=== PATIENT | female | born 1940 ===

== ENCOUNTER 2018-01-03 12:36 | Inpatient (IN) | payer MEDICARE, MEDICAID ==
[2018-01-03 13:03] VITALS: BMI 28.3
[2018-01-03 13:44] LABS: VENOUS BLOOD GAS BASE EXCESS 1.3 mmol/L (0.0-2.0); VENOUS BLOOD GAS PO2 42 mm/Hg (30-55); VENOUS BLOOD PH 7.42 (7.32-7.43)
[2018-01-03 13:47] LABS: BASO # 0.02 K/mm3 (0.0-2.0); BASO % 0.2 % (0.0-3.0); EOS # 0.1 (0.0-0.7); EOS % 0.4 % (1.5-5.0); GRAN # 8.2 (1.4-6.5); HEMOGLOBIN 11.2 g/dL (12.0-16.0); LYMPH # 2.2 (1.2-3.4); LYMPH % 19.6 % (22.0-35.0); MEAN CORPUSCULAR HEMOGLOBIN 31.3 pg (25.0-35.0); MEAN CORPUSCULAR HGB CONC 36.4 g/dl (31.0-37.0); MEAN PLATELET VOLUME 10.8 fl (7.0-11.0); MONO # 0.8 (0.1-0.6); MONO % 6.8 % (1.0-6.0); RBC 3.58 10^6/uL (3.5-6.1); RED CELL DISTRIBUTION WIDTH 12.5 % (11.5-14.5); WHITE BLOOD COUNT 11.3 10^3/ul (4.5-11.0)
--- NOTE | 2018-01-03 13:55 | ED PDOC ---
Arrival/HPI - General Historian: Family EM Caveat: Altered Mental Status, Dementia, Uncooperative, Language Barrier - History of Present Illness Narrative History of Present Illness (Text): 01/03/18 13:58 77 F with PMHx of Alzheimer's Disease, HTN, RA, GERD presenting to the ED with AMS, possible syncopal episode. Patient refuses to talk and daughter at bedside is poor historian. Per daughter, patient was at home with other daughter when she became dizzy and fell on her bed earlier this AM. Patient was witnessed shaking on her bed for ~30 mins, eyes closed during the episode. Patient was nonverbal during the encounter; daughter denies any frothing at the mouth or tongue biting. Of note, daughter endorses 2 episodes of nonbloody nonbilious vomiting this morning prior to the episode. ROS unattainable due to patient's condition. PMHx: HTN, GERD, RA, Alzheimer's Disease PSHx: R knee, hysterectomy, appendectomy, bladder Allergies: contrast dye Home Medications: as per chart FHx: unknown Social Hx: no alcohol, tobacco, illicit drug use. PMD: Dr. Roche ([employer]) Time/Duration: 4-6 hours Symptom Onset: Sudden Symptom Course: Unchanged Quality: Unable to Describe Activities at Onset: Light <Yony Moy - Last Filed: 01/03/18 17:14> <Sahil Mccormick - Last Filed: 01/03/18 19:51> - General Chief Complaint: Back Pain Time Seen by Provider: 01/03/18 13:33 Past Medical History - Provider Review Nursing Documentation Reviewed: Yes - Infectious Disease Hx of Infectious Diseases: None - Reproductive Menopause: Yes - Cardiac Hx Hypertension: Yes - Pulmonary Hx Respiratory Disorders: No - Neurological Hx Alzheimer's Disease: Yes - HEENT Hx Cataracts: Yes (sx ou) - Renal Hx Renal Disorder: No - Endocrine/Metabolic Hx Endocrine Disorders: No - Hematological/Oncological Hx Blood Disorders: No - Integumentary Hx Dermatological Disorder: No - Musculoskeletal/Rheumatological Hx Arthritis: Yes Hx Osteoporosis: Yes Hx Rheumatoid Arthritis: Yes - Gastrointestinal Hx Gastrointestinal Disorders: No - Genitourinary/Gynecological Hx Genitourinary Disorders: No - Psychiatric Hx Psychophysiologic Disorder: No Hx Substance Use: No - Surgical History Hx Appendectomy: Yes - Anesthesia Hx Anesthesia: Yes Hx Anesthesia Reactions: No Hx Malignant Hyperthermia: No <Yony Moy - Last Filed: 01/03/18 17:14> Family/Social History - Physician Review Nursing Documentation Reviewed: Yes Family/Social History: Unknown Family HX Smoking Status: Never Smoked Hx Alcohol Use: No Hx Substance Use: No <Yony Moy - Last Filed: 01/03/18 17:14> Allergies/Home Meds <Yony Moy - Last Filed: 01/03/18 17:14> <Sahil Mccormick - Last Filed: 01/03/18 19:51> Allergies/Adverse Reactions: Allergies Iodinated Contrast- Oral and IV Dye [Iodinated Contrast Media - IV Dye] Allergy (Verified 10/07/15 14:42) RASH iodine Adverse Reaction (Verified 10/28/16 13:41) SWELLING Home Medications: Home Meds Medication Instructions Recorded Confirmed RX: Baclofen [Lioresal] 10 mg PO BID 02/03/17 01/03/18 RX: Clopidogrel [Plavix] 75 mg PO DAILY 02/03/17 01/03/18 RX: Folic Acid 1 mg PO DAILY 02/03/17 01/03/18 RX: Lubiprostone [Amitiza] 24 mcg PO BID 02/03/17 01/03/18 RX: Memantine [Namenda] 10 mg PO DAILY 02/03/17 01/03/18 RX: Omeprazole 20 mg PO DAILY 02/03/17 01/03/18 Ascorbic Acid [Vitamin C with Zita 1 tab PO DAILY 01/03/18 01/03/18 Hips] Cyanocobalamin [Vitamin B12 1000 1 tab PO DAILY 01/03/18 01/03/18 mcg Tab] Cyclobenzaprine [Flexeril] 1 tab PO BID 01/03/18 01/03/18 Fish Oil/Dha/Epa [Fish Oil 1,200 1 cap PO DAILY 01/03/18 01/03/18 mg Fish Oil] Furosemide [Lasix] 1 tab PO DAILY 01/03/18 01/03/18 Pantoprazole [Protonix EC Tab] 1 tab PO DAILY 01/03/18 01/03/18 RX: Aspirin [Ecotrin] 1 tab PO DAILY 01/03/18 01/03/18 RX: Atorvastatin [Lipitor] 1 tab PO HS 01/03/18 01/03/18 RX: Baclofen [Lioresal] 1 tab PO BID 01/03/18 01/03/18 RX: Diclofenac Sodium [Voltaren] 1 tab PO BID 01/03/18 01/03/18 RX: Enalapril Maleate [Vasotec] 20 mg PO DAILY 01/03/18 01/03/18 RX: Loratadine [Claritin] 1 tab PO DAILY 01/03/18 01/03/18 RX: amLODIPine [Norvasc] 1 tab PO DAILY 01/03/18 01/03/18 RX: hydroCHLOROthiazide 1 tab PO DAILY 01/03/18 01/03/18 [Hydrodiuril] Vitamin B Complex [Super B-50 1 cap PO DAILY 01/03/18 01/03/18 Complex] Review of Systems - Review of Systems Systems not reviewed;Unavailable: Uncooperative <Yony Moy - Last Filed: 01/03/18 17:14> Physical Exam - Physical Exam Physical Exam Limitations: Altered Mental Status, Uncooperative Vital Signs Reviewed: Yes Vital Signs Temp Pulse Resp BP Pulse Ox 01/03/18 12:50 97.4 F L 83 16 113/48 L 100 Temperature: Afebrile Blood Pressure: Hypotensive Pulse: Regular Respiratory Rate: Normal Appearance: Positive for: Uncomfortable Mental Status: Positive for: Confused, Agitated Finger Stick Blood Glucose: 124 - Systems Exam Head: Present: Atraumatic, Normocephalic Pupils: Present: Other (Pt refuses to open eyes) Mouth: Present: Other (Pt refuses to open mouth) Pharnyx: Present: Other (Pt refuses to open mouth) Nose (External): Present: Atraumatic Respiratory/Chest: Present: Clear to Auscultation. No: Accessory Muscle Use Cardiovascular: Present: Regular Rate and Rhythm, Normal S1, S2 Abdomen: Present: Tenderness (TTP x4 quadrants), Normal Bowel Sounds. No: Rebound, Guarding Upper Extremity: Present: Normal Inspection, NORMAL PULSES, Capillary Refill < 2s, Other (B/L UE contracted. Pt keeps arms flexed, hands clenched to chest, refuses to move). No: Cyanosis, Edema, Tenderness, Swelling Lower Extremity: Present: Normal Inspection, Edema, NORMAL PULSES, Capillary Refill < 2 s. No: CALF TENDERNESS, Cyanosis Neurological: No: Speech Normal (Patient refusing to speak; normally verbal, per daughter at bedside) Skin: Present: Warm, Dry, Normal Color Psychiatric: Present: Agitated <Yony Moy - Last Filed: 01/03/18 17:14> Vital Signs Temp Pulse Resp BP Pulse Ox 01/03/18 12:50 97.4 F L 83 16 113/48 L 100 <Sahil Mccormick - Last Filed: 01/03/18 19:51> Medical Decision Making ED Course and Treatment: 01/03/18 14:09 Impression: 77 yo F with PMHx of HTN, GERD, RA, Alzheimer's disease presenting with AMS, possible syncopal episode Plan: --CBC, CMP --PT/PTT --EKG --Troponin --VBG --UA --UCx, BCx --IVF --CXR --Head CT w/o contrast --CT abd/pelvis w/o contrast --monitor and disposition - Lab Interpretations Lab Results: Lab Results 01/03/18 13:15: pO2 42, VBG pH 7.42, VBG pCO2 40.0, VBG HCO3 25.9, VBG Total CO2 27.1, VBG O2 Sat (Calc) 83.4 H, VBG Base Excess 1.3, VBG Potassium 4.5, Sodium 118.0 L*, Chloride 83.0 L, Glucose 98, Lactate 1.7, FiO2 21.0, Venous Blood Potassium 4.5 - RAD Interpretation Narrative RAD Interpretations (Text): 01/03/18 16:46 CXR: no acute findings CT head: no acute findings CT abdomen/pelvis: no acute findings Restaurant Lead: ED Physician - EKG Interpretation EKG Interpretation (Text): 01/03/18 14:11 Sinus rhythm with 1st degree AV block with premature supraventricular complexes HR [address] and T wave abnormality, consider lateral ischemia Interpreted by ED Physician: Yes Type: 12 lead EKG <Yony Moy - Last Filed: 01/03/18 17:14> ED Course and Treatment: 01/03/18 Patient Seen With Resident: In agreement with resident note. Patient was seen and evaluated with resident, came up with plan and treatment together. Impression: Patient is a 77 year old female who presents to the Emergency department with her daughter for altered mental status and possible syncopal event. 01/03/18 19:50 pt seen with resident ?syncope, ams. in er, pt with urianry renetion, 1000cc. new hyponatremia, and tamara. ct neg. cxr neg. suspect post renal azotemia, accepted hospitalist. - Lab Interpretations Lab Results: 01/03/18 13:15 01/03/18 13:50 Lab Results 01/03/18 14:00: Urine Color Yellow, Urine Appearance Clear, Urine pH 7.5, Ur Specific [place] 1.010, Urine Protein Trace H, Urine Glucose (UA) Negative, Urine Ketones Negative, Urine Blood Small H, Urine Nitrate Negative, Urine Bilirubin Negative, Urine Urobilinogen 0.2, Ur Leukocyte Esterase Small H, Urine RBC 5 - 10, Urine WBC 5 - 10, Ur Epithelial Cells 4 - 5, Urine Bacteria Mod 01/03/18 13:50: Sodium 123 L, Chloride 83 L, Potassium 4.7, Carbon Dioxide 24, Anion Gap 21 H, BUN 67 H, Creatinine 2.5 H, Est GFR ( Amer) 23, Est GFR (Non-Af Amer) 19, Random Glucose 99, Calcium 10.8 H, Total Bilirubin 0.5, AST 40 H D, ALT 31, Alkaline Phosphatase 74, Total Creatine Kinase 214, Troponin I 0.03, Total Protein 7.6, Albumin 4.4, Globulin 3.3, Albumin/Globulin Ratio 1.3 01/03/18 13:15: pO2 42, VBG pH 7.42, VBG pCO2 40.0, VBG HCO3 25.9, VBG Total CO2 27.1, VBG O2 Sat (Calc) 83.4 H, VBG Base Excess 1.3, VBG Potassium 4.5, Sodium 118.0 L*, Chloride 83.0 L, Glucose 98, Lactate 1.7, FiO2 21.0, Venous Blood Potassium 4.5 01/03/18 13:15: PT 10.6, INR 0.93, APTT 24.5 L 01/03/18 13:15: WBC 11.3 H, RBC 3.58, Hgb 11.2 L, Hct 30.8 L, MCV 86.0, MCH 31.3, MCHC 36.4, RDW 12.5, Plt Count 259, MPV 10.8, Gran % 73.0 H, Lymph % (Auto) 19.6 L, [place] % (Auto) 6.8 H, Eos % (Auto) 0.4 L, Baso % (Auto) 0.2, Gran # 8.20 H, Lymph # (Auto) 2.2, [place] # (Auto) 0.8 H, Eos # (Auto) 0.1, Baso # (Auto) 0.02 - RAD Interpretation Narrative RAD Interpretations (Text): 01/03/18 16:[address] without Contrast: Dictator : Ilir Hong MD FINDINGS: HEMORRHAGE: No intracranial hemorrhage. BRAIN: No mass effect or edema. There is mild to moderate atrophy. VENTRICLES: Unremarkable. No hydrocephalus. CALVARIUM: Unremarkable. PARANASAL SINUSES: Unremarkable as visualized. No significant inflammatory changes. MASTOID AIR CELLS: Unremarkable as visualized. No inflammatory changes. OTHER FINDINGS: None. IMPRESSION: No acute findings 01/03/18 16:[address] without contrast: Dictator : Ilir Hong MD FINDINGS: LOWER THORAX: Unremarkable. LIVER: Unremarkable. No gross lesion or ductal dilatation. GALLBLADDER AND BILE DUCTS: Unremarkable. PANCREAS: Unremarkable. No gross lesion or ductal dilatation. SPLEEN: Unremarkable. ADRENALS: Unremarkable. No mass. KIDNEYS AND URETERS: Unremarkable. No hydronephrosis. No solid mass. VASCULATURE: Unremarkable. No aortic aneurysm. BOWEL: Unremarkable. No obstruction. No gross mural thickening. APPENDIX: Unremarkable. Normal appendix. PERITONEUM: Unremarkable. No free fluid. No free air. LYMPH NODES: Unremarkable. No enlarged lymph nodes. BLADDER: Unremarkable. REPRODUCTIVE: Unremarkable. BONES: No acute fracture. OTHER FINDINGS: None. IMPRESSION: No acute intra-abdominal findings 01/03/18 16:58 Chest X-ray: Dictator : Ilir Hong MD FINDINGS: LUNGS: No active pulmonary disease. PLEURA: No significant pleural effusion identified, no pneumothorax apparent. CARDIOVASCULAR: Normal. OSSEOUS STRUCTURES: No significant abnormalities. VISUALIZED UPPER ABDOMEN:Normal. OTHER FINDINGS: Mild aortic tortuosity. The patient's hands are superimposed over the upper chest IMPRESSION: No active disease. Radiology Orders: 01/03/18 13:54 ABD & PELVIS W/O PO OR IV CONT [CT] Stat HEAD W/O CONTRAST [CT] Stat CXR [CHEST PORTABLE] [RAD] Stat Restaurant Lead: Radiologist - Medication Orders Current Medication Orders: Sodium Chloride (Sodium Chloride 0.9%) 1,000 mls @ 100 mls/hr IV .Q10H NÉSTOR Last Admin: 01/03/18 14:57 Dose: 100 mls/hr eMAR Start Stop Document 01/03/18 14:57 SRE (Rec: 01/03/18 14:57 SRE [id number]) Intravenous Solution Start Date 01/03/18 Start Time 14:57 Discontinued Medications Ceftriaxone Sodium (Rocephin 1 Gram Ivpb) 1 gm in 100 mls @ 100 mls/hr IVPB STAT STA; Protocol Stop: 01/03/18 15:37 Last Admin: 01/03/18 14:56 Dose: 100 mls/hr eMAR Start Stop Document 01/03/18 14:56 SRE (Rec: 01/03/18 14:56 SRE [id number]) Intravenous Solution Start Date 01/03/18 Start Time 14:56 End Date 01/03/18 End time 15:55 Total Infusion Time 59 <Sahil Mccormick - Last Filed: 01/03/18 19:51> - Scribe Statement The provider has reviewed the documentation as recorded by the Scribanabelle Turner Provider Scribe Attestation: All medical record entries made by the Scribe were at my direction and personally dictated by me. I have reviewed the chart and agree that the record accurately reflects my personal performance of the history, physical exam, medical decision making, and the department course for this patient. I have also personally directed, reviewed, and agree with the discharge instructions and disposition. <Sahil Mccomrick - Last Filed: 01/03/18 19:51> Disposition/Present on Arrival - Present on Arrival Any Indicators Present on Arrival: No History of DVT/PE: No History of Uncontrolled Diabetes: No Urinary Catheter: No History of Decub. Ulcer: No History Surgical Site Infection Following: None - Disposition Have Diagnosis and Disposition been Completed?: Yes Disposition Time: 16:48 <Yony Moy - Last Filed: 01/03/18 17:14> <Sahil Mccormick - Last Filed: 01/03/18 19:51> - Disposition Diagnosis: UTI (urinary tract infection), Hyponatremia, Altered mental status Disposition: HOSPITALIZED Patient Problems: Current Active Problems Problem Status Onset Altered mental status Acute Hyponatremia Acute Urinary tract infection Acute Condition: STABLE
[2018-01-03 13:56] LABS: INR 0.93; PARTIAL THROMBOPLASTIN TIME 24.5 Seconds (25.1-36.5); PROTHROMBIN TIME 10.6 SECONDS (9.4-12.5)
[2018-01-03] MEDS ORDERED: Sodium Chloride 0.9% 1,000 ML IV SCH (14:00)
[2018-01-03 14:17] LABS: ALB/GLOB RATIO 1.3 (1.1-1.8); ALBUMIN 4.4 g/dL (3.0-4.8); CALCIUM 10.8 mg/dL (8.4-10.5)
[2018-01-03 14:22] LABS: PH,URINE 7.5 (4.7-8.0); URINE BILIRUBIN NEGATIVE (NEGATIVE); URINE BLOOD SMALL (NEGATIVE); URINE GLUCOSE (UA) NEGATIVE (NEGATIVE); URINE LEUKOCYTE ESTERASE SMALL Leu/uL (NEGATIVE); URINE PROTEIN TRACE mg/dL (<30 mg/dL); URINE UROBILINOGEN 0.2 E.U./dL (<1 E.U./dL)
[2018-01-03 14:28] LABS: TROPONIN I 0.03 ng/mL
[2018-01-03 14:33] LABS: URINE APPEARANCE CLEAR (CLEAR); URINE COLOR YELLOW (YELLOW)
[2018-01-03 14:37] LABS: URINE BACTERIA MOD (NEG)
[2018-01-03] MEDS ORDERED: cefTRIAXone 1 gm 1 GM/100 ML BAG IVPB STA (14:38)
--- NOTE | 2018-01-03 14:44 | RAD ---
Date of service: 01/03/2018 HISTORY: ams COMPARISON: 09/22/2017 FINDINGS: LUNGS: No active pulmonary disease. PLEURA: No significant pleural effusion identified, no pneumothorax apparent. CARDIOVASCULAR: Normal. OSSEOUS STRUCTURES: No significant abnormalities. VISUALIZED UPPER ABDOMEN: Normal. OTHER FINDINGS: Mild aortic tortuosity. The patient's hands are superimposed over the upper chest IMPRESSION: No active disease.
--- NOTE | 2018-01-03 14:58 | CT ---
Date of service: 01/03/2018 PROCEDURE: CT HEAD WITHOUT CONTRAST. HISTORY: ams COMPARISON: None available. TECHNIQUE: Axial computed tomography images were obtained through the head/brain without intravenous contrast. Radiation dose: Total exam DLP = 857 mGy-cm. This CT exam was performed using one or more of the following dose reduction techniques: Automated exposure control, adjustment of the mA and/or kV according to patient size, and/or use of iterative reconstruction technique. FINDINGS: HEMORRHAGE: No intracranial hemorrhage. BRAIN: No mass effect or edema. There is mild to moderate atrophy. VENTRICLES: Unremarkable. No hydrocephalus. CALVARIUM: Unremarkable. PARANASAL SINUSES: Unremarkable as visualized. No significant inflammatory changes. MASTOID AIR CELLS: Unremarkable as visualized. No inflammatory changes. OTHER FINDINGS: None. IMPRESSION: No acute findings
--- NOTE | 2018-01-03 15:01 | CT ---
Date of service: 01/03/2018 PROCEDURE: CT Abdomen and Pelvis without intravenous contrast HISTORY: abd pain/ams COMPARISON: None. TECHNIQUE: Without contrast.. Contrast dose: Radiation dose: Total exam DLP = 886 mGy-cm. This CT exam was performed using one or more of the following dose reduction techniques: Automated exposure control, adjustment of the mA and/or kV according to patient size, and/or use of iterative reconstruction technique. FINDINGS: LOWER THORAX: Unremarkable. LIVER: Unremarkable. No gross lesion or ductal dilatation. GALLBLADDER AND BILE DUCTS: Unremarkable. PANCREAS: Unremarkable. No gross lesion or ductal dilatation. SPLEEN: Unremarkable. ADRENALS: Unremarkable. No mass. KIDNEYS AND URETERS: Unremarkable. No hydronephrosis. No solid mass. VASCULATURE: Unremarkable. No aortic aneurysm. BOWEL: Unremarkable. No obstruction. No gross mural thickening. APPENDIX: Unremarkable. Normal appendix. PERITONEUM: Unremarkable. No free fluid. No free air. LYMPH NODES: Unremarkable. No enlarged lymph nodes. BLADDER: Unremarkable. REPRODUCTIVE: Unremarkable. BONES: No acute fracture. OTHER FINDINGS: None. IMPRESSION: No acute intra-abdominal findings
--- NOTE | 2018-01-03 15:48 | CARD ---
APPROVED REPORT Date of service: 01/03/2018 EKG Measurement Heart [id number] <Conclusion> Sinus rhythm with 1st degree AV block Baseline artifact Abnormal ECG
[2018-01-03 16:20] LABS: OSMOLALITY,URINE 149 mosm/kg (300-1000)
--- NOTE | 2018-01-03 16:35 | CP.PCM.HP ---
<Merry Rosales - Last Filed: 01/04/18 00:48> History of Present Illness - History of Present Illness History of Present Illness: Internal medicine History and Physical for Dr. Ledbetter 77 y/o F with PMHx of Alzheimer's Disease, HTN, RA, GERD who is yakut speaking only presents to ED after experiencing generalized muscle tightness and inability to talk. Symptoms lasted for about 3 hours and resolved on their own. Patient is accompanied by her daughters. Per daughter,patient was at home when she became dizzy and fell onto her bed earlier this AM. Patient states that she had whole body muscle rigidity and had clenched jaws. She was not able to communicate with her daughters. Patient denies LOC and was aware of her surroundings. She was able to talk and her muscles relaxed while she was in the ED. upon interview patient had resolved to baseline was alert orientedx4 able to subtract by sevens and handles her own grocery shopping and finances at home and was able to communicate this. CT head was ordered in ED and was negative. In the ED, a catheter was inserted and 1700cc of urine was voided. Patient denies abdominal pain dysuria, pain with urination, fevers, and chills. She states she did void this morning and felt that she emptied her bladder completely. Patient did experience 2 episodes of nonbloody vomiting this morning prior to this episode but denies any diarrhea or changes in bowel habits. Patient denies headache, CP, SOB, abdominal pain, sore throat, weakness, numbness, vision loss, hearing loss. PMHx: HTN, GERD, RA, Alzheimer's Disease, UTI requiring hospitalization in Mar 2017 PSHx: R knee, hysterectomy, appendectomy, bladder Allergies: Iodine Family Hx: DM in family Social hx: Lives with daughter. Denies smoking and alcohol use. PCP: Dr. Roche Present on Admission - Present on Admission Any Indicators Present on Admission: Yes Urinary Catheter: Yes Review of Systems - Review of Systems All systems: reviewed and no additional remarkable complaints except Review of Systems: as per HPI Past Patient History - Infectious Disease Hx of Infectious Diseases: None - Past Medical History & Family History Past Medical History?: Yes - Past Social History Smoking Status: Never Smoked - CARDIAC Hx Hypertension: Yes - PULMONARY Hx Respiratory Disorders: No - NEUROLOGICAL Hx Alzheimer's Disease: Yes - HEENT Hx Cataracts: Yes (sx ou) - RENAL Hx Chronic Kidney Disease: No - ENDOCRINE/METABOLIC Hx Endocrine Disorders: No - HEMATOLOGICAL/ONCOLOGICAL Hx Blood Disorders: No - INTEGUMENTARY Hx Dermatological Problems: No - MUSCULOSKELETAL/RHEUMATOLOGICAL Hx Arthritis: Yes Hx Osteoporosis: Yes Hx Rheumatoid Arthritis: Yes - GASTROINTESTINAL Hx Gastrointestinal Disorders: No - GENITOURINARY/GYNECOLOGICAL Hx Genitourinary Disorders: No - PSYCHIATRIC Hx Psychophysiologic Disorder: No Hx Substance Use: No - SURGICAL HISTORY Hx Appendectomy: Yes - ANESTHESIA Hx Anesthesia: Yes Hx Anesthesia Reactions: No Hx Malignant Hyperthermia: No Meds Allergies/Adverse Reactions: Allergies Allergy/AdvReac Type Severity Reaction Status Date / Time Iodinated Contrast- Oral and Allergy RASH Verified 10/07/15 14:42 IV Dye [Iodinated Contrast Media - IV Dye] iodine AdvReac SWELLING Verified 10/28/16 13:41 Physical Exam - Constitutional Appears: Well, Non-toxic, No Acute Distress, Chronically Ill - Head Exam Head Exam: ATRAUMATIC, NORMOCEPHALIC - Eye Exam Eye Exam: EOMI - ENT Exam ENT Exam: Mucous Membranes Dry - Respiratory Exam Respiratory Exam: Clear to Auscultation Bilateral, NORMAL BREATHING PATTERN - Cardiovascular Exam Cardiovascular Exam: REGULAR RHYTHM - GI/Abdominal Exam GI & Abdominal Exam: Soft. absent: Distended, Guarding, Rebound, Rigid, Tenderness - Extremities Exam Extremities exam: Positive for: pedal pulses present. Negative for: calf tenderness, pedal edema, tenderness - Neurological Exam Neurological exam: Alert, CN II-XII Intact, Oriented x3 - Psychiatric Exam Psychiatric exam: Normal Affect, Normal Mood - Skin Skin Exam: Dry, Intact, Normal Color, Warm Results - Vital Signs Recent Vital Signs: Last Vital Signs Temp 97.4 F L 01/03/18 12:50 Pulse 87 01/03/18 16:14 Resp 18 01/03/18 16:14 BP 129/44 L 01/03/18 16:14 Pulse Ox 100 01/03/18 16:14 - Labs Result Diagrams: 01/03/18 13:15 01/03/18 23:50 Labs: Laboratory Results - last 24 hr 01/03/18 01/03/18 01/03/18 13:15 13:15 13:15 WBC 11.3 H RBC 3.58 Hgb 11.2 L Hct 30.8 L MCV 86.0 MCH 31.3 MCHC 36.4 RDW 12.5 Plt Count 259 MPV 10.8 Gran % 73.0 H Lymph % (Auto) 19.6 L [place] % (Auto) 6.8 H Eos % (Auto) 0.4 L Baso % (Auto) 0.2 Gran # 8.20 H Lymph # (Auto) 2.2 [place] # (Auto) 0.8 H Eos # (Auto) 0.1 Baso # (Auto) 0.02 PT 10.6 INR 0.93 APTT 24.5 L pO2 42 VBG pH 7.42 VBG pCO2 40.0 VBG HCO3 25.9 VBG Total CO2 27.1 VBG O2 Sat (Calc) 83.4 H VBG Base Excess 1.3 VBG Potassium 4.5 Sodium 118.0 L* Chloride 83.0 L Glucose 98 Lactate 1.7 FiO2 21.0 Potassium Carbon Dioxide Anion Gap BUN Creatinine Est GFR ( Amer) Est GFR (Non-Af Amer) Random Glucose Serum Osmolality Calcium Total Bilirubin AST ALT Alkaline Phosphatase Total Creatine Kinase Troponin I Total Protein Albumin Globulin Albumin/Globulin Ratio Venous Blood Potassium 4.5 Urine Color Urine Appearance Urine pH Ur Specific [place] Urine Protein Urine Glucose (UA) Urine Ketones Urine Blood Urine Nitrate Urine Bilirubin Urine Urobilinogen Ur Leukocyte Esterase Urine RBC Urine WBC Ur Epithelial Cells Urine Bacteria Urine Osmolality Ur Random Sodium 01/03/18 01/03/18 01/03/18 13:50 13:50 14:00 WBC RBC Hgb Hct MCV MCH MCHC RDW Plt Count MPV Gran % Lymph % (Auto) [place] % (Auto) Eos % (Auto) Baso % (Auto) Gran # Lymph # (Auto) [place] # (Auto) Eos # (Auto) Baso # (Auto) PT INR APTT pO2 VBG pH VBG pCO2 VBG HCO3 VBG Total CO2 VBG O2 Sat (Calc) VBG Base Excess VBG Potassium Sodium 123 L Chloride 83 L Glucose Lactate FiO2 Potassium 4.7 Carbon Dioxide 24 Anion Gap 21 H BUN 67 H Creatinine 2.5 H Est GFR ( Amer) 23 Est GFR (Non-Af Amer) 19 Random Glucose 99 Serum Osmolality 276 Calcium 10.8 H Total Bilirubin 0.5 AST 40 H D ALT 31 Alkaline Phosphatase 74 Total Creatine Kinase 214 Troponin I 0.03 Total Protein 7.6 Albumin 4.4 Globulin 3.3 Albumin/Globulin Ratio 1.3 Venous Blood Potassium Urine Color Yellow Urine Appearance Clear Urine pH 7.5 Ur Specific [place] 1.010 Urine Protein Trace H Urine Glucose (UA) Negative Urine Ketones Negative Urine Blood Small H Urine Nitrate Negative Urine Bilirubin Negative Urine Urobilinogen 0.2 Ur Leukocyte Esterase Small H Urine RBC 5 - 10 Urine WBC 5 - 10 Ur Epithelial Cells 4 - 5 Urine Bacteria Mod Urine Osmolality Ur Random Sodium 01/03/18 15:58 WBC RBC Hgb Hct MCV MCH MCHC RDW Plt Count MPV Gran % Lymph % (Auto) [place] % (Auto) Eos % (Auto) Baso % (Auto) Gran # Lymph # (Auto) [place] # (Auto) Eos # (Auto) Baso # (Auto) PT INR APTT pO2 VBG pH VBG pCO2 VBG HCO3 VBG Total CO2 VBG O2 Sat (Calc) VBG Base Excess VBG Potassium Sodium Chloride Glucose Lactate FiO2 Potassium Carbon Dioxide Anion Gap BUN Creatinine Est GFR ( Amer) Est GFR (Non-Af Amer) Random Glucose Serum Osmolality Calcium Total Bilirubin AST ALT Alkaline Phosphatase Total Creatine Kinase Troponin I Total Protein Albumin Globulin Albumin/Globulin Ratio Venous Blood Potassium Urine Color Urine Appearance Urine pH Ur Specific [place] Urine Protein Urine Glucose (UA) Urine Ketones Urine Blood Urine Nitrate Urine Bilirubin Urine Urobilinogen Ur Leukocyte Esterase Urine RBC Urine WBC Ur Epithelial Cells Urine Bacteria Urine Osmolality 149 L Ur Random Sodium 43 Assessment & Plan - Assessment and Plan (Free Text) Assessment: 77yr F pmh HTN, GERD, RA, Alzheimer's Disease, UTI requiring hospitalization in Mar 2017 presents to [facility] ED with dizziness followed by episode of muscle clenchi ng in which the patient denies LOC and has full memory as well as urinary retention and hyponatremia. Patient may have become dizzy 2/2 excessive diuresis vs seizure (unlikely) vs UTI (WBC 11.8 afebrile UA with leuk esterase bacteria and WBC) Plan: Dizziness/ altered mental status * possibly d/t hyponatremia; will correct slowly * unlikely seizure activity as patient was aware and alert during the episode and has full memory * patient nutritional status may effect mental status will obtain nutrition eval Urinary retention * sethi output of 1700cc when placed * patient denies abdominal or suprapubic pain * likely due to over diuresis will attempt voiding trial after 24 hours sethi Hyponatremia * possibly d/t over diuresis * hold lasix, HCTZ and enalapril * begin gentle hydration of NS @70 * nutrition eval for possible failure of adequate intake * repat BMP in PM to monitor for improvement UTI * WBC, afebrile * UA shows positive leukocyte esterase, WBC and bacteria in urine * patient has history of UTI in March 2017 * begin on rocephin HTN * discontinue enalapril, HCTZ and lasix * c/w home amlodipine * will monitor GERD * c/w home medications * will monitor HLD * c/w home medications Patient seen and discussed with Dr. Anatoyl Rosales, PGY 1 - Date & Time Date: 01/03/18 Time: 15:30 <Alina Ledbetter - Last Filed: 01/06/18 14:56> Results - Vital Signs Recent Vital Signs: Last Vital Signs Temp 97.6 F 01/06/18 06:00 Pulse 84 01/06/18 12:00 Resp 18 01/06/18 12:00 BP 154/84 H 01/06/18 12:00 Pulse Ox 99 01/06/18 00:32 - Labs Result Diagrams: 01/06/18 12:30 01/06/18 12:30 Labs: Laboratory Results - last 24 hr 01/05/18 01/05/18 01/05/18 21:49 22:07 22:07 WBC 7.5 D RBC 3.54 Hgb 10.9 L Hct 32.2 L MCV 91.0 MCH 30.8 MCHC 33.9 RDW 13.4 Plt Count 259 MPV 9.9 Gran % 57.3 Lymph % (Auto) 31.3 [place] % (Auto) 10.0 H Eos % (Auto) 1.1 L Baso % (Auto) 0.3 Gran # 4.28 Lymph # (Auto) 2.3 [place] # (Auto) 0.8 H Eos # (Auto) 0.1 Baso # (Auto) 0.02 pCO2 pO2 HCO3 ABG pH ABG Total CO2 ABG O2 Saturation ABG Base Excess ABG Potassium Glucose Lactate FiO2 Sodium 137 Potassium 4.4 Chloride 107 Carbon Dioxide 22 Anion Gap 12 BUN 23 H Creatinine 1.0 Est GFR ( Amer) > 60 Est GFR (Non-Af Amer) 54 POC Glucose (mg/dL) 137 H Random Glucose 125 H Calcium 9.8 Phosphorus 2.3 L Magnesium 1.7 Total Bilirubin 0.2 AST 35 ALT 20 Alkaline Phosphatase 62 Lactate Dehydrogenase 415 Total Creatine Kinase 48 Troponin I 0.05 D NT-Pro-B Natriuret Pep 2230 H Total Protein 6.9 Albumin 3.7 Globulin 3.2 Albumin/Globulin Ratio 1.2 Prolactin 40.5 H Arterial Blood Potassium 01/05/18 01/06/18 01/06/18 22:10 12:30 12:30 WBC 7.8 RBC 3.75 Hgb 11.7 L Hct 34.4 L MCV 91.7 MCH 31.2 MCHC 34.0 RDW 13.4 Plt Count 258 MPV 9.8 Gran % 64.0 Lymph % (Auto) 28.6 [place] % (Auto) 5.4 Eos % (Auto) 1.7 Baso % (Auto) 0.3 Gran # 5.03 Lymph # (Auto) 2.2 [place] # (Auto) 0.4 Eos # (Auto) 0.1 Baso # (Auto) 0.02 pCO2 34 L pO2 121.0 H HCO3 22.1 ABG pH 7.42 ABG Total CO2 23.1 ABG O2 Saturation 98.6 H ABG Base Excess -1.7 ABG Potassium 4.2 Glucose 125 H Lactate 0.9 FiO2 28.0 Sodium 137.0 141 Potassium 4.4 Chloride 110.0 H 108 H Carbon Dioxide 23 Anion Gap 14 BUN 17 Creatinine 0.9 Est GFR ( Amer) > 60 Est GFR (Non-Af Amer) > 60 POC Glucose (mg/dL) Random Glucose 97 Calcium 10.9 H Phosphorus 2.6 Magnesium 1.7 Total Bilirubin 0.5 AST 29 ALT 20 Alkaline Phosphatase 66 Lactate Dehydrogenase 512 Total Creatine Kinase 56 Troponin I 0.09 D NT-Pro-B Natriuret Pep Total Protein 7.6 Albumin 4.2 Globulin 3.4 Albumin/Globulin Ratio 1.2 Prolactin Arterial Blood Potassium 4.2 Attending/Attestation - Attestation I have personally seen and examined this patient.: Yes I have fully participated in the care of the patient.: Yes I have reviewed all pertinent clinical information: Yes Notes (Text): 01/06/18 14:50 Medical record note made by the resident after discussion with my direction and input after the patient was personally seen and examined by me. I have reviewed the chart and agree that the record accurately reflects by personal performance of the history, physical exam, data review, and medical decision-making, in the course for the patient. I have also personally directed the plan of care. 77 yrs old Female with PMH of HTN, GERD, RA, Alzheimer's Disease and recurrent UTI is admitted with with dizziness followed by episode of muscle clenching in which the patient denies LOC and has full memory as well as urinary retention.Patient is also found to have UTI, acute renal failure and and hyponatremia secondary to over diuresis . We will hold diuretics and will start patient on IV hydration, we will monitor BUN/Creatinin and electrolye. UA, will start patient on IV antibiotics , will follow up cultures. Urinary Retension is likely due to medication, patient is on Baclofen, will hold muscle relaxant, UTI could have contributed. Management plan was discussed in detail with patient and family. Education was provided.
[2018-01-03] MEDS: Sodium Chloride 0.9% 1,000 ML IV SCH (17:22)
[2018-01-04 00:47] LABS: CALCIUM 10.3 mg/dL (8.4-10.5)
[2018-01-04] MEDS ORDERED: Sodium Chloride 0.9% 500 ML IV STA (04:56)
[2018-01-04 07:21] LABS: BASO # 0.02 K/mm3 (0.0-2.0); BASO % 0.3 % (0.0-3.0); EOS # 0.1 (0.0-0.7); EOS % 1.7 % (1.5-5.0); GRAN # 2.96 (1.4-6.5); GRAN % 51.3 % (50.0-68.0); HEMOGLOBIN 9.3 g/dL (12.0-16.0); LYMPH # 2.3 (1.2-3.4); LYMPH % 39.1 % (22.0-35.0); MEAN CELL VOLUME 87.9 fl (80.0-105.0); MEAN CORPUSCULAR HEMOGLOBIN 31.2 pg (25.0-35.0); MEAN CORPUSCULAR HGB CONC 35.5 g/dl (31.0-37.0); MEAN PLATELET VOLUME 10.3 fl (7.0-11.0); MONO # 0.4 (0.1-0.6); MONO % 7.6 % (1.0-6.0); RBC 2.98 10^6/uL (3.5-6.1); RED CELL DISTRIBUTION WIDTH 12.8 % (11.5-14.5); WHITE BLOOD COUNT 5.8 10^3/ul (4.5-11.0)
[2018-01-04 07:30] LABS: ALB/GLOB RATIO 1.2 (1.1-1.8); ALBUMIN 3.2 g/dL (3.0-4.8); CALCIUM 9.4 mg/dL (8.4-10.5)
[2018-01-04] MEDS: cefTRIAXone 1 gm 1 GM/100 ML BAG IVPB SCH (09:51)
[2018-01-04] MEDS: Sodium Chloride 0.9% 1,000 ML IV SCH ×3 (09:52→22:19)
--- NOTE | 2018-01-04 12:34 | CP.PCM.CON ---
<Ryan Lundberg - Last Filed: 01/04/18 14:28> History of Present Illness - History of Present Illness History of Present Illness: Ryan Lundberg DO, PGY-2: Nephrology Consult Note for Dr. Wiseman 77 y/o F with PMHx of Alzheimer's Disease, HTN, RA, GERD who is estonian speaking only presents to ED after experiencing generalized muscle tightness and inability to talk. Symptoms lasted for about 3 hours and resolved on their own. Patient is accompanied by her daughters. Per daughter,patient was at home when she became dizzy and fell onto her bed earlier this AM. Patient states that she had whole body muscle rigidity and had clenched jaws. She was not able to communicate with her daughters. Patient denies LOC and was aware of her surroundings. She was able to talk and her muscles relaxed while she was in the ED. upon interview patient had resolved to baseline was alert orientedx4 able to subtract by sevens and handles her own grocery shopping and finances at home and was able to communicate this. CT head was ordered in ED and was negative. Nephrology was consulted for LANDRY and hyponatremia. At the time of my encounter patient reports taking Diclofenac every day for knee pain and having episodes of diarrhea and NBNB emesis prior to arrival in the ED. She also reports having polyuria in the past few days and some bladder fullness but no dysura. In the ED, a catheter was inserted and 1700cc of urine was voided. Patient denies abdominal pain dysuria, pain with urination, fevers, and chills. She states she did void this morning and felt that she emptied her bladder complete ly. Patient did experience 2 episodes of nonbloody vomiting this morning prior to this episode but denies any diarrhea or changes in bowel habits. Patient denies headache, CP, SOB, abdominal pain, sore throat, weakness, numbness, vision loss, hearing loss. PMHx: HTN, GERD, RA, Alzheimer's Disease, UTI requiring hospitalization in Mar 2017 PSHx: R knee, hysterectomy, appendectomy, bladder Allergies: Iodine Family Hx: DM in family Social hx: Lives with daughter. Denies smoking and alcohol use. PCP: Dr. Roche Review of Systems - Review of Systems All systems: reviewed and no additional remarkable complaints except (as per H Pi) Past Patient History - Infectious Disease Hx of Infectious Diseases: None - Past Medical History & Family History Past Medical History?: Yes - Past Social History Smoking Status: Never Smoked - CARDIAC Hx Hypertension: Yes - PULMONARY Hx Respiratory Disorders: No - NEUROLOGICAL Hx Alzheimer's Disease: Yes - HEENT Hx Cataracts: Yes (sx ou) - RENAL Hx Chronic Kidney Disease: No - ENDOCRINE/METABOLIC Hx Endocrine Disorders: No - HEMATOLOGICAL/ONCOLOGICAL Hx Blood Disorders: No - INTEGUMENTARY Hx Dermatological Problems: No - MUSCULOSKELETAL/RHEUMATOLOGICAL Hx Arthritis: Yes Hx Osteoporosis: Yes Hx Rheumatoid Arthritis: Yes - GASTROINTESTINAL Hx Gastrointestinal Disorders: No - GENITOURINARY/GYNECOLOGICAL Hx Genitourinary Disorders: No - PSYCHIATRIC Hx Psychophysiologic Disorder: No Hx Substance Use: No - SURGICAL HISTORY Hx Appendectomy: Yes - ANESTHESIA Hx Anesthesia: Yes Hx Anesthesia Reactions: No Hx Malignant Hyperthermia: No Meds Allergies/Adverse Reactions: Allergies Allergy/AdvReac Type Severity Reaction Status Date / Time Iodinated Contrast- Oral and Allergy RASH Verified 10/07/15 14:42 IV Dye [Iodinated Contrast Media - IV Dye] iodine AdvReac SWELLING Verified 10/28/16 13:41 - Medications Medications: Current Medications Aspirin (Aspirin Chewable) 81 mg PO DAILY [facility] Last Admin: 01/04/18 09:51 Dose: 81 mg Atorvastatin Calcium (Lipitor) 10 mg PO DIN [facility] Last Admin: 01/03/18 19:04 Dose: 10 mg Clopidogrel Bisulfate (Plavix) 75 mg PO DAILY [facility] Last Admin: 01/04/18 09:51 Dose: 75 mg Heparin Sodium (Porcine) (Heparin) 5,000 units SC Q8 [facility]; Protocol Last Admin: 01/04/18 06:35 Dose: 5,000 units Ceftriaxone Sodium (Rocephin 1 Gram Ivpb) 1 gm in 100 mls @ 100 mls/hr IVPB DAILY [facility]; Protocol Last Admin: 01/04/18 09:51 Dose: 100 mls/hr Sodium Chloride (Sodium Chloride 0.9%) 1,000 mls @ 125 mls/hr IV .Q8H [facility] Last Admin: 01/04/18 12:03 Dose: 125 mls/hr Memantine (Namenda) 10 mg PO DAILY [facility] Last Admin: 01/04/18 09:51 Dose: 10 mg Physical Exam - Constitutional Appears: Non-toxic - Head Exam Head Exam: ATRAUMATIC, NORMOCEPHALIC - Eye Exam Eye Exam: EOMI, Normal appearance - ENT Exam ENT Exam: Mucous Membranes Dry - Neck Exam Neck exam: Positive for: Normal Inspection - Respiratory Exam Respiratory Exam: Clear to Auscultation Bilateral, NORMAL BREATHING PATTERN. absent: Accessory Muscle Use - Cardiovascular Exam Cardiovascular Exam: RRR, +S1, +S2 - GI/Abdominal Exam GI & Abdominal Exam: Normal Bowel Sounds, Soft. absent: Guarding - Extremities Exam Extremities exam: Positive for: normal inspection. Negative for: calf tenderness - Back Exam Back exam: NORMAL INSPECTION. absent: CVA tenderness (L), CVA tenderness (R) - Neurological Exam Neurological exam: Alert, CN II-XII Intact - Psychiatric Exam Psychiatric exam: Normal Affect, Normal Mood - Skin Skin Exam: Dry, Intact, Normal Color, Warm Results - Vital Signs Recent Vital Signs: Last Vital Signs Temp 98.2 F 01/04/18 06:00 Pulse 65 01/04/18 10:00 Resp 20 01/04/18 06:00 BP 94/60 L 01/04/18 06:00 Pulse Ox 99 01/04/18 06:00 - Labs Result Diagrams: 01/04/18 06:30 01/04/18 06:30 Labs: Laboratory Results - last 24 hr 01/03/18 01/03/18 01/03/18 13:15 13:15 13:15 WBC 11.3 H RBC 3.58 Hgb 11.2 L Hct 30.8 L MCV 86.0 MCH 31.3 MCHC 36.4 RDW 12.5 Plt Count 259 MPV 10.8 Gran % 73.0 H Lymph % (Auto) 19.6 L [place] % (Auto) 6.8 H Eos % (Auto) 0.4 L Baso % (Auto) 0.2 Gran # 8.20 H Lymph # (Auto) 2.2 [place] # (Auto) 0.8 H Eos # (Auto) 0.1 Baso # (Auto) 0.02 PT 10.6 INR 0.93 APTT 24.5 L pO2 42 VBG pH 7.42 VBG pCO2 40.0 VBG HCO3 25.9 VBG Total CO2 27.1 VBG O2 Sat (Calc) 83.4 H VBG Base Excess 1.3 VBG Potassium 4.5 Sodium 118.0 L* Chloride 83.0 L Glucose 98 Lactate 1.7 FiO2 21.0 Potassium Carbon Dioxide Anion Gap BUN Creatinine Est GFR ( Amer) Est GFR (Non-Af Amer) Random Glucose Serum Osmolality Calcium Phosphorus Magnesium Total Bilirubin AST ALT Alkaline Phosphatase Total Creatine Kinase Troponin I Total Protein Albumin Globulin Albumin/Globulin Ratio Venous Blood Potassium 4.5 Urine Color Urine Appearance Urine pH Ur Specific [place] Urine Protein Urine Glucose (UA) Urine Ketones Urine Blood Urine Nitrate Urine Bilirubin Urine Urobilinogen Ur Leukocyte Esterase Urine RBC Urine WBC Ur Epithelial Cells Urine Bacteria Urine Osmolality Ur Random Creatinine Ur Random Sodium 01/03/18 01/03/18 01/03/18 13:50 13:50 14:00 WBC RBC Hgb Hct MCV MCH MCHC RDW Plt Count MPV Gran % Lymph % (Auto) [place] % (Auto) Eos % (Auto) Baso % (Auto) Gran # Lymph # (Auto) [place] # (Auto) Eos # (Auto) Baso # (Auto) PT INR APTT pO2 VBG pH VBG pCO2 VBG HCO3 VBG Total CO2 VBG O2 Sat (Calc) VBG Base Excess VBG Potassium Sodium 123 L Chloride 83 L Glucose Lactate FiO2 Potassium 4.7 Carbon Dioxide 24 Anion Gap 21 H BUN 67 H Creatinine 2.5 H Est GFR ( Amer) 23 Est GFR (Non-Af Amer) 19 Random Glucose 99 Serum Osmolality 276 Calcium 10.8 H Phosphorus Magnesium Total Bilirubin 0.5 AST 40 H D ALT 31 Alkaline Phosphatase 74 Total Creatine Kinase 214 Troponin I 0.03 Total Protein 7.6 Albumin 4.4 Globulin 3.3 Albumin/Globulin Ratio 1.3 Venous Blood Potassium Urine Color Yellow Urine Appearance Clear Urine pH 7.5 Ur Specific [place] 1.010 Urine Protein Trace H Urine Glucose (UA) Negative Urine Ketones Negative Urine Blood Small H Urine Nitrate Negative Urine Bilirubin Negative Urine Urobilinogen 0.2 Ur Leukocyte Esterase Small H Urine RBC 5 - 10 Urine WBC 5 - 10 Ur Epithelial Cells 4 - 5 Urine Bacteria Mod Urine Osmolality Ur Random Creatinine Ur Random Sodium 01/03/18 01/03/18 01/03/18 15:58 15:58 23:50 WBC RBC Hgb Hct MCV MCH MCHC RDW Plt Count MPV Gran % Lymph % (Auto) [place] % (Auto) Eos % (Auto) Baso % (Auto) Gran # Lymph # (Auto) [place] # (Auto) Eos # (Auto) Baso # (Auto) PT INR APTT pO2 VBG pH VBG pCO2 VBG HCO3 VBG Total CO2 VBG O2 Sat (Calc) VBG Base Excess VBG Potassium Sodium 128 L Chloride 91 L Glucose Lactate FiO2 Potassium 3.6 Carbon Dioxide 26 Anion Gap 14 BUN 60 H Creatinine 2.1 H Est GFR ( Amer) 28 Est GFR (Non-Af Amer) 23 Random Glucose 115 H Serum Osmolality Calcium 10.3 Phosphorus Magnesium Total Bilirubin AST ALT Alkaline Phosphatase Total Creatine Kinase Troponin I Total Protein Albumin Globulin Albumin/Globulin Ratio Venous Blood Potassium Urine Color Urine Appearance Urine pH Ur Specific [place] Urine Protein Urine Glucose (UA) Urine Ketones Urine Blood Urine Nitrate Urine Bilirubin Urine Urobilinogen Ur Leukocyte Esterase Urine RBC Urine WBC Ur Epithelial Cells Urine Bacteria Urine Osmolality 149 L Ur Random Creatinine 33 Ur Random Sodium 43 01/04/18 01/04/18 06:30 06:30 WBC 5.8 D RBC 2.98 L Hgb 9.3 L Hct 26.2 L MCV 87.9 MCH 31.2 MCHC 35.5 RDW 12.8 Plt Count 226 MPV 10.3 Gran % 51.3 Lymph % (Auto) 39.1 H [place] % (Auto) 7.6 H Eos % (Auto) 1.7 Baso % (Auto) 0.3 Gran # 2.96 Lymph # (Auto) 2.3 [place] # (Auto) 0.4 Eos # (Auto) 0.1 Baso # (Auto) 0.02 PT INR APTT pO2 VBG pH VBG pCO2 VBG HCO3 VBG Total CO2 VBG O2 Sat (Calc) VBG Base Excess VBG Potassium Sodium 130 L Chloride 96 L Glucose Lactate FiO2 Potassium 3.9 Carbon Dioxide 26 Anion Gap 12 BUN 55 H Creatinine 2.0 H Est GFR ( Amer) 29 Est GFR (Non-Af Amer) 24 Random Glucose 83 Serum Osmolality Calcium 9.4 Phosphorus 4.3 Magnesium 2.1 Total Bilirubin 0.4 AST 36 ALT 26 Alkaline Phosphatase 53 Total Creatine Kinase Troponin I Total Protein 5.9 Albumin 3.2 Globulin 2.8 Albumin/Globulin Ratio 1.2 Venous Blood Potassium Urine Color Urine Appearance Urine pH Ur Specific [place] Urine Protein Urine Glucose (UA) Urine Ketones Urine Blood Urine Nitrate Urine Bilirubin Urine Urobilinogen Ur Leukocyte Esterase Urine RBC Urine WBC Ur Epithelial Cells Urine Bacteria Urine Osmolality Ur Random Creatinine Ur Random Sodium Assessment & Plan - Assessment and Plan (Free Text) Assessment: 77 year old female with a past medical history of Rheumatoid Arthritis, hype rtension, and possible dementia who presents for altered metal status that has since resolved and was found to have an LANDRY and hyponatremia. She was given fluids which have been increased as she is fairly hypotensive and dehydrated. We recommend avoid NSAID and any other nephrotoxins. Pateint is currently polyuric with low Urine osmoles, meaning she is not in a CHF exacerbation and can tolerate more fluids. Agree with current management at this time. We will continue to follow with you. Case was reviewed and discussed with attending physician, Dr. Wiseman - Date & Time Date: 01/04/18 Time: 14:36 <Jose Wiseman - Last Filed: 01/05/18 06:13> Meds - Medications Medications: Current Medications Aspirin (Aspirin Chewable) 81 mg PO DAILY [facility] Last Admin: 01/04/18 09:51 Dose: 81 mg Atorvastatin Calcium (Lipitor) 10 mg PO DIN [facility] Last Admin: 01/04/18 17:45 Dose: 10 mg Clopidogrel Bisulfate (Plavix) 75 mg PO DAILY [facility] Last Admin: 01/04/18 09:51 Dose: 75 mg Heparin Sodium (Porcine) (Heparin) 5,000 units SC Q8 [facility]; Protocol Last Admin: 01/05/18 05:22 Dose: 5,000 units Ceftriaxone Sodium (Rocephin 1 Gram Ivpb) 1 gm in 100 mls @ 100 mls/hr IVPB DAILY [facility]; Protocol Last Admin: 01/04/18 09:51 Dose: 100 mls/hr Sodium Chloride (Sodium Chloride 0.9%) 1,000 mls @ 125 mls/hr IV .Q8H [facility] Last Admin: 01/05/18 04:00 Dose: 125 mls/hr Memantine (Namenda) 10 mg PO DAILY [facility] Last Admin: 01/04/18 09:51 Dose: 10 mg Results - Vital Signs Recent Vital Signs: Last Vital Signs Temp 98.0 F 01/04/18 16:57 Pulse 78 01/05/18 02:00 Resp 19 01/04/18 16:57 BP 95/62 L 01/04/18 16:57 Pulse Ox 95 01/04/18 16:57 - Labs Result Diagrams: 01/04/18 06:30 01/04/18 06:30 Labs: Laboratory Results - last 24 hr 01/04/18 01/04/18 06:30 06:30 WBC 5.8 D RBC 2.98 L Hgb 9.3 L Hct 26.2 L MCV 87.9 MCH 31.2 MCHC 35.5 RDW 12.8 Plt Count 226 MPV 10.3 Gran % 51.3 Lymph % (Auto) 39.1 H [place] % (Auto) 7.6 H Eos % (Auto) 1.7 Baso % (Auto) 0.3 Gran # 2.96 Lymph # (Auto) 2.3 [place] # (Auto) 0.4 Eos # (Auto) 0.1 Baso # (Auto) 0.02 Sodium 130 L Potassium 3.9 Chloride 96 L Carbon Dioxide 26 Anion Gap 12 BUN 55 H Creatinine 2.0 H Est GFR ( Amer) 29 Est GFR (Non-Af Amer) 24 Random Glucose 83 Calcium 9.4 Phosphorus 4.3 Magnesium 2.1 Total Bilirubin 0.4 AST 36 ALT 26 Alkaline Phosphatase 53 Total Protein 5.9 Albumin 3.2 Globulin 2.8 Albumin/Globulin Ratio 1.2 Attending/Attestation - Attestation I have personally seen and examined this patient.: Yes I have fully participated in the care of the patient.: Yes I have reviewed all pertinent clinical information: Yes Notes (Text): 77 yo F w/ pmh of htn, RA, mild dementia, presented with AMS and whole body muscle rigidity, nephrology being consulted for hyponatremia and LANDRY; Patient's symptoms resolved at time of encounter; reportedly having increased urinary frequency lately but without dysuria; had some vomiting and diarrhea yesterday; in ED, had sethi placed with 1700 cc urine output; subsequently had become polyuric with hyoptension this morning requiring IVF bolus; UA possibly consistent with UTI and patient started on ceftriaxone while being maintained on IVF; Hyponatremia and renal function improving; likey hypovolemic hyponatremia; LANDRY likely multifactorial with pre-renal and obstructive uropathy component, with obstruction resolved with sethi catheter; pre-renal component due to GI losses while being on diuretics (lasix and hctz, unclear if patient actually has CHF w/ echo report suggestive of diastolic dysfunction) as well as loss of renal autoregulation while being on both GRABIEL inhibitor and NSAID; polyuria currently improving as patient only making 100 cc/hr UO; -Increasing IVF w/ NS at 125 cc/hr -Avoid nephrotoxic agents (NSAIDS, phosphate enema, etc); -Continue to hold BP meds; -Continue ceftriaxone for UTI (no renal dose adjustment needed); -Keep MAP > 65;
--- NOTE | 2018-01-04 12:51 | CP.PCM.PN ---
<Denice Perez - Last Filed: 01/04/18 17:11> Subjective - Date & Time of Evaluation Date of Evaluation: 01/04/18 Time of Evaluation: 10:50 - Subjective Subjective: Patient was seen and examined at bedside. She feels better and does not report any episodes of muscle tightness, dizziness, vomiting from yesterday. She does mention of having bone pain and is concerned about her vitamin d/calcium levels. Overnight, her BP dropped to 78/46, for which 500 ml bolus was given, and BP on recheck was 94/60. Patient otherwise denies of any headaches, fever, chills, chest pain, shortness of breath, palpitations, abdominal pain, n/v/c/d or generalized weakness. Objective - Vital Signs/Intake and Output Vital Signs (last 24 hours): Temp Pulse Resp BP Pulse Ox 98.2 F 65 20 94/60 L 99 01/04/18 06:00 01/04/18 10:00 01/04/18 06:00 01/04/18 06:00 01/04/18 06:00 Intake and Output: 01/04/18 01/04/18 06:59 18:59 Intake Total 1460 Output Total 5150 Balance -3690 - Medications Medications: Current Medications Aspirin (Aspirin Chewable) 81 mg PO DAILY [facility] Last Admin: 01/04/18 09:51 Dose: 81 mg Atorvastatin Calcium (Lipitor) 10 mg PO DIN [facility] Last Admin: 01/03/18 19:04 Dose: 10 mg Clopidogrel Bisulfate (Plavix) 75 mg PO DAILY [facility] Last Admin: 01/04/18 09:51 Dose: 75 mg Heparin Sodium (Porcine) (Heparin) 5,000 units SC Q8 [facility]; Protocol Last Admin: 01/04/18 06:35 Dose: 5,000 units Ceftriaxone Sodium (Rocephin 1 Gram Ivpb) 1 gm in 100 mls @ 100 mls/hr IVPB DAILY [facility]; Protocol Last Admin: 01/04/18 09:51 Dose: 100 mls/hr Sodium Chloride (Sodium Chloride 0.9%) 1,000 mls @ 125 mls/hr IV .Q8H [facility] Last Admin: 01/04/18 12:03 Dose: 125 mls/hr Memantine (Namenda) 10 mg PO DAILY [facility] Last Admin: 01/04/18 09:51 Dose: 10 mg - Labs Labs: 01/04/18 06:30 01/04/18 06:30 PT 10.6 SECONDS (9.4-12.5) 01/03/18 13:15 INR 0.93 01/03/18 13:15 APTT 24.5 Seconds (25.1-36.5) L 01/03/18 13:15 - Constitutional Appears: Non-toxic, No Acute Distress - Head Exam Head Exam: NORMAL INSPECTION, NORMOCEPHALIC - Eye Exam Eye Exam: EOMI, Normal appearance. absent: Nystagmus, Scleral icterus - ENT Exam ENT Exam: Mucous Membranes Dry - Respiratory Exam Respiratory Exam: Clear to Ausculation Bilateral, NORMAL BREATHING PATTERN. absent: Rales, Rhonchi, Wheezes - Cardiovascular Exam Cardiovascular Exam: REGULAR RHYTHM, +S1, +S2 - GI/Abdominal Exam GI & Abdominal Exam: Soft, Normal Bowel Sounds. absent: Distended, Firm, Guarding, Rigid, Tenderness - Extremities Exam Extremities Exam: Normal Inspection. absent: Calf Tenderness, Pedal Edema - Psychiatric Exam Psychiatric exam: Normal Affect, Normal Mood - Skin Skin Exam: Intact, Normal Color Assessment and Plan - Assessment and Plan (Free Text) Assessment: Patient is a 77 year old F with pmh HTN, GERD, RA, Alzheimer's Disease, UTI requiring hospitalization in Mar 2017, [place] speaking [place] [facility]iness followed by episode of muscle clenching in which the patient denies LOC or memory as well as had urinary retention and hyponatremia. Hyponatremia and urinary retention possibly 2/2 to medication interaction vs seizures (unlikely). HOME MEDS 1. folic acid 1 mg 1qd 2. diclofenac gel 3. pantoprazole 40 mg 1qd 4. enalpril 20 mg 1qd 5. amitiza 24 mcg 1qd 6. norvasc 10 mg 1qd 7. hctz 25 1qd 8. baclofen 10 mg 1BID 9. Plavix 75 mg 1qd 10. Memantine 10 mg 1qd 11. Gabapentin 300 mg 1TID 12. Lipitor 10 mg 1qd 13. Calcium 500 mg 1BID 14. Lasix 80 mg 1qd Plan: Hyponatremia Nehpro Consulted- Dr. Wiseman- Pateint is currently polyuric with low Urine osmoles, she is fairly hypotensive and dehydrated. Pt can tolerate more fluids. Hypotension most likely due to over diuresis on medications Na : 130, urine osmolality: 149, urine random creatinine: 33, urine random sodium: 43 Continue with NS 0.9% @ 125 ml/hr and monitor BUN/Creat Hold enalapril 20 mg 1qd, hctz 25 mg 1qd, lasix 80 mg 1qd. Continue with Amlodipine 10 mg 1qd Check BMP tomorrow Urinary retention Secondary to baclofen use vs seizures Discontinue sethi catheter Start voiding trial UTI 01-03-18: U/A small leukocyte esterase Continue on Rocephin 1 gram IV daily Pending urine culture, blood culture afebrile, no leukocytosis, asymptomatic Altered mental status r/o seizures ordered MRI without contrast ordered EEG currently aaox3 with no confusion Alzheimers Disease Memantine 10 mg 1qd HTN Continue on amlodipine 10 mg 1qd. Hold other BP meds in setting of hypotension likely 2/2 overdiuresis with elevated urine output Osteoporosis alendronate 70 mg 1qw Rheumatoid arthritis Avoid diclofenac and other nephrotoxins as per nephro recc. DJD PT/OT consult GERD Omeprazole 20 mg held in setting of urinary retention Ppx DVT ppx- SCDs Medical Managment discussed with Dr. Ledbetter PGY-1 Denice Perez <Alina Ledbetter - Last Filed: 01/06/18 14:47> Objective - Vital Signs/Intake and Output Vital Signs (last 24 hours): Temp Pulse Resp BP Pulse Ox 97.6 F 84 18 154/84 H 99 01/06/18 06:00 01/06/18 12:00 01/06/18 12:00 01/06/18 12:00 01/06/18 00:32 Intake and Output: 01/06/18 01/06/18 06:59 18:59 Intake Total 100 120 Output Total 950 Balance 100 -830 - Medications Medications: Current Medications Alendronate Sodium (Fosamax) 70 mg PO Q7D@0600 [facility] Amlodipine Besylate (Norvasc) 10 mg PO DAILY [facility] Last Admin: 01/06/18 10:24 Dose: 10 mg Aspirin (Aspirin Chewable) 81 mg PO DAILY [facility] Last Admin: 01/06/18 10:25 Dose: 81 mg Atorvastatin Calcium (Lipitor) 10 mg PO DIN [facility] Last Admin: 01/05/18 18:15 Dose: 10 mg Cefpodoxime Proxetil (Vantin) 200 mg PO Q12 [facility] Last Admin: 01/06/18 10:24 Dose: 200 mg Clopidogrel Bisulfate (Plavix) 75 mg PO DAILY [facility] Last Admin: 01/06/18 10:24 Dose: 75 mg Heparin Sodium (Porcine) (Heparin) 5,000 units SC Q8 [facility]; Protocol Last Admin: 01/06/18 14:42 Dose: 5,000 units Hydrochlorothiazide (Hydrodiuril) 25 mg PO DAILY [facility] Last Admin: 01/06/18 12:15 Dose: 25 mg Levetiracetam (Keppra) 500 mg PO Q12 [facility] Last Admin: 01/06/18 12:15 Dose: 500 mg Lorazepam (Ativan) 1 mg IVP Q6H [facility]; Protocol PRN Reason: Seizure activity Memantine (Namenda) 10 mg PO DAILY [facility] Last Admin: 01/06/18 10:24 Dose: 10 mg Potassium Phos/Sodium Phos (Neutra-Phos) 1 pkt PO BID [facility] Last Admin: 01/06/18 10:25 Dose: 1 pkt - Labs Labs: 01/06/18 12:30 01/06/18 12:30 PT 10.6 SECONDS (9.4-12.5) 01/03/18 13:15 INR 0.93 01/03/18 13:15 APTT 24.5 Seconds (25.1-36.5) L 01/03/18 13:15 Attending/Attestation - Attestation I have personally seen and examined this patient.: Yes I have fully participated in the care of the patient.: Yes I have reviewed all pertinent clinical information, including history, physical exam and plan: Yes Notes (Text): 01/06/18 14:46 Medical record note made by the resident after discussion with my direction and input after the patient was personally seen and examined by me. I have reviewed the chart and agree that the record accurately reflects by personal performance of the history, physical exam, data review, and medical decision-making, in the course for the patient. I have also personally directed the plan of care.
[2018-01-05] MEDS: Sodium Chloride 0.9% 1,000 ML IV SCH (04:00)
[2018-01-05 06:09] LABS: BASO # 0.02 K/mm3 (0.0-2.0); BASO % 0.4 % (0.0-3.0); EOS # 0.2 (0.0-0.7); EOS % 3.3 % (1.5-5.0); GRAN # 2.53 (1.4-6.5); GRAN % 44.2 % (50.0-68.0); HEMOGLOBIN 10.9 g/dL (12.0-16.0); LYMPH # 2.5 (1.2-3.4); MEAN CELL VOLUME 90.1 fl (80.0-105.0); MEAN CORPUSCULAR HEMOGLOBIN 30.8 pg (25.0-35.0); MEAN CORPUSCULAR HGB CONC 34.2 g/dl (31.0-37.0); MEAN PLATELET VOLUME 10.4 fl (7.0-11.0); MONO # 0.5 (0.1-0.6); MONO % 8.1 % (1.0-6.0); RBC 3.54 10^6/uL (3.5-6.1); RED CELL DISTRIBUTION WIDTH 13.2 % (11.5-14.5); WHITE BLOOD COUNT 5.7 10^3/ul (4.5-11.0)
[2018-01-05 07:17] LABS: ALB/GLOB RATIO 1.2 (1.1-1.8); ALBUMIN 3.5 g/dL (3.0-4.8); CALCIUM 10.2 mg/dL (8.4-10.5)
[2018-01-05] MEDS: cefTRIAXone 1 gm 1 GM/100 ML BAG IVPB SCH (09:05)
--- NOTE | 2018-01-05 09:08 | MRI ---
Date of service: 01/04/2018 PROCEDURE: MRI BRAIN WITHOUT CONTRAST HISTORY: R/O stroke COMPARISON: None available. TECHNIQUE: Multiplanar, multisequence MR images of the brain were obtained without intravenous contrast enhancement. FINDINGS: HEMORRHAGE: None DWI: No evidence of an acute or early subacute infarction. BRAIN PARENCHYMA: No mass effect or edema. Mild atrophy. VENTRICLES: Unremarkable. No hydrocephalus. CRANIUM: Unremarkable. ORBITS: Grossly unremarkable. PARANASAL SINUSES/MASTOIDS: Clear VASCULAR SYSTEM: Skull base flow voids intact. OTHER FINDINGS: The report concurs with the preliminary report IMPRESSION: No acute intracranial findings
--- NOTE | 2018-01-05 09:38 | CP.PCM.PN ---
<Ryan Lundberg - Last Filed: 01/05/18 15:15> Subjective - Date & Time of Evaluation Date of Evaluation: 01/05/18 Time of Evaluation: 09:38 - Subjective Subjective: Ryan Lundberg DO, PGY-2: Nephrology Progress Note for Dr. Wiseman Patient was seen and examined at bedside. Nurse reports patient needed Sethi re- inserted secondary to urinary retention. Patient denies any fever, chills, nausea, vomiting, or dyspnea. No adverse events noted overnight. Objective - Vital Signs/Intake and Output Vital Signs (last 24 hours): Temp Pulse Resp BP Pulse Ox 98.0 F 68 17 115/68 100 01/05/18 06:00 01/05/18 06:00 01/05/18 06:00 01/05/18 06:00 01/05/18 06:00 Intake and Output: 01/05/18 01/05/18 06:59 18:59 Intake Total 1980 Output Total 1800 Balance 180 - Medications Medications: Current Medications Aspirin (Aspirin Chewable) 81 mg PO DAILY [facility] Last Admin: 01/05/18 09:05 Dose: 81 mg Atorvastatin Calcium (Lipitor) 10 mg PO DIN [facility] Last Admin: 01/04/18 17:45 Dose: 10 mg Clopidogrel Bisulfate (Plavix) 75 mg PO DAILY [facility] Last Admin: 01/05/18 09:05 Dose: 75 mg Heparin Sodium (Porcine) (Heparin) 5,000 units SC Q8 [facility]; Protocol Last Admin: 01/05/18 05:22 Dose: 5,000 units Ceftriaxone Sodium (Rocephin 1 Gram Ivpb) 1 gm in 100 mls @ 100 mls/hr IVPB DAILY [facility]; Protocol Last Admin: 01/05/18 09:05 Dose: 100 mls/hr Sodium Chloride (Sodium Chloride 0.9%) 1,000 mls @ 125 mls/hr IV .Q8H [facility] Last Admin: 01/05/18 04:00 Dose: 125 mls/hr Memantine (Namenda) 10 mg PO DAILY [facility] Last Admin: 01/05/18 09:05 Dose: 10 mg - Labs Labs: 01/05/18 05:30 01/05/18 05:30 PT 10.6 SECONDS (9.4-12.5) 01/03/18 13:15 INR 0.93 01/03/18 13:15 APTT 24.5 Seconds (25.1-36.5) L 01/03/18 13:15 - Constitutional Appears: Well, Non-toxic - Head Exam Head Exam: ATRAUMATIC, NORMOCEPHALIC - Eye Exam Eye Exam: EOMI, Normal appearance - ENT Exam ENT Exam: Mucous Membranes Moist - Neck Exam Neck Exam: Normal Inspection - Respiratory Exam Respiratory Exam: Clear to Ausculation Bilateral, NORMAL BREATHING PATTERN. absent: Accessory Muscle Use - Cardiovascular Exam Cardiovascular Exam: RRR, +S1, +S2 - GI/Abdominal Exam GI & Abdominal Exam: Soft, Normal Bowel Sounds - Extremities Exam Extremities Exam: Normal Inspection. absent: Calf Tenderness - Neurological Exam Neurological Exam: Alert, Awake - Psychiatric Exam Psychiatric exam: Normal Affect, Normal Mood - Skin Skin Exam: Dry, Intact, Normal Color, Warm Assessment and Plan - Assessment and Plan (Free Text) Assessment: 77 year old female with a past medical history of Rheumatoid Arthritis, hypertension, and possible dementia who presents for altered metal status that has since resolved and was found to have an LANDRY and hyponatremia. We recommend avoid NSAID and any other nephrotoxins. FENa is greater than 1% indicating ATN. Agree with current management at this time, consider Bethanechol for urinary retention. We will continue to follow with you. Case was reviewed and discussed with attending physician, Dr. Wiseman <Jose Wiseman - Last Filed: 01/06/18 02:15> Objective - Vital Signs/Intake and Output Vital Signs (last 24 hours): Temp Pulse Resp BP Pulse Ox 97.5 F L 100 H 20 148/84 99 01/06/18 00:32 01/06/18 01:45 01/06/18 00:32 01/06/18 00:32 01/06/18 00:32 - Medications Medications: Current Medications Alendronate Sodium (Fosamax) 70 mg PO Q7D@0600 [facility] Aspirin (Aspirin Chewable) 81 mg PO DAILY [facility] Last Admin: 01/05/18 09:05 Dose: 81 mg Atorvastatin Calcium (Lipitor) 10 mg PO DIN [facility] Last Admin: 01/05/18 18:15 Dose: 10 mg Cefpodoxime Proxetil (Vantin) 200 mg PO Q12 [facility] Clopidogrel Bisulfate (Plavix) 75 mg PO DAILY [facility] Last Admin: 01/05/18 09:05 Dose: 75 mg Heparin Sodium (Porcine) (Heparin) 5,000 units SC Q8 [facility]; Protocol Last Admin: 01/05/18 23:57 Dose: 5,000 units Lorazepam (Ativan) 1 mg IVP Q6H [facility]; Protocol PRN Reason: Seizure activity Memantine (Namenda) 10 mg PO DAILY [facility] Last Admin: 01/05/18 09:05 Dose: 10 mg - Labs Labs: 01/05/18 22:07 01/05/18 22:07 PT 10.6 SECONDS (9.4-12.5) 01/03/18 13:15 INR 0.93 01/03/18 13:15 APTT 24.5 Seconds (25.1-36.5) L 01/03/18 13:15 Attending/Attestation - Attestation I have personally seen and examined this patient.: Yes I have fully participated in the care of the patient.: Yes I have reviewed all pertinent clinical information, including history, physical exam and plan: Yes Notes (Text): Patient seen and examined; I agree with the resident's note as above with the following additions/edits: 77 yo F w/ pmh of htn, RA, mild dementia, presented with AMS and whole body muscle rigidity, nephrology consulted for hyponatremia and LANDRY; LANDRY and hyponatremia both resolving with intravascular volume expansion; pre- renal LANDRY along with component of obstructive nephropathy 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
--- NOTE | 2018-01-05 11:09 | CP.PCM.CON ---
<Lizeth Morales - Last Filed: 01/05/18 15:44> History of Present Illness - History of Present Illness History of Present Illness: Lizeth Morales, PGY2, Neurology Consult Note for Dr Hercules: Reason for consult: seizure like activity, EEG done at 6 PM yesterday 77 year old Portuguese speaking female with PMH HTN, GERD, RA, Alzheimer's Disease, UTI requiring hospitalization in Mar 2017 presents to [facility] for dizziness, inability to talk in the morning of admission (on Monday). At the time of my exam, patient cannot recall as to why she is in the hospital. As per daughter, patient was at home with a assisted living home director. She then had a bilious vomiting episode, then started shaking movements of her entire body, on and off for 1-2 hours, patient could not talk, woke up confused (and has not been the same as her baseline after that). No fevers, sob, cough, neck pain, diaphoresis, abdominal pain, leg swelling. At baseline, daughter states that patient sometimes confuses between her daughters' names, has a homemaker to help her with chores (like bathing, cooking). However, at baseline, she is oriented to self, situation, place, and time. Since the above mentioned episode, daughter states that her mo ther is "not the same." In ED, Head CT and MRI brain negative. Patient found to have positive UA, currently being treated with rocephin. An EEG was obtained, which showed normal results. 12 point ROS obtained and negative, except as per HPI. PMHx: HTN, GERD, RA, Alzheimer's Disease, UTI requiring hospitalization in Mar 2017 PSHx: R knee, hysterectomy, appendectomy, bladder Allergies: Iodine Family Hx: DM in family Social hx: Lives with daughter. Denies smoking and alcohol use. PCP: Dr. Roche Review of Systems - Review of Systems Systems not reviewed;Unavailable: Dementia, Altered Mental Status Past Patient History - Infectious Disease Hx of Infectious Diseases: None - Past Medical History & Family History Past Medical History?: Yes - Past Social History Smoking Status: Never Smoked - CARDIAC Hx Hypertension: Yes - PULMONARY Hx Respiratory Disorders: No - NEUROLOGICAL Hx Alzheimer's Disease: Yes - HEENT Hx Cataracts: Yes (sx ou) - RENAL Hx Chronic Kidney Disease: No - ENDOCRINE/METABOLIC Hx Endocrine Disorders: No - HEMATOLOGICAL/ONCOLOGICAL Hx Blood Disorders: No - INTEGUMENTARY Hx Dermatological Problems: No - MUSCULOSKELETAL/RHEUMATOLOGICAL Hx Arthritis: Yes Hx Osteoporosis: Yes Hx Rheumatoid Arthritis: Yes - GASTROINTESTINAL Hx Gastrointestinal Disorders: No - GENITOURINARY/GYNECOLOGICAL Hx Genitourinary Disorders: No - PSYCHIATRIC Hx Psychophysiologic Disorder: No Hx Substance Use: No - SURGICAL HISTORY Hx Appendectomy: Yes - ANESTHESIA Hx Anesthesia: Yes Hx Anesthesia Reactions: No Hx Malignant Hyperthermia: No Meds Allergies/Adverse Reactions: Allergies Allergy/AdvReac Type Severity Reaction Status Date / Time Iodinated Contrast- Oral and Allergy RASH Verified 10/07/15 14:42 IV Dye [Iodinated Contrast Media - IV Dye] iodine AdvReac SWELLING Verified 10/28/16 13:41 - Medications Medications: Current Medications Aspirin (Aspirin Chewable) 81 mg PO DAILY [facility] Last Admin: 01/05/18 09:05 Dose: 81 mg Atorvastatin Calcium (Lipitor) 10 mg PO DIN [facility] Last Admin: 01/04/18 17:45 Dose: 10 mg Clopidogrel Bisulfate (Plavix) 75 mg PO DAILY [facility] Last Admin: 01/05/18 09:05 Dose: 75 mg Heparin Sodium (Porcine) (Heparin) 5,000 units SC Q8 [facility]; Protocol Last Admin: 01/05/18 05:22 Dose: 5,000 units Ceftriaxone Sodium (Rocephin 1 Gram Ivpb) 1 gm in 100 mls @ 100 mls/hr IVPB DAILY [facility]; Protocol Last Admin: 01/05/18 09:05 Dose: 100 mls/hr Memantine (Namenda) 10 mg PO DAILY [facility] Last Admin: 01/05/18 09:05 Dose: 10 mg Physical Exam - Constitutional Appears: Non-toxic, No Acute Distress - Head Exam Head Exam: ATRAUMATIC, NORMOCEPHALIC - Eye Exam Eye Exam: EOMI, PERRL. absent: Conjunctival injection, Nystagmus, Scleral icterus Pupil Exam: NORMAL ACCOMODATION, PERRL. absent: Fixed, Irregular, Miosis, Unequal - ENT Exam ENT Exam: Mucous Membranes Moist - Neck Exam Neck exam: Positive for: Full Rom - Respiratory Exam Respiratory Exam: Clear to Auscultation Bilateral, NORMAL BREATHING PATTERN. absent: Accessory Muscle Use, Rhonchi, Wheezes, Stridor - Cardiovascular Exam Cardiovascular Exam: +S1, +S2. absent: Systolic Murmur - GI/Abdominal Exam GI & Abdominal Exam: Normal Bowel Sounds, Soft. absent: Firm, Guarding, Rebound, Rigid, Tenderness - Extremities Exam Extremities exam: Positive for: calf tenderness. Negative for: pedal edema - Back Exam Back exam: NORMAL INSPECTION - Neurological Exam Neurological exam: Alert, CN II-XII Intact, Reflexes Normal Additional comments: oriented to self and place only. Uses a walker, unsteady - Psychiatric Exam Psychiatric exam: Normal Affect - Skin Skin Exam: Normal Color, Warm Results - Vital Signs Recent Vital Signs: Last Vital Signs Temp 98.0 F 01/05/18 06:00 Pulse 68 01/05/18 06:00 Resp 17 01/05/18 06:00 BP 115/68 01/05/18 06:00 Pulse Ox 100 01/05/18 06:00 - Labs Result Diagrams: 01/05/18 05:30 01/05/18 05:30 Labs: Laboratory Results - last 24 hr 01/05/18 01/05/18 05:30 05:30 WBC 5.7 RBC 3.54 Hgb 10.9 L Hct 31.9 L MCV 90.1 MCH 30.8 MCHC 34.2 RDW 13.2 Plt Count 260 MPV 10.4 Gran % 44.2 L Lymph % (Auto) 44.0 H [place] % (Auto) 8.1 H Eos % (Auto) 3.3 Baso % (Auto) 0.4 Gran # 2.53 Lymph # (Auto) 2.5 [place] # (Auto) 0.5 Eos # (Auto) 0.2 Baso # (Auto) 0.02 Sodium 138 Potassium 4.4 Chloride 106 Carbon Dioxide 25 Anion Gap 11 BUN 38 H Creatinine 1.3 H Est GFR ( Amer) 48 Est GFR (Non-Af Amer) 40 Random Glucose 87 Calcium 10.2 Phosphorus 2.9 Magnesium 2.0 Total Bilirubin 0.3 AST 36 ALT 25 Alkaline Phosphatase 58 Total Protein 6.5 Albumin 3.5 Globulin 3.0 Albumin/Globulin Ratio 1.2 Assessment & Plan - Assessment and Plan (Free Text) Assessment: 77 year old female with PMH HTN, GERD, RA, Alzheimer's Disease, UTI requiring hospitalization in Mar 2017 presents for seizure like episode 2/2 likely hyponatremia. Patient also treated for UTI, LANDRY, urinary retention. Neurology consulted for management of seizures: - Head CT and MRI brain negative. - EEG shows normal brain activity. - treat underlying UTI, LANDRY - Will not recommend anti-epileptic meds as hyponatremia is likely a cause of se izure. - Monitor Discussed case with Dr Hercules. <Yosi Hercules - Last Filed: 01/06/18 11:56> Meds - Medications Medications: Current Medications Alendronate Sodium (Fosamax) 70 mg PO Q7D@0600 [facility] Amlodipine Besylate (Norvasc) 10 mg PO DAILY [facility] Last Admin: 01/06/18 10:24 Dose: 10 mg Aspirin (Aspirin Chewable) 81 mg PO DAILY [facility] Last Admin: 01/06/18 10:25 Dose: 81 mg Atorvastatin Calcium (Lipitor) 10 mg PO DIN [facility] Last Admin: 01/05/18 18:15 Dose: 10 mg Cefpodoxime Proxetil (Vantin) 200 mg PO Q12 [facility] Last Admin: 01/06/18 10:24 Dose: 200 mg Clopidogrel Bisulfate (Plavix) 75 mg PO DAILY [facility] Last Admin: 01/06/18 10:24 Dose: 75 mg Heparin Sodium (Porcine) (Heparin) 5,000 units SC Q8 [facility]; Protocol Last Admin: 01/06/18 05:17 Dose: 5,000 units Levetiracetam (Keppra) 500 mg PO BID [facility] Lorazepam (Ativan) 1 mg IVP Q6H PRN; Protocol PRN Reason: Seizure activity Memantine (Namenda) 10 mg PO DAILY [facility] Last Admin: 01/06/18 10:24 Dose: 10 mg Potassium Phos/Sodium Phos (Neutra-Phos) 1 pkt PO BID [facility] Last Admin: 01/06/18 10:25 Dose: 1 pkt Results - Vital Signs Recent Vital Signs: Last Vital Signs Temp 97.6 F 01/06/18 06:00 Pulse 99 H 01/06/18 06:00 Resp 20 01/06/18 06:00 BP 143/82 01/06/18 10:24 Pulse Ox 99 01/06/18 00:32 - Labs Result Diagrams: 01/05/18 22:07 01/05/18 22:07 Labs: Laboratory Results - last 24 hr 01/05/18 01/05/18 01/05/18 05:30 21:49 22:07 WBC 7.5 D RBC 3.54 Hgb 10.9 L Hct 32.2 L MCV 91.0 MCH 30.8 MCHC 33.9 RDW 13.4 Plt Count 259 MPV 9.9 Gran % 57.3 Lymph % (Auto) 31.3 [place] % (Auto) 10.0 H Eos % (Auto) 1.1 L Baso % (Auto) 0.3 Gran # 4.28 Lymph # (Auto) 2.3 [place] # (Auto) 0.8 H Eos # (Auto) 0.1 Baso # (Auto) 0.02 pCO2 pO2 HCO3 ABG pH ABG Total CO2 ABG O2 Saturation ABG Base Excess ABG Potassium Glucose Lactate FiO2 Sodium Potassium Chloride Carbon Dioxide Anion Gap BUN Creatinine Est GFR ( Amer) Est GFR (Non-Af Amer) POC Glucose (mg/dL) 137 H Random Glucose Calcium Phosphorus Magnesium Total Bilirubin AST ALT Alkaline Phosphatase Lactate Dehydrogenase Total Creatine Kinase Troponin I NT-Pro-B Natriuret Pep Total Protein Albumin Globulin Albumin/Globulin Ratio 25-OH Vitamin D Total 50.1 Arterial Blood Potassium 01/05/18 01/05/18 22:07 22:10 WBC RBC Hgb Hct MCV MCH MCHC RDW Plt Count MPV Gran % Lymph % (Auto) [place] % (Auto) Eos % (Auto) Baso % (Auto) Gran # Lymph # (Auto) [place] # (Auto) Eos # (Auto) Baso # (Auto) pCO2 34 L pO2 121.0 H HCO3 22.1 ABG pH 7.42 ABG Total CO2 23.1 ABG O2 Saturation 98.6 H ABG Base Excess -1.7 ABG Potassium 4.2 Glucose 125 H Lactate 0.9 FiO2 28.0 Sodium 137 137.0 Potassium 4.4 Chloride 107 110.0 H Carbon Dioxide 22 Anion Gap 12 BUN 23 H Creatinine 1.0 Est GFR ( Amer) > 60 Est GFR (Non-Af Amer) 54 POC Glucose (mg/dL) Random Glucose 125 H Calcium 9.8 Phosphorus 2.3 L Magnesium 1.7 Total Bilirubin 0.2 AST 35 ALT 20 Alkaline Phosphatase 62 Lactate Dehydrogenase 415 Total Creatine Kinase 48 Troponin I 0.05 D NT-Pro-B Natriuret Pep 2230 H Total Protein 6.9 Albumin 3.7 Globulin 3.2 Albumin/Globulin Ratio 1.2 25-OH Vitamin D Total Arterial Blood Potassium 4.2 Attending/Attestation - Attestation I have personally seen and examined this patient.: Yes I have fully participated in the care of the patient.: Yes I have reviewed all pertinent clinical information: Yes Notes (Text): 01/06/18 11:55 I agree with the assessment and plan. The seizure-like activity is likely due to hyponatremia, infection and antibiotics. I recommend treatment of the underlying cause. Will hold off on starting an AED at this time. Neurology will follow.
--- NOTE | 2018-01-05 11:55 | PCM.EEG ---
Electroencephalogram Report - Electroencephalogram Report Procedure Date: 01/04/18 Interpretation: 77 y/o woman with episodes of dizziness. Technical Information: This was a 21 -channel EEG, 1-channel EKG routine EEG performed using an Digital Lumens machine. Electrodes were applied using the 10/20 international placement system. EEG Detail: During active states, the EEG contained symmetric 10-20 Hz,20-30 uV activity seen bi-frontally. . During resting wakefulness there was a symmetric posterior dominant rhythm at 8.5-9.5 Hz, 30-50 uV, which was reactive to eye opening and closing. . Drowsiness was associated with fragmentation of the posterior dominant rhythm and with slow roving eye movements. Hyperventilation was not performed. Photic stimulation was performed and there were no changes on the record. Focal abnormality; none. ECG was associated with a normal sinus rhythm. Impression: This is a normal awake and drowsy electroencephalogram.
--- NOTE | 2018-01-05 15:28 | CP.PCM.PN ---
<Denice Mandel - Last Filed: 01/05/18 15:20> Subjective - Date & Time of Evaluation Date of Evaluation: 01/05/18 Time of Evaluation: 11:00 - Subjective Subjective: PGY-1 Medicine Progress Note for Dr. Ledbetter's service Patient was seen and examined at bedside. Patient offers no acute complaints. Voiding trial was performed yesterday but repeat bladder scan of 502 necessitated reinsertion of sethi. Patient denies of any headaches, fever, chills, chest pain, shortness of breath, palpitations, abd pain, suprapubic pain, n/v/c/d, weakness. Objective - Vital Signs/Intake and Output Vital Signs (last 24 hours): Temp Pulse Resp BP Pulse Ox 98.0 F 68 17 115/68 100 01/05/18 06:00 01/05/18 06:00 01/05/18 06:00 01/05/18 06:00 01/05/18 06:00 Intake and Output: 01/05/18 01/05/18 06:59 18:59 Intake Total 1980 Output Total 1800 Balance 180 - Medications Medications: Current Medications Aspirin (Aspirin Chewable) 81 mg PO DAILY [facility] Last Admin: 01/05/18 09:05 Dose: 81 mg Atorvastatin Calcium (Lipitor) 10 mg PO DIN [facility] Last Admin: 01/04/18 17:45 Dose: 10 mg Cefpodoxime Proxetil (Vantin) 200 mg PO Q12 [facility] Clopidogrel Bisulfate (Plavix) 75 mg PO DAILY [facility] Last Admin: 01/05/18 09:05 Dose: 75 mg Heparin Sodium (Porcine) (Heparin) 5,000 units SC Q8 [facility]; Protocol Last Admin: 01/05/18 15:11 Dose: 5,000 units Memantine (Namenda) 10 mg PO DAILY [facility] Last Admin: 01/05/18 09:05 Dose: 10 mg - Labs Labs: 01/05/18 05:30 01/05/18 05:30 PT 10.6 SECONDS (9.4-12.5) 01/03/18 13:15 INR 0.93 01/03/18 13:15 APTT 24.5 Seconds (25.1-36.5) L 01/03/18 13:15 - Constitutional Appears: Non-toxic, No Acute Distress - Head Exam Head Exam: NORMAL INSPECTION, NORMOCEPHALIC - Eye Exam Eye Exam: EOMI, Normal appearance. absent: Nystagmus, Scleral icterus - ENT Exam ENT Exam: Mucous Membranes Moist - Respiratory Exam Respiratory Exam: Clear to Ausculation Bilateral, NORMAL BREATHING PATTERN. absent: Rales, Rhonchi, Wheezes - Cardiovascular Exam Cardiovascular Exam: REGULAR RHYTHM, +S1, +S2 - GI/Abdominal Exam GI & Abdominal Exam: Soft, Normal Bowel Sounds. absent: Distended, Firm, Guarding, Tenderness - Extremities Exam Extremities Exam: Normal Inspection. absent: Calf Tenderness, Pedal Edema - Neurological Exam Neurological Exam: Alert, Awake, Oriented x3 - Psychiatric Exam Psychiatric exam: Normal Affect, Normal Mood - Skin Skin Exam: Intact, Normal Color Assessment and Plan - Assessment and Plan (Free Text) Assessment: Patient is a 77 year old F with pmh HTN, GERD, RA, Alzheimer's Disease, UTI requiring hospitalization in Mar 2017, citizen of [place] speaking only presented to [facility] ED with dizziness followed by episode of muscle clenching in which the patient denies LOC or memory as well as had urinary retention and hyponatremia. Hyponatremia and urinary retention possibly 2/2 to over diuresis on home medications. Urology consulted for urinary retention. Plan: Hyponatremia Urology consult-Dr. Smith- recommendations appreciated Hypotension most likely due to over diuresis on medications Hold enalapril 20 mg 1qd, hctz 25 mg 1qd, lasix 80 mg 1qd. Continue with Amlodipine 10 mg 1qd Fluids DC'ed as LANDRY and hyponatremia improved Check BMP tomorrow Urinary retention 2/2 to possible medication interaction Patient failed voiding trial yesterday UTI 01-03-18: U/A small leukocyte esterase DC'ed Rocephin; Vantin will be started on 01-06 Urine culture of urine cath: no growth, blood culture: no growth day 2 afebrile, no leukocytosis, asymptomatic Altered mental status 2/2 to hyponatremia Neuro consulted: Dr. Santoyo-CT and MRI brain negative. EEG shows normal brain acti vity. Patient hyponatremic on admission, corrected now, as possible cause. MRI without contrast to r/o stroke: no acute intracranial findings EEG to r/o seizure: normal wake and drowsy electroencephalogram currently aaox3 with no confusion Alzheimers Disease Memantine 10 mg 1qd HTN Continue on amlodipine 10 mg 1qd. Hold other BP meds in setting of hypotension likely 2/2 overdiuresis with elevated urine output Osteoporosis alendronate 70 mg 1qw Rheumatoid arthritis May restart diclofenac dependent on nephro recs DJD PT/OT consult- recommendations appreciated GERD Omeprazole 20 mg held in setting of urinary retention Ppx DVT ppx- Heparin 5000 units sc q8h Medical Management discussed with Dr. Ledbetter PGY-1 Denice Mandel <Alina Ledbetter - Last Filed: 01/06/18 14:46> Objective - Vital Signs/Intake and Output Vital Signs (last 24 hours): Temp Pulse Resp BP Pulse Ox 97.6 F 84 18 154/84 H 99 01/06/18 06:00 01/06/18 12:00 01/06/18 12:00 01/06/18 12:00 01/06/18 00:32 Intake and Output: 01/06/18 01/06/18 06:59 18:59 Intake Total 100 120 Output Total 950 Balance 100 -830 - Medications Medications: Current Medications Alendronate Sodium (Fosamax) 70 mg PO Q7D@0600 [facility] Amlodipine Besylate (Norvasc) 10 mg PO DAILY [facility] Last Admin: 01/06/18 10:24 Dose: 10 mg Aspirin (Aspirin Chewable) 81 mg PO DAILY [facility] Last Admin: 01/06/18 10:25 Dose: 81 mg Atorvastatin Calcium (Lipitor) 10 mg PO DIN [facility] Last Admin: 01/05/18 18:15 Dose: 10 mg Cefpodoxime Proxetil (Vantin) 200 mg PO Q12 [facility] Last Admin: 01/06/18 10:24 Dose: 200 mg Clopidogrel Bisulfate (Plavix) 75 mg PO DAILY [facility] Last Admin: 01/06/18 10:24 Dose: 75 mg Heparin Sodium (Porcine) (Heparin) 5,000 units SC Q8 [facility]; Protocol Last Admin: 01/06/18 14:42 Dose: 5,000 units Hydrochlorothiazide (Hydrodiuril) 25 mg PO DAILY [facility] Last Admin: 01/06/18 12:15 Dose: 25 mg Levetiracetam (Keppra) 500 mg PO Q12 [facility] Last Admin: 01/06/18 12:15 Dose: 500 mg Lorazepam (Ativan) 1 mg IVP Q6H PRN; Protocol PRN Reason: Seizure activity Memantine (Namenda) 10 mg PO DAILY [facility] Last Admin: 01/06/18 10:24 Dose: 10 mg Potassium Phos/Sodium Phos (Neutra-Phos) 1 pkt PO BID [facility] Last Admin: 01/06/18 10:25 Dose: 1 pkt - Labs Labs: 01/06/18 12:30 01/06/18 12:30 PT 10.6 SECONDS (9.4-12.5) 01/03/18 13:15 INR 0.93 01/03/18 13:15 APTT 24.5 Seconds (25.1-36.5) L 01/03/18 13:15 Attending/Attestation - Attestation I have personally seen and examined this patient.: Yes I have fully participated in the care of the patient.: Yes I have reviewed all pertinent clinical information, including history, physical exam and plan: Yes Notes (Text): 01/06/18 14:46 Medical record note made by the resident after discussion with my direction and input after the patient was personally seen and examined by me. I have reviewed the chart and agree that the record accurately reflects by personal performance of the history, physical exam, data review, and medical decision-making, in the course for the patient. I have also personally directed the plan of care. 77 yrs old female with PMH HTN, GERD, RA?, Alzheimer's dementia, recurrent UTI , diastolic CHF was admitted with dizziness and Presyncope followed by episode of muscle clenching in which the patient denies Loss of consciousness and has full memory .Patient was found to have acute renal failure, hyponatremia due to over diuresis which is resolved with IV hydration . CT scan of head and MRI of Brain is negative for acute stroke. Urinary Retention likely due to Baclofen and Flexeril, SP Folley catheter, Urology evaluation is requested. Management plan was discussed in detail with patient daughter over the phone. Education was provided.
[2018-01-05] MEDS ORDERED: Naloxone 0.4 mg/ml Inj (Adult) IVP ONE (21:59)
[2018-01-05 22:11] LABS: BASO # 0.02 K/mm3 (0.0-2.0); BASO % 0.3 % (0.0-3.0); EOS # 0.1 (0.0-0.7); EOS % 1.1 % (1.5-5.0); GRAN # 4.28 (1.4-6.5); GRAN % 57.3 % (50.0-68.0); HEMOGLOBIN 10.9 g/dL (12.0-16.0); LYMPH # 2.3 (1.2-3.4); LYMPH % 31.3 % (22.0-35.0); MEAN CORPUSCULAR HEMOGLOBIN 30.8 pg (25.0-35.0); MEAN CORPUSCULAR HGB CONC 33.9 g/dl (31.0-37.0); MEAN PLATELET VOLUME 9.9 fl (7.0-11.0); MONO # 0.8 (0.1-0.6); RBC 3.54 10^6/uL (3.5-6.1); RED CELL DISTRIBUTION WIDTH 13.4 % (11.5-14.5); WHITE BLOOD COUNT 7.5 10^3/ul (4.5-11.0)
[2018-01-05 22:13] LABS: ARTERIAL BLOOD GAS HCO3 22.1 mmol/L (21-28); ARTERIAL BLOOD GAS O2 SAT 98.6 % (95-98); ARTERIAL BLOOD GAS PCO2 34 mm/Hg (35-45); ARTERIAL BLOOD GAS PH 7.42 (7.35-7.45); ARTERIAL BLOOD GAS TCO2 23.1 mmol.L (22-28)
[2018-01-05] MEDS ORDERED: Iohexol 350 MG/100 ML VIAL ONE (22:19)
[2018-01-05] MEDS ORDERED: levETIRAcetam 1000mg/100ml NS 100 ML IV ONE (22:27)
[2018-01-05 22:31] LABS: B-TYPE NATRIURETIC PEPTIDE 2230 pg/mL (0-450); TROPONIN I 0.05 ng/mL
[2018-01-05 22:36] LABS: ALB/GLOB RATIO 1.2 (1.1-1.8); ALBUMIN 3.7 g/dL (3.0-4.8); ALT/SGPT 20 U/L (7-56); AST/SGOT 35 U/L (14-36); BLOOD UREA NITROGEN 23 mg/dL (7-21); CALCIUM 9.8 mg/dL (8.4-10.5); GFR NON-AFRICAN AMERICAN 54
--- NOTE | 2018-01-05 22:42 | PCM.RRT ---
RETAIL WIRELESS SALES REPRESENTATIVE Nurse Assessment - Situation Date: 01/05/18 Time RETAIL WIRELESS SALES REPRESENTATIVE was called: 21:50 RETAIL WIRELESS SALES REPRESENTATIVE Location:: [address] [place] [address] Room Number: 362-1 RETAIL WIRELESS SALES REPRESENTATIVE Reason for Call: Change in Mental Status RETAIL WIRELESS SALES REPRESENTATIVE Called By: RN - IV IV Inserted during RETAIL WIRELESS SALES REPRESENTATIVE?: Yes - Respiratory Oxygen Delivery Method: Nasal Cannula @L/min Received Nebulizer Treatments:: No Was the Patient Ventilated with Bag/Mask 100% O2?: No Secretions Suctioned?: No Was the Patient Intubated?: No Was the Patient Placed on a Ventilator?: No - Medication Medications Administered During RETAIL WIRELESS SALES REPRESENTATIVE: 2mg ativan. narcan 0.4mg - Diagnostic Test Ordered CT Scan: Yes - Stat Labs Ordered RETAIL WIRELESS SALES REPRESENTATIVE Stat Labs Ordered: CBC, BMP, TROPONIN, LACTIC ACID, ABG RETAIL WIRELESS SALES REPRESENTATIVE Other Labs Ordered: prolactin, UDS CPR started during RETAIL WIRELESS SALES REPRESENTATIVE?: No - [place] Coma Scale Coma Scale Eye Opening: No response Coma Scale Motor: None Coma Scale Verbal: No response - Recommendations 5) RETAIL WIRELESS SALES REPRESENTATIVE Level of Care Recommendations: Transfer to Telemetry Notifications: Attending Physician, Consultations I.Reason for RETAIL WIRELESS SALES REPRESENTATIVE - A) Acute Change in Patient: (Select all that apply): Acute change in mental status - Head Head Exam: ATRAUMATIC, NORMOCEPHALIC - Respiratory Exam Respiratory Exam: Clear to Ausculation Bilateral, NORMAL BREATHING PATTERN. absent: Accessory Muscle Use - Cardiovascular Exam Cardiovascular Exam: RRR - Neurological Exam Neurological Exam: Altered Plan - Assessment of Findings&Treatment Plan Hola Buckley PGY1 RETAIL WIRELESS SALES REPRESENTATIVE for Dr Yazmin Venegas Atonic Seizure, [place] Rapid response called at 9:50 by RN. Pt was unresponsive, eyes rolling, resistant to opening of eyes, pupils dilated, pt unresponsive to sternal rub, verbal stimulus, atonic without visible tonic clonic movement. Pt was given 0.4mg narcan, a code stroke was called, 2mg ativan given while pt in CT scan, pt given 1g Keppra. CT head: preliminary negative for acute bleed, chronic malformation CTA head/ neck- unable to perform, because current IV access is 22 gauge. Will order Midline for tomorrow. Neurologist consulted via phone Pt seen, examined, assessment and plan discussed with Dr Yazmin Venegas
--- NOTE | 2018-01-06 09:59 | CT ---
Date of service: 01/05/2018 PROCEDURE: CT HEAD WITHOUT CONTRAST. HISTORY: ams COMPARISON: 01/03/2018 TECHNIQUE: Axial computed tomography images were obtained through the head/brain without intravenous contrast. Radiation dose: Total exam DLP = 1341 mGy-cm. This CT exam was performed using one or more of the following dose reduction techniques: Automated exposure control, adjustment of the mA and/or kV according to patient size, and/or use of iterative reconstruction technique. FINDINGS: HEMORRHAGE: No intracranial hemorrhage. BRAIN: No mass effect or edema. Chronic microvascular changes and mild atrophy VENTRICLES: Unremarkable. No hydrocephalus. CALVARIUM: Unremarkable. PARANASAL SINUSES: Unremarkable as visualized. No significant inflammatory changes. MASTOID AIR CELLS: Unremarkable as visualized. No inflammatory changes. OTHER FINDINGS: The report concurs with the preliminary report IMPRESSION: No acute intracranial findings
[2018-01-06] MEDS: Cefpodoxime (Vantin) 200 mg Tab PO SCH ×2 (10:24→21:25)
[2018-01-06] MEDS: Potassium & Sodium Phosphate PO SCH ×3 (10:25→18:32)
--- NOTE | 2018-01-06 10:38 | CARD ---
APPROVED REPORT Date of service: 01/05/2018 EKG Measurement Heart [id number] ME [id number] <Conclusion> Sinus tachycardia with premature atrial complexes Otherwise normal ECG
--- NOTE | 2018-01-06 11:26 | CP.PCM.PN ---
<Denice Perez - Last Filed: 01/06/18 11:18> Subjective - Date & Time of Evaluation Date of Evaluation: 01/06/18 Time of Evaluation: 10:20 - Subjective Subjective: PGY-1 Medicine Progress note for Dr. Ledbetter's service Patient seen and examined at bedside. Per night team patient had an episode of seizure like activity for which CT head was done and Ativan was administered. Patient today seems to be at baseline status, AAOx3, answering appropriately to questions. Patient states she does not remember events that led her from being home to being in the hospital. Possibly due to change in setting. Objective - Vital Signs/Intake and Output Vital Signs (last 24 hours): Temp Pulse Resp BP Pulse Ox 97.6 F 99 H 20 143/82 99 01/06/18 06:00 01/06/18 06:00 01/06/18 06:00 01/06/18 10:24 01/06/18 00:32 Intake and Output: 01/06/18 01/06/18 06:59 18:59 Intake Total 100 120 Output Total 950 Balance 100 -830 - Medications Medications: Current Medications Alendronate Sodium (Fosamax) 70 mg PO Q7D@0600 [facility] Amlodipine Besylate (Norvasc) 10 mg PO DAILY [facility] Last Admin: 01/06/18 10:24 Dose: 10 mg Aspirin (Aspirin Chewable) 81 mg PO DAILY [facility] Last Admin: 01/06/18 10:25 Dose: 81 mg Atorvastatin Calcium (Lipitor) 10 mg PO DIN [facility] Last Admin: 01/05/18 18:15 Dose: 10 mg Cefpodoxime Proxetil (Vantin) 200 mg PO Q12 [facility] Last Admin: 01/06/18 10:24 Dose: 200 mg Clopidogrel Bisulfate (Plavix) 75 mg PO DAILY [facility] Last Admin: 01/06/18 10:24 Dose: 75 mg Heparin Sodium (Porcine) (Heparin) 5,000 units SC Q8 [facility]; Protocol Last Admin: 01/06/18 05:17 Dose: 5,000 units Lorazepam (Ativan) 1 mg IVP Q6H PRN; Protocol PRN Reason: Seizure activity Memantine (Namenda) 10 mg PO DAILY [facility] Last Admin: 01/06/18 10:24 Dose: 10 mg Potassium Phos/Sodium Phos (Neutra-Phos) 1 pkt PO BID [facility] Last Admin: 01/06/18 10:25 Dose: 1 pkt - Labs Labs: 01/05/18 22:07 01/05/18 22:07 PT 10.6 SECONDS (9.4-12.5) 01/03/18 13:15 INR 0.93 01/03/18 13:15 APTT 24.5 Seconds (25.1-36.5) L 01/03/18 13:15 - Constitutional Appears: Non-toxic, No Acute Distress - Head Exam Head Exam: NORMAL INSPECTION, NORMOCEPHALIC - Eye Exam Eye Exam: EOMI, Normal appearance. absent: Nystagmus, Scleral icterus - Respiratory Exam Respiratory Exam: Clear to Ausculation Bilateral, NORMAL BREATHING PATTERN. absent: Rales, Rhonchi, Wheezes - Cardiovascular Exam Cardiovascular Exam: REGULAR RHYTHM, +S1, +S2 - GI/Abdominal Exam GI & Abdominal Exam: Soft, Normal Bowel Sounds. absent: Tenderness - Exam Additional comments: sethi in place - Extremities Exam Extremities Exam: Normal Inspection. absent: Calf Tenderness, Pedal Edema - Neurological Exam Neurological Exam: Alert, Awake, Oriented x3 - Psychiatric Exam Psychiatric exam: Normal Affect, Normal Mood - Skin Skin Exam: Intact, Normal Color Assessment and Plan - Assessment and Plan (Free Text) Assessment: Patient is a 77 year old F with pmh HTN, GERD, RA, Alzheimer's Disease, UTI requiring hospitalization in Mar 2017, [place] speaking only presented to [facility] with dizziness followed by episode of muscle clenching in which the patient denies LOC or memory as well as had urinary retention and hyponatremia. Hyponatremia and urinary retention possibly 2/2 to over diuresis on home medications. Urology consulted for urinary retention. Seizure like activity noted over night for which a rapid response was called. Plan: Urinary Retention Urology consult-Dr. Smith- recommendations appreciated Hold enalapril 20 mg qd, hctz 25 mg qd, lasix 80 mg qd. Continue with Amlodipine 10 mg 1qd, Restart HCTZ 25mg Urinary retention 2/2 to possible medication interaction Patient failed voiding trial yesterday Seizures Neuro Consulted- Dr. Santoyo- rec appreciated 01/05/18 CT head- no acute intracranial abnormalities 01/04/18 Brain MRI- no acute intracranial abnormalities Keppra 1000mg 1x dose; Keppra 500mg bid UTI 10-3-: U/A small leukocyte esterase Vantin po Urine culture of urine cath: no growth, blood culture: no growth day 2 afebrile, no leukocytosis, asymptomatic Altered mental status 2/2 to hyponatremia Likely baseline for patient Hyponatremia resolved Alzheimers Disease Memantine 10 mg 1qd HTN Continue on amlodipine 10 mg po daily. HCTZ 25mg po daily Enalapril 20mg po daily, Lasix 80mg po daily held due to low BP during admission; May restart if BP elevated Osteoporosis alendronate 70 mg 1qw Rheumatoid arthritis May restart diclofenac dependent on nephro recs DJD Accepted to TCU starting 01/06 or when medically clear GERD Omeprazole 20 mg held in setting of urinary retention Ppx DVT ppx- Heparin 5000 units sc q8h Medical Management discussed with Dr. Ledbetter PGY-1 Denice Perez <Alina Ledbetter - Last Filed: 01/06/18 14:39> Objective - Vital Signs/Intake and Output Vital Signs (last 24 hours): Temp Pulse Resp BP Pulse Ox 97.6 F 84 18 154/84 H 99 01/06/18 06:00 01/06/18 12:00 01/06/18 12:00 01/06/18 12:00 01/06/18 00:32 Intake and Output: 01/06/18 01/06/18 06:59 18:59 Intake Total 100 120 Output Total 950 Balance 100 -830 - Medications Medications: Current Medications Alendronate Sodium (Fosamax) 70 mg PO Q7D@0600 [facility] Amlodipine Besylate (Norvasc) 10 mg PO DAILY [facility] Last Admin: 01/06/18 10:24 Dose: 10 mg Aspirin (Aspirin Chewable) 81 mg PO DAILY [facility] Last Admin: 01/06/18 10:25 Dose: 81 mg Atorvastatin Calcium (Lipitor) 10 mg PO DIN [facility] Last Admin: 01/05/18 18:15 Dose: 10 mg Cefpodoxime Proxetil (Vantin) 200 mg PO Q12 [facility] Last Admin: 01/06/18 10:24 Dose: 200 mg Clopidogrel Bisulfate (Plavix) 75 mg PO DAILY [facility] Last Admin: 01/06/18 10:24 Dose: 75 mg Heparin Sodium (Porcine) (Heparin) 5,000 units SC Q8 [facility]; Protocol Last Admin: 01/06/18 05:17 Dose: 5,000 units Hydrochlorothiazide (Hydrodiuril) 25 mg PO DAILY [facility] Last Admin: 01/06/18 12:15 Dose: 25 mg Levetiracetam (Keppra) 500 mg PO Q12 [facility] Last Admin: 01/06/18 12:15 Dose: 500 mg Lorazepam (Ativan) 1 mg IVP Q6H PRN; Protocol PRN Reason: Seizure activity Memantine (Namenda) 10 mg PO DAILY [facility] Last Admin: 01/06/18 10:24 Dose: 10 mg Potassium Phos/Sodium Phos (Neutra-Phos) 1 pkt PO BID [facility] Last Admin: 01/06/18 10:25 Dose: 1 pkt - Labs Labs: 01/06/18 12:30 01/06/18 12:30 PT 10.6 SECONDS (9.4-12.5) 01/03/18 13:15 INR 0.93 01/03/18 13:15 APTT 24.5 Seconds (25.1-36.5) L 01/03/18 13:15 Attending/Attestation - Attestation I have personally seen and examined this patient.: Yes I have fully participated in the care of the patient.: Yes I have reviewed all pertinent clinical information, including history, physical exam and plan: Yes Notes (Text): 01/06/18 14:33 Medical record note made by the resident after discussion with my direction and input after the patient was personally seen and examined by me. I have reviewed the chart and agree that the record accurately reflects by personal performance of the history, physical exam, data review, and medical decision-making, in the course for the patient. I have also personally directed the plan of care. 77 yrs old female with PMH HTN, GERD, RA?, Alzheimer's dementia, recurrent UTI , diastolic CHF was admitted with dizziness and Presyncope followed by episode of muscle clenching in which the patient denies Loss of consciousness and has full memory .Patient was found to have acute renal failure, hyponatremia due to over diuresis which is resolved with IV hydration . CT scan of head and MRI of Brain is negative for acute stroke. Last night patient was found to be confused, Rapid response was called for possible seizure.CT scan of head was negative.Patient has been started on Keppra.We will follow up Neurology recommendation. Urinary Retention likely due to Baclofen and Flexeril, SP Folley catheter, Urology evaluation is requested. Management plan was discussed in detail with patient daughter over the phone. . Education was provided.
[2018-01-06 12:55] LABS: BASO # 0.02 K/mm3 (0.0-2.0); BASO % 0.3 % (0.0-3.0); EOS # 0.1 (0.0-0.7); EOS % 1.7 % (1.5-5.0); GRAN # 5.03 (1.4-6.5); HEMOGLOBIN 11.7 g/dL (12.0-16.0); LYMPH # 2.2 (1.2-3.4); LYMPH % 28.6 % (22.0-35.0); MEAN CELL VOLUME 91.7 fl (80.0-105.0); MEAN CORPUSCULAR HEMOGLOBIN 31.2 pg (25.0-35.0); MEAN PLATELET VOLUME 9.8 fl (7.0-11.0); MONO # 0.4 (0.1-0.6); MONO % 5.4 % (1.0-6.0); RBC 3.75 10^6/uL (3.5-6.1); RED CELL DISTRIBUTION WIDTH 13.4 % (11.5-14.5); WHITE BLOOD COUNT 7.8 10^3/ul (4.5-11.0)
[2018-01-06 13:09] LABS: PROLACTIN 40.5 ng/mL (3.0-18.9)
[2018-01-06 13:15] LABS: TROPONIN I 0.09 ng/mL
[2018-01-06 13:17] LABS: ALB/GLOB RATIO 1.2 (1.1-1.8); ALBUMIN 4.2 g/dL (3.0-4.8); ALT/SGPT 20 U/L (7-56); AST/SGOT 29 U/L (14-36); BLOOD UREA NITROGEN 17 mg/dL (7-21); CALCIUM 10.9 mg/dL (8.4-10.5); GFR NON-AFRICAN AMERICAN > 60
[2018-01-06 18:32] VITALS: O2SAT 100
--- NOTE | 2018-01-07 06:25 | CP.PCM.PN ---
Objective - Vital Signs/Intake and Output Vital Signs (last 24 hours): Temp Pulse Resp BP Pulse Ox 98.9 F 79 20 122/68 100 01/07/18 00:00 01/07/18 02:00 01/07/18 00:00 01/07/18 00:00 01/07/18 00:00 Intake and Output: 01/06/18 01/07/18 18:59 06:59 Intake Total 1500 240 Output Total 2500 475 Balance -1000 -235 - Medications Medications: Current Medications Alendronate Sodium (Fosamax) 70 mg PO Q7D@0600 [facility] Amlodipine Besylate (Norvasc) 10 mg PO DAILY [facility] Last Admin: 01/06/18 10:24 Dose: 10 mg Aspirin (Aspirin Chewable) 81 mg PO DAILY [facility] Last Admin: 01/06/18 10:25 Dose: 81 mg Atorvastatin Calcium (Lipitor) 10 mg PO DIN [facility] Last Admin: 01/06/18 18:31 Dose: Not Given Cefpodoxime Proxetil (Vantin) 200 mg PO Q12 [facility] Last Admin: 01/06/18 21:25 Dose: 200 mg Clopidogrel Bisulfate (Plavix) 75 mg PO DAILY [facility] Last Admin: 01/06/18 10:24 Dose: 75 mg Heparin Sodium (Porcine) (Heparin) 5,000 units SC Q8 [facility]; Protocol Last Admin: 01/07/18 05:07 Dose: 5,000 units Hydrochlorothiazide (Hydrodiuril) 25 mg PO DAILY [facility] Last Admin: 01/06/18 12:15 Dose: 25 mg Levetiracetam (Keppra) 500 mg PO Q12 [facility] Last Admin: 01/06/18 21:25 Dose: 500 mg Lorazepam (Ativan) 1 mg IVP Q6H PRN; Protocol PRN Reason: Seizure activity Last Admin: 01/06/18 22:19 Dose: 1 mg Memantine (Namenda) 10 mg PO DAILY [facility] Last Admin: 01/06/18 10:24 Dose: 10 mg Potassium Phos/Sodium Phos (Neutra-Phos) 1 pkt PO BID [facility] Last Admin: 01/06/18 18:32 Dose: Not Given - Labs Labs: 01/06/18 12:30 01/06/18 12:30 PT 10.6 SECONDS (9.4-12.5) 01/03/18 13:15 INR 0.93 01/03/18 13:15 APTT 24.5 Seconds (25.1-36.5) L 01/03/18 13:15
[2018-01-07 08:09] LABS: BASO # 0.02 K/mm3 (0.0-2.0); BASO % 0.3 % (0.0-3.0); EOS # 0.3 (0.0-0.7); EOS % 4.6 % (1.5-5.0); GRAN # 3.76 (1.4-6.5); GRAN % 51.2 % (50.0-68.0); HEMOGLOBIN 9.9 g/dL (12.0-16.0); LYMPH # 2.8 (1.2-3.4); LYMPH % 38.2 % (22.0-35.0); MEAN CELL VOLUME 91.2 fl (80.0-105.0); MEAN CORPUSCULAR HEMOGLOBIN 31.1 pg (25.0-35.0); MEAN CORPUSCULAR HGB CONC 34.1 g/dl (31.0-37.0); MONO # 0.4 (0.1-0.6); MONO % 5.7 % (1.0-6.0); RBC 3.18 10^6/uL (3.5-6.1); RED CELL DISTRIBUTION WIDTH 13.4 % (11.5-14.5); WHITE BLOOD COUNT 7.4 10^3/ul (4.5-11.0)
[2018-01-07 09:01] LABS: ALB/GLOB RATIO 1.2 (1.1-1.8); ALBUMIN 3.4 g/dL (3.0-4.8); CALCIUM 10.6 mg/dL (8.4-10.5)
[2018-01-07] MEDS: Potassium & Sodium Phosphate PO SCH ×2 (09:54→18:11)
[2018-01-07] MEDS: Cefpodoxime (Vantin) 200 mg Tab PO SCH (09:55)
--- NOTE | 2018-01-07 17:30 | CP.PCM.DIS ---
Provider - Provider Date of Admission: 01/03/18 15:07 Attending physician: Alina Ledbetter MD Primary care physician: Dr. Roche Consults: Dr. Hercules- neurology Dr. Wiseman- nephrology Dr. Smith- urology Time Spent in preparation of Discharge (in minutes): 45 Hospital Course - Lab Results Lab Results: Micro Results 01/03/18 14:30 Blood Blood Culture - Preliminary NO GROWTH AFTER 4 DAYS 01/03/18 13:15 Blood Blood Culture - Preliminary NO GROWTH AFTER 4 DAYS 01/03/18 14:00 Urine,Catheterized Urine Culture - Final No Growth (<1,000 CFU/ML) Most Recent Lab Values WBC 7.4 10^3/ul (4.5-11.0) 01/07/18 07:00 RBC 3.18 10^6/uL (3.5-6.1) L 01/07/18 07:00 Hgb 9.9 g/dL (12.0-16.0) L 01/07/18 07:00 Hct 29.0 % (36.0-48.0) L 01/07/18 07:00 MCV 91.2 fl (80.0-105.0) 01/07/18 07:00 MCH 31.1 pg (25.0-35.0) 01/07/18 07:00 MCHC 34.1 g/dl (31.0-37.0) 01/07/18 07:00 RDW 13.4 % (11.5-14.5) 01/07/18 07:00 Plt Count 263 10^3/uL (120.0-450.0) 01/07/18 07:00 MPV 10.0 fl (7.0-11.0) 01/07/18 07:00 Gran % 51.2 % (50.0-68.0) 01/07/18 07:00 Lymph % (Auto) 38.2 % (22.0-35.0) H 01/07/18 07:00 [place] % (Auto) 5.7 % (1.0-6.0) 01/07/18 07:00 Eos % (Auto) 4.6 % (1.5-5.0) 01/07/18 07:00 Baso % (Auto) 0.3 % (0.0-3.0) 01/07/18 07:00 Gran # 3.76 (1.4-6.5) 01/07/18 07:00 Lymph # (Auto) 2.8 (1.2-3.4) 01/07/18 07:00 [place] # (Auto) 0.4 (0.1-0.6) 01/07/18 07:00 Eos # (Auto) 0.3 (0.0-0.7) 01/07/18 07:00 Baso # (Auto) 0.02 K/mm3 (0.0-2.0) 01/07/18 07:00 PT 10.6 SECONDS (9.4-12.5) 01/03/18 13:15 INR 0.93 01/03/18 13:15 APTT 24.5 Seconds (25.1-36.5) L 01/03/18 13:15 pCO2 34 mm/Hg (35-45) L 01/05/18 22:10 pO2 121.0 mm/Hg (80-100) H 01/05/18 22:10 HCO3 22.1 mmol/L (21-28) 01/05/18 22:10 ABG pH 7.42 (7.35-7.45) 01/05/18 22:10 ABG Total CO2 23.1 mmol.L (22-28) 01/05/18 22:10 ABG O2 Saturation 98.6 % (95-98) H 01/05/18 22:10 ABG Base Excess -1.7 mmol/L (-2.0-3.0) 01/05/18 22:10 ABG Potassium 4.2 mmol/L (3.6-5.2) 01/05/18 22:10 VBG pH 7.42 (7.32-7.43) 01/03/18 13:15 VBG pCO2 40.0 (40-60) 01/03/18 13:15 VBG HCO3 25.9 mmol/l (21-28) 01/03/18 13:15 VBG Total CO2 27.1 mmol.L (22-28) 01/03/18 13:15 VBG O2 Sat (Calc) 83.4 % (40-65) H 01/03/18 13:15 VBG Base Excess 1.3 mmol/L (0.0-2.0) 01/03/18 13:15 VBG Potassium 4.5 mmol/L (3.6-5.2) 01/03/18 13:15 Sodium 137.0 mmol/L (132-148) 01/05/18 22:10 Chloride 110.0 mmol/L (98-107) H 01/05/18 22:10 Glucose 125 mg/dl (65-105) H 01/05/18 22:10 Lactate 0.9 mmol/L (0.7-2.1) 01/05/18 22:10 FiO2 28.0 % 01/05/18 22:10 Sodium 137 mmol/L (132-148) 01/07/18 07:00 Potassium 4.4 mmol/L (3.6-5.0) 01/07/18 07:00 Chloride 106 mmol/L (98-107) 01/07/18 07:00 Carbon Dioxide 24 mmol/L (21-33) 01/07/18 07:00 Anion Gap 11 (10-20) 01/07/18 07:00 BUN 15 mg/dL (7-21) 01/07/18 07:00 Creatinine 1.1 mg/dl (0.7-1.2) 01/07/18 07:00 Est GFR ( Amer) 58 01/07/18 07:00 Est GFR (Non-Af Amer) 48 01/07/18 07:00 POC Glucose (mg/dL) 137 mg/dL (65-110) H 01/05/18 21:49 Random Glucose 80 mg/dL (70-110) 01/07/18 07:00 Serum Osmolality 276 mosm/kg (272-300) 01/03/18 13:50 Calcium 10.6 mg/dL (8.4-10.5) H 01/07/18 07:00 Phosphorus 3.1 mg/dL (2.5-4.5) 01/07/18 07:00 Magnesium 1.5 mg/dL (1.7-2.2) L 01/07/18 07:00 Total Bilirubin 0.3 mg/dL (0.2-1.3) 01/07/18 07:00 AST 30 U/L (14-36) 01/07/18 07:00 ALT 23 U/L (7-56) 01/07/18 07:00 Alkaline Phosphatase 55 U/L (38-126) 01/07/18 07:00 Lactate Dehydrogenase 512 U/L (333-699) 01/06/18 12:30 Total Creatine Kinase 56 U/L (35-230) 01/06/18 12:30 Troponin I 0.09 ng/mL D 01/06/18 12:30 NT-Pro-B Natriuret Pep 2230 pg/mL (0-450) H 01/05/18 22:07 Total Protein 6.2 g/dL (5.8-8.3) 01/07/18 07:00 Albumin 3.4 g/dL (3.0-4.8) 01/07/18 07:00 Globulin 2.9 gm/dL 01/07/18 07:00 Albumin/Globulin Ratio 1.2 (1.1-1.8) 01/07/18 07:00 25-OH Vitamin D Total 50.1 NG/ML (30.0-100.0) 01/05/18 05:30 Prolactin 40.5 ng/mL (3.0-18.9) H 01/05/18 22:07 Arterial Blood Potassium 4.2 mmol/L (3.6-5.2) 01/05/18 22:10 Venous Blood Potassium 4.5 mmol/L (3.6-5.2) 01/03/18 13:15 Urine Color Yellow (YELLOW) 01/03/18 14:00 Urine Appearance Clear (CLEAR) 01/03/18 14:00 Urine pH 7.5 (4.7-8.0) 01/03/18 14:00 Ur Specific [place] 1.010 (1.005-1.035) 01/03/18 14:00 Urine Protein Trace mg/dL (<30 mg/dL) H 01/03/18 14:00 Urine Glucose (UA) Negative mg/dL (NEGATIVE) 01/03/18 14:00 Urine Ketones Negative mg/dL (NEGATIVE) 01/03/18 14:00 Urine Blood Small (NEGATIVE) H 01/03/18 14:00 Urine Nitrate Negative (NEGATIVE) 01/03/18 14:00 Urine Bilirubin Negative (NEGATIVE) 01/03/18 14:00 Urine Urobilinogen 0.2 E.U./dL (<1 E.U./dL) 01/03/18 14:00 Ur Leukocyte Esterase Small [place]/uL (NEGATIVE) H 01/03/18 14:00 Urine RBC 5 - 10 /hpf (0-2) 01/03/18 14:00 Urine WBC 5 - 10 /hpf (0-6) 01/03/18 14:00 Ur Epithelial Cells 4 - 5 /hpf (0-5) 01/03/18 14:00 Urine Bacteria Mod (NEG) 01/03/18 14:00 Urine Osmolality 149 mosm/kg (300-1000) L 01/03/18 15:58 Ur Random Creatinine 33 mg/dL 01/03/18 15:58 Ur Random Sodium 43 meq/L 01/03/18 15:58 - Hospital Course Hospital Course: Upon Admission 77 y/o F with PMHx of Alzheimer's Disease, HTN, RA, GERD who is czech speaking only presents to ED after experiencing generalized muscle tightness and inability to talk. Symptoms lasted for about 3 hours and resolved on their own. Patient is accompanied by her daughters. Per daughter,patient was at home when she became dizzy and fell onto her bed earlier this AM. Patient states that she had whole body muscle rigidity and had clenched jaws. She was not able to communicate with her daughters. Patient denies LOC and was aware of her surroundings. She was able to talk and her muscles relaxed while she was in the ED. upon interview patient had resolved to baseline was alert orientedx4 able to subtract by sevens and handles her own grocery shopping and finances at home and was able to communicate this. CT head was ordered in ED and was negative. In the ED, a catheter was inserted and 1700cc of urine was voided. Patient denies abdominal pain dysuria, pain with urination, fevers, and chills. She states she did void this morning and felt that she emptied her bladder completely. Patient did experience 2 episodes of nonbloody vomiting this morning prior to this episode but denies any diarrhea or changes in bowel habits. Patient denies headache, CP, SOB, abdominal pain, sore throat, weakness, numbness, vision loss, hearing loss. Hospital Course Patient is a Divehi speaking only presented to [facility] ED with dizziness followed by episode of muscle clenching in which the patient denies LOC or memory as well as had urinary retention and hyponatremia. Hyponatremia and urinary retention possibly 2/2 to over diuresis on home medications. Urology consulted for urinary retention. Patient is being continued on a voiding trial until further evaluation by urology. Seizure like activity noted over night for which a rapid response was called. Neurology consulted for which patient was started on Keppra and should be continued as per Dr. Hercules. Discharge Plan Patient is stable for discharge to TCU for further rehabilitation. Patient currently undergoing voiding trial will be continued in TCU. Baclofen and Lasix have been held due to urinary retention and hyponatremia/LANDRY. Patient should follow up with Dr. Roche for further recommendations and medication adjustments . Patient understands the plan as above and agrees. Discharge Exam - Head Exam Head Exam: NORMAL INSPECTION, NORMOCEPHALIC - Eye Exam Eye Exam: EOMI, Normal appearance - ENT Exam ENT Exam: Mucous Membranes Moist - Respiratory Exam Respiratory Exam: NORMAL BREATHING PATTERN. absent: Rales, Rhonchi, Wheezes - Cardiovascular Exam Cardiovascular Exam: REGULAR RHYTHM, +S1, +S2 - GI/Abdominal Exam GI & Abdominal Exam: Normal Bowel Sounds, Soft. absent: Distended, Firm, Guarding - Back Exam Back exam: NORMAL INSPECTION - Neurological Exam Neurological exam: Alert, Oriented x3 - Psychiatric Exam Psychiatric exam: Normal Affect, Normal Mood - Skin Skin Exam: Intact, Normal Color Discharge Plan - Follow Up Plan Condition: STABLE Disposition: REHAB FACILITY/REHAB UNIT Additional Instructions: 1. Patient is stable for transfer to TCU as per Dr. Ledbetter for rehabilitation. 2. Patient will continue all of her home medications except the following: Lasix 80mg daily and Baclofen in the setting of hyponatremia/LANDRY and urinary retention respectively. Patient will be transferred to TCU with sethi in place as we are attempting a voiding trial currently. An attempt is currently underway with sethi catheter clamped however patient has expressed no interest in urinating as of so far. 3. Patient upon discharge of TCU will followup with Dr. Roche for any further recommendations or medication adjustments. 4. Patient is made aware of the plan and agrees. 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
[2018-01-07 20:28] VITALS: BP 110/70; PULSE 78; RESP 18; TEMP 98.7
== END 2018-01-07 20:26 | DRG 683 ==
LOC: ED 12:36 → ERH 15:07 → 3RNO 19:16 → 2RNO 01-05 23:09
PROVIDERS: ADMIT Internal Medicine; ATTEND Internal Medicine
DX: N17.9 Acute kidney failure, unspecified (principal); E87.1 Hypo-osmolality and hyponatremia; N39.0 Urinary tract infection, site not specified; I50.30 Unspecified diastolic (congestive) heart failure; I11.0 Hypertensive heart disease with heart failure; E86.0 Dehydration; I10 Essential (primary) hypertension; G30.9 Alzheimer's disease, unspecified; F02.80 Dementia in other diseases classified elsewhere, unspecified severity, without behavioral disturbance, psychotic disturbance, mood disturbance, and anxiety; K21.9 Gastro-esophageal reflux disease without esophagitis; M06.9 Rheumatoid arthritis, unspecified; M81.0 Age-related osteoporosis without current pathological fracture; I95.9 Hypotension, unspecified; N13.9 Obstructive and reflux uropathy, unspecified; M19.90 Unspecified osteoarthritis, unspecified site; Z83.3 Family history of diabetes mellitus

== ENCOUNTER 2018-01-07 20:28 | Inpatient (IN) | payer OTHER, MEDICAID ==
[2018-01-07] MEDS: Cefpodoxime (Vantin) 200 mg Tab PO SCH (21:56)
[2018-01-08 08:04] LABS: BASO # 0.02 K/mm3 (0.0-2.0); BASO % 0.3 % (0.0-3.0); EOS # 0.3 (0.0-0.7); EOS % 4.7 % (1.5-5.0); GRAN # 2.95 (1.4-6.5); GRAN % 46.5 % (50.0-68.0); HEMOGLOBIN 9.8 g/dL (12.0-16.0); LYMPH # 2.7 (1.2-3.4); LYMPH % 41.7 % (22.0-35.0); MEAN CELL VOLUME 91.4 fl (80.0-105.0); MEAN CORPUSCULAR HEMOGLOBIN 30.2 pg (25.0-35.0); MEAN CORPUSCULAR HGB CONC 33.1 g/dl (31.0-37.0); MEAN PLATELET VOLUME 9.5 fl (7.0-11.0); MONO # 0.4 (0.1-0.6); MONO % 6.8 % (1.0-6.0); RBC 3.24 10^6/uL (3.5-6.1); RED CELL DISTRIBUTION WIDTH 13.2 % (11.5-14.5); WHITE BLOOD COUNT 6.4 10^3/ul (4.5-11.0)
[2018-01-08 08:26] LABS: ALB/GLOB RATIO 1.2 (1.1-1.8); ALBUMIN 3.6 g/dL (3.0-4.8); CALCIUM 10.5 mg/dL (8.4-10.5)
[2018-01-08] MEDS: Potassium & Sodium Phosphate PO SCH ×2 (10:03→17:07)
[2018-01-08] MEDS: Cefpodoxime (Vantin) 200 mg Tab PO SCH ×2 (10:04→21:05)
[2018-01-08] MEDS ORDERED: Magnesium Oxide 400 mg Tab UD PO STA (10:23)
--- NOTE | 2018-01-08 19:04 | CP.PCM.HP ---
History of Present Illness - History of Present Illness History of Present Illness: Hola Buckley PGY1 History and Physical for Dr Torrez Pt is a 77 yo female with PMH of Alzheimer's Disease, HTN, RA, GERD who presents to ED after experiencing generalized muscle tightness and inability to talk. Symptoms lasted for about 3 hours and resolved on their own. Patient is accompanied by her daughters. Patient states that she had whole body muscle rigidity and had clenched jaws. She was not able to communicate with her osito ghters. Patient denies LOC and was aware of her surroundings. She was able to talk and her muscles relaxed while she was in the ED. Pt was discharged and admitted to the TCU. PMHx: HTN, GERD, RA, Alzheimer's Disease, UTI requiring hospitalization in Mar 2017 PSHx: R knee, hysterectomy, appendectomy, bladder Allergies: Iodine Family Hx: DM in family Social hx: Lives with daughter. Denies smoking and alcohol use. PCP: Dr. Roche Present on Admission - Present on Admission Any Indicators Present on Admission: No Review of Systems - Review of Systems Review of Systems: a 12 point ROS was obtained and added to the HPI where appropriate Past Patient History - Infectious Disease Hx of Infectious Diseases: None - Past Medical History & Family History Past Medical History?: Yes - Past Social History Smoking Status: Never Smoked - CARDIAC Hx Hypertension: Yes - PULMONARY Hx Respiratory Disorders: No - NEUROLOGICAL Hx Alzheimer's Disease: Yes - HEENT Hx Cataracts: Yes (sx ou) - RENAL Hx Chronic Kidney Disease: No - ENDOCRINE/METABOLIC Hx Endocrine Disorders: No - HEMATOLOGICAL/ONCOLOGICAL Hx Blood Disorders: No - INTEGUMENTARY Hx Dermatological Problems: No - MUSCULOSKELETAL/RHEUMATOLOGICAL Hx Rheumatoid Arthritis: Yes - GASTROINTESTINAL Hx Gastrointestinal Disorders: No - GENITOURINARY/GYNECOLOGICAL Hx Reproductive Disorders: No - PSYCHIATRIC Hx Psychophysiologic Disorder: No Hx Substance Use: No - SURGICAL HISTORY Hx Appendectomy: Yes - ANESTHESIA Hx Anesthesia: Yes Hx Anesthesia Reactions: No Hx Malignant Hyperthermia: No Meds Allergies/Adverse Reactions: Allergies Allergy/AdvReac Type Severity Reaction Status Date / Time Iodinated Contrast- Oral and Allergy RASH Verified 10/07/15 14:42 IV Dye [Iodinated Contrast Media - IV Dye] iodine AdvReac SWELLING Verified 10/28/16 13:41 Physical Exam - Head Exam Head Exam: ATRAUMATIC, NORMOCEPHALIC - ENT Exam ENT Exam: Mucous Membranes Moist - Respiratory Exam Respiratory Exam: Clear to Auscultation Bilateral, NORMAL BREATHING PATTERN - Cardiovascular Exam Cardiovascular Exam: REGULAR RHYTHM - GI/Abdominal Exam GI & Abdominal Exam: Normal Bowel Sounds Results - Vital Signs Recent Vital Signs: Last Vital Signs Temp 98.1 F 01/08/18 16:00 Pulse 76 01/08/18 16:00 Resp 18 01/08/18 16:00 BP 120/59 L 01/08/18 16:00 Pulse Ox 99 01/08/18 16:00 - Labs Result Diagrams: 01/08/18 07:40 01/08/18 07:40 Labs: Laboratory Results - last 24 hr 01/08/18 01/08/18 07:40 07:40 WBC 6.4 RBC 3.24 L Hgb 9.8 L Hct 29.6 L MCV 91.4 MCH 30.2 MCHC 33.1 RDW 13.2 Plt Count 257 MPV 9.5 Gran % 46.5 L Lymph % (Auto) 41.7 H [place] % (Auto) 6.8 H Eos % (Auto) 4.7 Baso % (Auto) 0.3 Gran # 2.95 Lymph # (Auto) 2.7 [place] # (Auto) 0.4 Eos # (Auto) 0.3 Baso # (Auto) 0.02 Sodium 136 Potassium 4.6 Chloride 104 Carbon Dioxide 26 Anion Gap 11 BUN 17 Creatinine 1.1 Est GFR ( Amer) 58 Est GFR (Non-Af Amer) 48 Random Glucose 83 Calcium 10.5 Phosphorus 3.9 Magnesium 1.5 L Total Bilirubin 0.5 AST 29 ALT 22 Alkaline Phosphatase 57 Total Protein 6.5 Albumin 3.6 Globulin 3.0 Albumin/Globulin Ratio 1.2 Assessment & Plan - Assessment and Plan (Free Text) Assessment: Patient is a 77 year old F with pmh HTN, GERD, RA, Alzheimer's Disease, UTI requiring hospitalization in Mar 2017, indonesian speaking only presented to [facility] ED with dizziness followed by episode of muscle clenching in which the patient denies LOC or memory as well as had urinary retention and hyponatremia. Hyponatremia and urinary retention possibly 2/2 to over diuresis on home medications. Urology consulted for urinary retention. Seizure like activity noted over night for which a rapid response was called. Plan: Urinary Retention - Hold enalapril 20 mg qd, hctz 25 mg qd, lasix 80 mg qd. - Continue with Amlodipine 10 mg 1qd, Restart HCTZ 25mg - Urinary retention 2/2 to possible medication interaction - repeat voiding trial - Urology consult-Dr. Smith Seizures - 01/05/18 CT head- no acute intracranial abnormalities - 01/04/18 Brain MRI- no acute intracranial abnormalities - Keppra 1000mg 1x dose; Keppra 500mg bid - Neuro Consulted- Dr. Santoyo- reccs appreciated UTI - Vantin po - Urine culture of urine cath: no growth, blood culture: NGTD Altered mental status 2/2 to hyponatremia - Likely baseline for patient Alzheimers Disease - Memantine 10 mg 1qd HTN - Amlodipine 10 mg po daily. - HCTZ 25mg po daily - Enalapril 20mg po daily, Lasix 80mg po daily held due to low BP Osteoporosis - alendronate 70 mg 1qw Rheumatoid arthritis - May restart diclofenac dependent on nephro recs DJD - Accepted to TCU starting 01/06 or when medically clear GERD - Omeprazole 20 mg held in setting of urinary retention Ppx - Heparin 5000 units sc q8h Pt seen and examined, assessement and plan discussed with Dr Shan Buckley PGY1 - Date & Time Date: 01/08/18 Time: 19:06
[2018-01-09 08:33] LABS: BASO # 0.02 K/mm3 (0.0-2.0); BASO % 0.3 % (0.0-3.0); EOS # 0.2 (0.0-0.7); EOS % 3.6 % (1.5-5.0); GRAN # 3.08 (1.4-6.5); GRAN % 50.6 % (50.0-68.0); HEMOGLOBIN 10.8 g/dL (12.0-16.0); LYMPH # 2.3 (1.2-3.4); LYMPH % 37.9 % (22.0-35.0); MEAN CELL VOLUME 91.1 fl (80.0-105.0); MEAN CORPUSCULAR HEMOGLOBIN 30.1 pg (25.0-35.0); MONO # 0.5 (0.1-0.6); MONO % 7.6 % (1.0-6.0); RBC 3.59 10^6/uL (3.5-6.1); RED CELL DISTRIBUTION WIDTH 13.1 % (11.5-14.5); WHITE BLOOD COUNT 6.1 10^3/ul (4.5-11.0)
[2018-01-09 09:30] LABS: ALB/GLOB RATIO 1.4 (1.1-1.8)
[2018-01-09] MEDS: Potassium & Sodium Phosphate PO SCH ×2 (09:59→17:22)
[2018-01-09] MEDS: Cefpodoxime (Vantin) 200 mg Tab PO SCH ×2 (10:00→21:20)
--- NOTE | 2018-01-09 13:11 | CP.PCM.CON ---
<Lizeth Morales - Last Filed: 01/09/18 15:43> History of Present Illness - History of Present Illness History of Present Illness: Lizeth Morales, PGY2, Neurology Consult Note for Dr Hercules: Reason for consult: seizure like activity 77 year old Puerto Rican speaking female with PMH HTN, GERD, RA, Alzheimer's Disease, UTI requiring hospitalization in Mar 2017 presents to [facility] for dizziness, inability to talk in the morning of admission (on Monday). At the time of my exam, patient cannot recall as to why she is in the hospital. As per daughter, patient was at home with a home health aide. She then had a bilious vomiting episode, then started having shaking movements of her entire body, on and off for 1-2 hours, patient could not talk, woke up confused. No fevers, sob, cough, neck pain, diaphoresis, abdominal pain, leg swelling. Patient does not have a history of seizures. Patient was found to be hyponatremic 123, UTI, urinary retention, underlying etiologies were treated. EEG obtained showed normal results, no epilleptiform activity. Patient then however had a seizure episode on 01/05 in hospital, patient was then started on Keppra 500 mg PO BID. Currently, patient is alert, awake, in TCU, ambulating well with physical therapy. Denies any further seizure episodes, fevers, urinary symptoms, dizziness. 12 point ROS obtained and negative, except as per HPI. PMHx: HTN, GERD, RA, Alzheimer's Disease, UTI requiring hospitalization in Mar 2017 PSHx: R knee, hysterectomy, appendectomy, bladder Allergies: Iodine Family Hx: DM in family Social hx: Lives with daughter. Denies smoking and alcohol use. PCP: Dr. Roche Review of Systems - Review of Systems All systems: reviewed and no additional remarkable complaints except Review of Systems: as per HPI Past Patient History - Infectious Disease Hx of Infectious Diseases: None - Past Medical History & Family History Past Medical History?: Yes - Past Social History Smoking Status: Never Smoked - CARDIAC Hx Hypertension: Yes - PULMONARY Hx Respiratory Disorders: No - NEUROLOGICAL Hx Alzheimer's Disease: Yes - HEENT Hx Cataracts: Yes (sx ou) - RENAL Hx Chronic Kidney Disease: No - ENDOCRINE/METABOLIC Hx Endocrine Disorders: No - HEMATOLOGICAL/ONCOLOGICAL Hx Blood Disorders: No - INTEGUMENTARY Hx Dermatological Problems: No - MUSCULOSKELETAL/RHEUMATOLOGICAL Hx Rheumatoid Arthritis: Yes - GASTROINTESTINAL Hx Gastrointestinal Disorders: No - GENITOURINARY/GYNECOLOGICAL Hx Reproductive Disorders: No - PSYCHIATRIC Hx Psychophysiologic Disorder: No Hx Substance Use: No - SURGICAL HISTORY Hx Appendectomy: Yes - ANESTHESIA Hx Anesthesia: Yes Hx Anesthesia Reactions: No Hx Malignant Hyperthermia: No Meds Allergies/Adverse Reactions: Allergies Allergy/AdvReac Type Severity Reaction Status Date / Time Iodinated Contrast- Oral and Allergy RASH Verified 10/07/15 14:42 IV Dye [Iodinated Contrast Media - IV Dye] iodine AdvReac SWELLING Verified 10/28/16 13:41 - Medications Medications: Current Medications Alendronate Sodium (Fosamax) 70 mg PO Q7D@0600 [facility]; Protocol Amlodipine Besylate (Norvasc) 10 mg PO DAILY [facility]; Protocol Last Admin: 01/09/18 09:59 Dose: 10 mg Aspirin (Aspirin Chewable) 81 mg PO 0800 N[facility]ST[facility]; Protocol Last Admin: 01/09/18 07:45 Dose: 81 mg Atorvastatin Calcium (Lipitor) 10 mg PO DIN [facility]; Protocol Last Admin: 01/08/18 17:07 Dose: 10 mg Cefpodoxime Proxetil (Vantin) 200 mg PO Q12 [facility]; Protocol Last Admin: 01/09/18 10:00 Dose: 200 mg Clopidogrel Bisulfate (Plavix) 75 mg PO DAILY [facility]; Protocol Last Admin: 01/09/18 10:00 Dose: 75 mg Heparin Sodium (Porcine) (Heparin) 5,000 units SC Q8 [facility]; Protocol Last Admin: 01/09/18 05:49 Dose: 5,000 units Hydrochlorothiazide (Hydrodiuril) 25 mg PO 0800 N[facility]STOR; Protocol Ketorolac Tromethamine (Toradol) 15 mg IVP Q6 [facility] Levetiracetam (Keppra) 500 mg PO Q12 [facility]; Protocol Last Admin: 01/09/18 09:59 Dose: 500 mg Lorazepam (Ativan) 1 mg PO Q6H PRN; Protocol PRN Reason: Agitation Last Admin: 01/08/18 21:06 Dose: 1 mg Memantine (Namenda) 10 mg PO DAILY [facility]; Protocol Last Admin: 01/09/18 09:59 Dose: 10 mg Potassium Phos/Sodium Phos (Neutra-Phos) 1 pkt PO BID [facility]STOR; Protocol Last Admin: 01/09/18 09:59 Dose: 1 pkt Physical Exam - Additional Findings Additional findings: - Constitutional Appears: Non-toxic, No Acute Distress - Head Exam Head Exam: ATRAUMATIC, NORMOCEPHALIC - Eye Exam Eye Exam: EOMI, PERRL. absent: Conjunctival injection, Nystagmus, Scleral icterus Pupil Exam: NORMAL ACCOMODATION, PERRL. absent: Fixed, Irregular, Miosis, Unequal - ENT Exam ENT Exam: Mucous Membranes Moist - Neck Exam Neck exam: Positive for: Full Rom - Respiratory Exam Respiratory Exam: Clear to Auscultation Bilateral, NORMAL BREATHING PATTERN. absent: Accessory Muscle Use, Rhonchi, Wheezes, Stridor - Cardiovascular Exam Cardiovascular Exam: +S1, +S2. absent: Systolic Murmur - GI/Abdominal Exam GI & Abdominal Exam: Normal Bowel Sounds, Soft. absent: Firm, Guarding, Rebound, Rigid, Tenderness - Extremities Exam Extremities exam: Positive for: calf tenderness. Negative for: pedal edema - Back Exam Back exam: NORMAL INSPECTION - Neurological Exam Neurological exam: Alert, CN II-XII Intact, Reflexes Normal Additional comments: awake, alert, oriented to self, person, place, situation. Strength testing 5/5, equal BLE and BUE Sensation intact throughout. - Psychiatric Exam Psychiatric exam: Normal Affect - Skin Skin Exam: Normal Color, Warm Results - Vital Signs Recent Vital Signs: Last Vital Signs Temp 97.5 F L 01/09/18 10:00 Pulse 96 H 01/09/18 10:00 Resp 14 01/09/18 10:00 BP 114/79 01/09/18 10:00 Pulse Ox 98 01/09/18 10:00 - Labs Result Diagrams: 01/09/18 08:00 01/09/18 09:00 Labs: Laboratory Results - last 24 hr 01/09/18 01/09/18 08:00 09:00 WBC 6.1 RBC 3.59 Hgb 10.8 L Hct 32.7 L MCV 91.1 MCH 30.1 MCHC 33.0 RDW 13.1 Plt Count 269 MPV 9.0 Gran % 50.6 Lymph % (Auto) 37.9 H [place] % (Auto) 7.6 H Eos % (Auto) 3.6 Baso % (Auto) 0.3 Gran # 3.08 Lymph # (Auto) 2.3 [place] # (Auto) 0.5 Eos # (Auto) 0.2 Baso # (Auto) 0.02 Sodium 136 Potassium 4.9 Chloride 101 Carbon Dioxide 26 Anion Gap 15 BUN 19 Creatinine 1.1 Est GFR ( Amer) 58 Est GFR (Non-Af Amer) 48 Random Glucose 119 H Calcium 11.0 H Total Bilirubin 0.5 AST 26 ALT 23 Alkaline Phosphatase 62 Total Protein 6.9 Albumin 4.0 Globulin 2.9 Albumin/Globulin Ratio 1.4 Assessment & Plan - Assessment and Plan (Free Text) Assessment: 77 year old female with PMH HTN, GERD, RA, Alzheimer's Disease, UTI requiring hospitalization in Mar 2017 presents for seizure like episode, found to have hyponatremia, LANDRY, UTI, urinary retention. Patient underwent treatment of underlying etiologies, patient however developed another seizure on 01/05, started on Keppra 500 BID: - recommend outpatient follow up with neurology, Dr Hercules upon discharge. - continue with rehab Discussed case with Dr Hercules. <Yosi Hercules - Last Filed: 01/15/18 19:18> Results - Vital Signs Recent Vital Signs: Last Vital Signs Temp 98.7 F 01/15/18 16:00 Pulse 85 01/15/18 16:00 Resp 18 01/15/18 16:00 BP 126/84 01/15/18 16:00 Pulse Ox 99 01/15/18 16:00 - Labs Result Diagrams: 01/15/18 08:55 01/15/18 08:55 Labs: Laboratory Results - last 24 hr 01/15/18 01/15/18 08:55 08:55 WBC 7.8 RBC 3.60 Hgb 11.1 L Hct 33.2 L MCV 92.2 MCH 30.8 MCHC 33.4 RDW 13.5 Plt Count 266 MPV 9.5 Gran % 64.0 Lymph % (Auto) 26.9 [place] % (Auto) 6.5 H Eos % (Auto) 2.3 Baso % (Auto) 0.3 Gran # 4.99 Lymph # (Auto) 2.1 [place] # (Auto) 0.5 Eos # (Auto) 0.2 Baso # (Auto) 0.02 Sodium 137 Potassium 4.5 Chloride 103 Carbon Dioxide 24 Anion Gap 14 BUN 24 H Creatinine 1.2 Est GFR ( Amer) 53 Est GFR (Non-Af Amer) 43 Random Glucose 123 H Calcium 10.9 H Total Bilirubin 0.6 AST 36 ALT 22 Alkaline Phosphatase 76 Total Protein 7.8 Albumin 4.3 Globulin 3.5 Albumin/Globulin Ratio 1.2 Attending/Attestation - Attestation I have personally seen and examined this patient.: Yes I have fully participated in the care of the patient.: Yes I have reviewed all pertinent clinical information: Yes Notes (Text): 01/15/18 19:17 I agree with the assessment and plan. Will follow as outpatient once discharged.
[2018-01-09 17:00] VITALS: RESP 18
[2018-01-09 18:49] LABS: INR 1.03; PARTIAL THROMBOPLASTIN TIME 29.3 Seconds (25.1-36.5); PROTHROMBIN TIME 11.8 SECONDS (9.4-12.5)
[2018-01-10 07:40] LABS: BASO # 0.02 K/mm3 (0.0-2.0); BASO % 0.3 % (0.0-3.0); EOS # 0.2 (0.0-0.7); EOS % 3.2 % (1.5-5.0); GRAN # 3.36 (1.4-6.5); GRAN % 51.2 % (50.0-68.0); HEMOGLOBIN 9.6 g/dL (12.0-16.0); LYMPH # 2.6 (1.2-3.4); LYMPH % 39.4 % (22.0-35.0); MEAN CELL VOLUME 90.5 fl (80.0-105.0); MEAN CORPUSCULAR HEMOGLOBIN 30.4 pg (25.0-35.0); MEAN CORPUSCULAR HGB CONC 33.6 g/dl (31.0-37.0); MEAN PLATELET VOLUME 9.5 fl (7.0-11.0); MONO # 0.4 (0.1-0.6); MONO % 5.9 % (1.0-6.0); RBC 3.16 10^6/uL (3.5-6.1); RED CELL DISTRIBUTION WIDTH 13.1 % (11.5-14.5); WHITE BLOOD COUNT 6.6 10^3/ul (4.5-11.0)
[2018-01-10 07:51] LABS: INR 1.06; PARTIAL THROMBOPLASTIN TIME 37.8 Seconds (25.1-36.5); PROTHROMBIN TIME 12.2 SECONDS (9.4-12.5)
[2018-01-10 07:52] LABS: ALB/GLOB RATIO 1.2 (1.1-1.8); ALBUMIN 3.4 g/dL (3.0-4.8); CALCIUM 10.1 mg/dL (8.4-10.5)
[2018-01-10] MEDS: Cefpodoxime (Vantin) 200 mg Tab PO SCH ×2 (09:02→22:10)
[2018-01-10] MEDS: Potassium & Sodium Phosphate PO SCH ×2 (09:02→17:12)
--- NOTE | 2018-01-10 17:06 | CP.PCM.PN ---
<Hola Buckley - Last Filed: 01/10/18 17:11> Subjective - Date & Time of Evaluation Date of Evaluation: 01/10/18 Time of Evaluation: 17:05 - Subjective Subjective: Pt seen and examined at bedside. No new complaints at this time. Objective - Vital Signs/Intake and Output Vital Signs (last 24 hours): Temp Pulse Resp BP Pulse Ox 98.2 F 97 H 18 115/68 98 01/09/18 16:00 01/10/18 16:16 01/09/18 16:00 01/10/18 09:02 01/10/18 16:16 Intake and Output: 01/10/18 01/10/18 06:59 18:59 Intake Total 340 Output Total 425 Balance -85 - Medications Medications: Current Medications Alendronate Sodium (Fosamax) 70 mg PO Q7D@0600 [facility]; Protocol Amlodipine Besylate (Norvasc) 10 mg PO DAILY [facility]; Protocol Last Admin: 01/10/18 09:02 Dose: 10 mg Aspirin (Aspirin Chewable) 81 mg PO 0800 [facility]; Protocol Last Admin: 01/10/18 07:53 Dose: 81 mg Atorvastatin Calcium (Lipitor) 10 mg PO DIN [facility]; Protocol Last Admin: 01/09/18 17:22 Dose: 10 mg Cefpodoxime Proxetil (Vantin) 200 mg PO Q12 [facility]; Protocol Last Admin: 01/10/18 09:02 Dose: 200 mg Clopidogrel Bisulfate (Plavix) 75 mg PO DAILY [facility]; Protocol Last Admin: 01/10/18 09:02 Dose: 75 mg Heparin Sodium (Porcine) (Heparin) 5,000 units SC Q8 [facility]; Protocol Last Admin: 01/10/18 13:33 Dose: 5,000 units Hydrochlorothiazide (Hydrodiuril) 25 mg PO 0800 [facility]; Protocol Last Admin: 01/10/18 07:53 Dose: 25 mg Ibuprofen (Motrin Tab) 600 mg PO Q6H PRN PRN Reason: Pain, Mild (1-3) Last Admin: 01/09/18 21:20 Dose: 600 mg Ketorolac Tromethamine (Toradol) 15 mg IVP Q6 [facility] Last Admin: 01/09/18 20:21 Dose: Not Given Levetiracetam (Keppra) 500 mg PO Q12 [facility]; Protocol Last Admin: 01/10/18 09:02 Dose: 500 mg Lorazepam (Ativan) 1 mg PO Q6H PRN; Protocol PRN Reason: Agitation Last Admin: 01/08/18 21:06 Dose: 1 mg Memantine (Namenda) 10 mg PO DAILY [facility]; Protocol Last Admin: 01/10/18 09:02 Dose: 10 mg Potassium Phos/Sodium Phos (Neutra-Phos) 1 pkt PO BID [facility]; Protocol Last Admin: 01/10/18 09:02 Dose: 1 pkt - Labs Labs: 01/10/18 06:55 01/10/18 06:55 PT 12.2 SECONDS (9.4-12.5) 01/10/18 06:55 INR 1.06 01/10/18 06:55 APTT 37.8 Seconds (25.1-36.5) H 01/10/18 06:55 - Head Exam Head Exam: ATRAUMATIC, NORMOCEPHALIC - ENT Exam ENT Exam: Mucous Membranes Moist - Respiratory Exam Respiratory Exam: Clear to Ausculation Bilateral - Cardiovascular Exam Cardiovascular Exam: REGULAR RHYTHM - GI/Abdominal Exam GI & Abdominal Exam: Normal Bowel Sounds Assessment and Plan - Assessment and Plan (Free Text) Assessment: Patient is a 77 year old F with pmh HTN, GERD, RA, Alzheimer's Disease, UTI requiring hospitalization in Mar 2017, urdu speaking only presented to [facility] ED with dizziness followed by episode of muscle clenching in which the patient denies LOC or memory as well as had urinary retention and hyponatremia. Hyponatremia and urinary retention possibly 2/2 to over diuresis on home medications. Urology consulted for urinary retention. Seizure like activity noted over night for which a rapid response was called. Plan: Urinary Retention - Hold enalapril 20 mg qd, hctz 25 mg qd, lasix 80 mg qd. - Continue with Amlodipine 10 mg 1qd, HCTZ 25mg - Urinary retention 2/2 to possible medication interaction - Urology consult-Dr. Smith Seizures - 01/05/18 CT head- no acute intracranial abnormalities - 01/04/18 Brain MRI- no acute intracranial abnormalities - Neuro Consulted- Dr. Santoyo, Keppra 1000mg 1x dose; Keppra 500mg bid UTI - Vantin PO Alzheimers Disease - Memantine 10 mg 1qd HTN - Amlodipine 10 mg po daily. - HCTZ 25mg po daily - Enalapril 20mg po daily, Lasix 80mg po daily held due to low BP Osteoporosis - alendronate 70 mg 1qw GERD - Omeprazole 20 mg held in setting of urinary retention Ppx - Heparin 5000 units sc q8h Pt seen and examined, assessement and plan discussed with Dr Yasemin Buckley PGY1 <Capri Hazel - Last Filed: 01/11/18 07:12> Objective - Vital Signs/Intake and Output Vital Signs (last 24 hours): Temp Pulse Resp BP Pulse Ox 98.5 F 97 H 18 110/72 98 01/10/18 16:00 01/10/18 16:16 01/10/18 16:00 01/10/18 16:00 01/10/18 16:16 Intake and Output: 01/11/18 01/11/18 06:59 18:59 Intake Total 340 Output Total 550 Balance -210 - Medications Medications: Current Medications Alendronate Sodium (Fosamax) 70 mg PO Q7D@0600 [facility]; Protocol Amlodipine Besylate (Norvasc) 10 mg PO DAILY [facility]; Protocol Last Admin: 01/10/18 09:02 Dose: 10 mg Aspirin (Aspirin Chewable) 81 mg PO 0800 [facility]; Protocol Last Admin: 01/10/18 07:53 Dose: 81 mg Atorvastatin Calcium (Lipitor) 10 mg PO DIN [facility]; Protocol Last Admin: 01/10/18 17:12 Dose: 10 mg Clopidogrel Bisulfate (Plavix) 75 mg PO DAILY [facility]; Protocol Last Admin: 01/10/18 09:02 Dose: 75 mg Heparin Sodium (Porcine) (Heparin) 5,000 units SC Q8 [facility]; Protocol Last Admin: 01/11/18 05:00 Dose: 5,000 units Hydrochlorothiazide (Hydrodiuril) 25 mg PO 0800 [facility]; Protocol Last Admin: 01/10/18 07:53 Dose: 25 mg Sodium Chloride (Sodium Chloride 0.9%) 1,000 mls @ 100 mls/hr IV .Q10H [facility] Last Admin: 01/11/18 06:49 Dose: 100 mls/hr Ibuprofen (Motrin Tab) 600 mg PO Q6H PRN PRN Reason: Pain, Mild (1-3) Last Admin: 01/09/18 21:20 Dose: 600 mg Ketorolac Tromethamine (Toradol) 15 mg IVP Q6 [facility] Last Admin: 01/09/18 20:21 Dose: Not Given Levetiracetam (Keppra) 500 mg PO Q12 [facility]; Protocol Last Admin: 01/10/18 22:10 Dose: 500 mg Lorazepam (Ativan) 1 mg PO Q6H PRN; Protocol PRN Reason: Agitation Last Admin: 01/08/18 21:06 Dose: 1 mg Memantine (Namenda) 10 mg PO DAILY [facility]; Protocol Last Admin: 01/10/18 09:02 Dose: 10 mg Potassium Phos/Sodium Phos (Neutra-Phos) 1 pkt PO BID [facility]; Protocol Last Admin: 01/10/18 17:12 Dose: 1 pkt - Labs Labs: 01/10/18 06:55 01/10/18 06:55 PT 12.2 SECONDS (9.4-12.5) 01/10/18 06:55 INR 1.06 01/10/18 06:55 APTT 37.8 Seconds (25.1-36.5) H 01/10/18 06:55 Attending/Attestation - Attestation I have personally seen and examined this patient.: Yes I have fully participated in the care of the patient.: Yes I have reviewed all pertinent clinical information, including history, physical exam and plan: Yes Notes (Text): 01/10/18 77 year old female with past medical history of hypertension, alzheimer's disease and seizure who initially presented with dizziness. While on floor she had episode of urinary retention, resolved. She also had seizure and was started on keppra. CT head and MRI brain were negative for acute findings. She was transferred to TCU for physical therapy rehabilitation. Patient appears comfortable in pain. Complains of chronic knee pain from arthritis. She is on motrin prn. Continue with PT as tolerated. Capri Hazel MD Hospitalist.
--- NOTE | 2018-01-10 21:29 | PCM.RRT ---
PHOSPHATIC FERTILIZER SUPERVISOR Nurse Assessment - Situation Date: 01/10/18 Time PHOSPHATIC FERTILIZER SUPERVISOR was called: 21:07 PHOSPHATIC FERTILIZER SUPERVISOR Responder Arrival Time: 21:08 PHOSPHATIC FERTILIZER SUPERVISOR Location:: Transitional Care Unit PHOSPHATIC FERTILIZER SUPERVISOR Reason for Call: Change in Mental Status (? Seizure) - IV IV Inserted during PHOSPHATIC FERTILIZER SUPERVISOR?: Yes IV Fluids Initiated During PHOSPHATIC FERTILIZER SUPERVISOR?: yes - Respiratory Oxygen Delivery Method: Nasal Cannula @L/min I.Reason for PHOSPHATIC FERTILIZER SUPERVISOR - A) Acute Change in Patient: (Select all that apply): Acute change in mental status Subjective: Oliver Chávez, PGY-1 PHOSPHATIC FERTILIZER SUPERVISOR Note for Hospitalist Service Patient seen and evaluated at bedside immediately after PHOSPHATIC FERTILIZER SUPERVISOR was called. Patient was found shaking with some excess sputum production at the mouth and moaning while lying down in bed. Patient could not convey further symptoms at the time. Nursing reported the patient feeling full body itchiness along with feeling like something was stuck in her throat. - Constitutional Appears: In Acute Distress - Head Head Exam: ATRAUMATIC, NORMOCEPHALIC - Respiratory Exam Respiratory Exam: Wheezes. absent: Accessory Muscle Use, Chest Wall Tenderness - Cardiovascular Exam Cardiovascular Exam: Tachycardia, +S1, +S2 - GI/Abdominal Exam GI & Abdominal Exam: Soft, Normal Bowel Sounds. absent: Distended, Tenderness - Neurological Exam Neurological Exam: Altered, Awake Plan - Assessment of Findings&Treatment Plan Vitals at time of presentation: BP 170/105, HR 125, 100% on 2L NC Patient is an 77 year old female currently being treated for urinary retention, UTI on Vantin and new-onset seizures on Keppra 500 mg BID. Patient likely experienced a seizure, no tongue biting or urinary/bowel incontinence. Because patient had no IV access at time, 2 mg Ativan IM was ordered. Upon successful IV access, ordered 1 mg Ativan IVP. CXR was ordered to rule out aspiration, normal saline began at 100 cc/hr, and a prolactin was ordered. Patient seizure activity stopped, hemodynamically stable and denies current headaches, chest pain, shortness of breath. Will continue to monitor patient, and will communicate with day team regarding ongoing care. Tachycardia improving to 108. Will review AM CMP to see if any electrolyte abnormality is etiology of seizure, although NA has been 135. Patient seen, case reviewed, and plan discussed with Dr. Torrez. Oliver Chávez, PGY-1
[2018-01-10] MEDS: Sodium Chloride 0.9% 1,000 ML IV SCH (21:57)
[2018-01-11] MEDS: Sodium Chloride 0.9% 1,000 ML IV SCH (06:49)
[2018-01-11 07:56] LABS: BASO # 0.02 K/mm3 (0.0-2.0); BASO % 0.3 % (0.0-3.0); EOS # 0.2 (0.0-0.7); EOS % 2.7 % (1.5-5.0); GRAN # 3.76 (1.4-6.5); GRAN % 57.3 % (50.0-68.0); HEMOGLOBIN 9.6 g/dL (12.0-16.0); LYMPH # 2.2 (1.2-3.4); LYMPH % 33.3 % (22.0-35.0); MEAN CELL VOLUME 91.5 fl (80.0-105.0); MEAN CORPUSCULAR HEMOGLOBIN 30.3 pg (25.0-35.0); MEAN CORPUSCULAR HGB CONC 33.1 g/dl (31.0-37.0); MEAN PLATELET VOLUME 9.2 fl (7.0-11.0); MONO # 0.4 (0.1-0.6); MONO % 6.4 % (1.0-6.0); RBC 3.17 10^6/uL (3.5-6.1); RED CELL DISTRIBUTION WIDTH 13.2 % (11.5-14.5); WHITE BLOOD COUNT 6.6 10^3/ul (4.5-11.0)
[2018-01-11 08:12] LABS: ALB/GLOB RATIO 1.2 (1.1-1.8); ALBUMIN 3.6 g/dL (3.0-4.8); ALT/SGPT 34 U/L (7-56); AST/SGOT 32 U/L (14-36); BLOOD UREA NITROGEN 21 mg/dL (7-21); CALCIUM 9.9 mg/dL (8.4-10.5); GFR NON-AFRICAN AMERICAN 54
--- NOTE | 2018-01-11 09:32 | RAD ---
Date of service: 01/10/2018 HISTORY: seizure, ? aspiration COMPARISON: Portable chest 01/03/2018. FINDINGS: LUNGS: No active pulmonary disease. PLEURA: No significant pleural effusion identified, no pneumothorax apparent. CARDIOVASCULAR: Normal. OSSEOUS STRUCTURES: No significant abnormalities. VISUALIZED UPPER ABDOMEN: Normal. OTHER FINDINGS: None. IMPRESSION: No interval acute cardiopulmonary disease appreciated.
[2018-01-11] MEDS: Potassium & Sodium Phosphate PO SCH ×2 (10:22→17:29)
--- NOTE | 2018-01-11 14:25 | CP.PCM.PN ---
<Lizeth Morales - Last Filed: 01/11/18 18:01> Subjective - Date & Time of Evaluation Date of Evaluation: 01/11/18 Time of Evaluation: 14:19 - Subjective Subjective: Lizeth Morales, PGY2, Neurology Progress Note for Dr Hercules: Patient seen and examined at bedside. 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 Patient had generalized shaking movements of her body. Prior to seizure episode, patient complained of generalized itching, "knot in esophagus." Patient also had a postictal drowsy state, confused afterwards as per staff. No urinary/bowel incontinence, tongue biting. Patient still drowsy this AM, but AOx4, denies further seizure episodes, nausea, vomiting, fevers, focal weakness. Objective - Vital Signs/Intake and Output Vital Signs (last 24 hours): Temp Pulse Resp BP Pulse Ox 98.5 F 97 H 18 121/73 98 01/10/18 16:00 01/10/18 16:16 01/10/18 16:00 01/11/18 10:23 01/10/18 16:16 Intake and Output: 01/11/18 01/11/18 06:59 18:59 Intake Total 340 Output Total 550 Balance -210 - Medications Medications: Current Medications Alendronate Sodium (Fosamax) 70 mg PO Q7D@0600 [facility]; Protocol Amlodipine Besylate (Norvasc) 10 mg PO DAILY [facility]; Protocol Last Admin: 01/11/18 10:23 Dose: 10 mg Aspirin (Aspirin Chewable) 81 mg PO 0800 [facility]; Protocol Last Admin: 01/11/18 10:23 Dose: 81 mg Atorvastatin Calcium (Lipitor) 10 mg PO DIN [facility]; Protocol Last Admin: 01/10/18 17:12 Dose: 10 mg Clopidogrel Bisulfate (Plavix) 75 mg PO DAILY [facility]; Protocol Last Admin: 01/11/18 10:23 Dose: 75 mg Heparin Sodium (Porcine) (Heparin) 5,000 units SC Q8 [facility]; Protocol Last Admin: 01/11/18 14:10 Dose: 5,000 units Hydrochlorothiazide (Hydrodiuril) 25 mg PO 0800 [facility]; Protocol Last Admin: 01/11/18 10:22 Dose: 25 mg Ibuprofen (Motrin Tab) 600 mg PO Q6H PRN PRN Reason: Pain, Mild (1-3) Last Admin: 01/09/18 21:20 Dose: 600 mg Ketorolac Tromethamine (Toradol) 15 mg IVP Q6 [facility] Last Admin: 01/09/18 20:21 Dose: Not Given Levetiracetam (Keppra) 500 mg PO Q12 [facility]; Protocol Last Admin: 01/11/18 10:23 Dose: 500 mg Lorazepam (Ativan) 1 mg PO Q6H PRN; Protocol PRN Reason: Agitation Last Admin: 01/08/18 21:06 Dose: 1 mg Memantine (Namenda) 10 mg PO DAILY [facility]; Protocol Last Admin: 01/11/18 10:23 Dose: 10 mg Potassium Phos/Sodium Phos (Neutra-Phos) 1 pkt PO BID [facility]; Protocol Last Admin: 01/11/18 10:22 Dose: 1 pkt - Labs Labs: 01/11/18 07:00 01/11/18 07:00 PT 12.2 SECONDS (9.4-12.5) 01/10/18 06:55 INR 1.06 01/10/18 06:55 APTT 37.8 Seconds (25.1-36.5) H 01/10/18 06:55 Assessment and Plan - Assessment and Plan (Free Text) Assessment: 77 year old female with PMH HTN, GERD, RA, Alzheimer's Disease, UTI requiring hospitalization in Mar 2017, presents to ED initially for seizure like episode, found to have hyponatremia, LANDRY, UTI, urinary retention. Patient underwent treatment of underlying etiologies, patient however has developed 2 seizures despite treatment of undelying etiologies (the second seizure while on keppra 500 BID): - head CT 10/ showed chronic microvascular changes. no acute changes. - Brain MRI 10/ negative - EEG 10/5 normal awake/drowsy eeg - Will repeat EEG - Increase keppra to 750 mg PO BID - ativan prn seizure - seizure precautions, fall precautions Will discuss case with Dr Hercules. <Yosi Hercules - Last Filed: 01/15/18 19:19> Objective - Vital Signs/Intake and Output Vital Signs (last 24 hours): Temp Pulse Resp BP Pulse Ox 98.7 F 85 18 126/84 99 01/15/18 16:00 01/15/18 16:00 01/15/18 16:00 01/15/18 16:00 01/15/18 16:00 - Labs Labs: 01/15/18 08:55 01/15/18 08:55 PT 12.2 SECONDS (9.4-12.5) 01/10/18 06:55 INR 1.06 01/10/18 06:55 APTT 37.8 Seconds (25.1-36.5) H 01/10/18 06:55 Attending/Attestation - Attestation I have personally seen and examined this patient.: Yes I have fully participated in the care of the patient.: Yes I have reviewed all pertinent clinical information, including history, physical exam and plan: Yes Notes (Text): 01/15/18 19:19 I agree with the assessment and plan. Will increase Keppra to 750 mg BID.
--- NOTE | 2018-01-11 16:42 | CP.PCM.PN ---
<Hola Buckley - Last Filed: 01/11/18 16:49> Subjective - Date & Time of Evaluation Date of Evaluation: 01/11/18 Time of Evaluation: 16:40 - Subjective Subjective: Pt seen and examined at bedside in TCU. No new complaints at this time. Objective - Vital Signs/Intake and Output Vital Signs (last 24 hours): Temp Pulse Resp BP Pulse Ox 98.5 F 71 18 121/73 99 01/11/18 10:00 01/11/18 10:00 01/11/18 10:00 01/11/18 10:23 01/11/18 10:00 Intake and Output: 01/11/18 01/11/18 06:59 18:59 Intake Total 340 Output Total 550 Balance -210 - Medications Medications: Current Medications Alendronate Sodium (Fosamax) 70 mg PO Q7D@0600 [facility]; Protocol Amlodipine Besylate (Norvasc) 10 mg PO DAILY [facility]; Protocol Last Admin: 01/11/18 10:23 Dose: 10 mg Aspirin (Aspirin Chewable) 81 mg PO 0800 [facility]; Protocol Last Admin: 01/11/18 10:23 Dose: 81 mg Atorvastatin Calcium (Lipitor) 10 mg PO DIN [facility]; Protocol Last Admin: 01/10/18 17:12 Dose: 10 mg Clopidogrel Bisulfate (Plavix) 75 mg PO DAILY [facility]; Protocol Last Admin: 01/11/18 10:23 Dose: 75 mg Heparin Sodium (Porcine) (Heparin) 5,000 units SC Q8 [facility]; Protocol Last Admin: 01/11/18 14:10 Dose: 5,000 units Hydrochlorothiazide (Hydrodiuril) 25 mg PO 0800 [facility]; Protocol Last Admin: 01/11/18 10:22 Dose: 25 mg Ibuprofen (Motrin Tab) 600 mg PO Q6H PRN PRN Reason: Pain, Mild (1-3) Last Admin: 01/09/18 21:20 Dose: 600 mg Ketorolac Tromethamine (Toradol) 15 mg IVP Q6 [facility] Last Admin: 01/09/18 20:21 Dose: Not Given Levetiracetam (Keppra) 750 mg PO BID [facility] Lorazepam (Ativan) 1 mg PO Q6H PRN; Protocol PRN Reason: Agitation Last Admin: 01/08/18 21:06 Dose: 1 mg Memantine (Namenda) 10 mg PO DAILY [facility]; Protocol Last Admin: 01/11/18 10:23 Dose: 10 mg Potassium Phos/Sodium Phos (Neutra-Phos) 1 pkt PO BID [facility]; Protocol Last Admin: 01/11/18 10:22 Dose: 1 pkt - Labs Labs: 01/11/18 07:00 01/11/18 07:00 PT 12.2 SECONDS (9.4-12.5) 01/10/18 06:55 INR 1.06 01/10/18 06:55 APTT 37.8 Seconds (25.1-36.5) H 01/10/18 06:55 - Constitutional Appears: No Acute Distress - Head Exam Head Exam: ATRAUMATIC, NORMOCEPHALIC - Eye Exam Eye Exam: EOMI, Normal appearance. absent: Scleral icterus - ENT Exam ENT Exam: Mucous Membranes Moist - Neck Exam Neck Exam: Full ROM - Respiratory Exam Respiratory Exam: Clear to Ausculation Bilateral, NORMAL BREATHING PATTERN. absent: Wheezes, Respiratory Distress - Cardiovascular Exam Cardiovascular Exam: REGULAR RHYTHM, RRR, +S1, +S2. absent: Diastolic murmur - GI/Abdominal Exam GI & Abdominal Exam: Soft, Normal Bowel Sounds. absent: Tenderness, Rebound - Extremities Exam Extremities Exam: absent: Calf Tenderness, Pedal Edema, Tenderness - Neurological Exam Neurological Exam: Awake - Psychiatric Exam Psychiatric exam: Normal Affect, Normal Mood - Skin Skin Exam: Dry, Normal Color, Warm Assessment and Plan - Assessment and Plan (Free Text) Assessment: Patient is a 77 year old F with pmh HTN, GERD, RA, Alzheimer's Disease, UTI requiring hospitalization in Mar 2017, presented to [facility] with dizziness followed by episode of muscle clenching in which the patient denies LOC or memory as well as had urinary retention and hyponatremia. Seizure like activity noted over night for which a rapid response was called. Plan: Seizures - 01/05/18 CT head- no acute intracranial abnormalities - 01/04/18 Brain MRI- no acute intracranial abnormalities - Neuro, Dr. Santoyo, Keppra 500mg bid, Consider repeat EEG and increasing AED dosage, seizure precautions, fall precautions Urinary Retention, resolved - Continue with Amlodipine 10 mg 1qd, HCTZ 25mg - Urinary retention 2/2 to possible medication interaction - Urology consult-Dr. Smith Alzheimers Disease - Memantine 10 mg 1qd HTN - Amlodipine 10 mg po daily - HCTZ 25mg po daily Osteoporosis - alendronate 70 mg 1qw Ppx - Heparin 5000 units sc q8h Pt seen and examined, assessement and plan discussed with Dr Yasemin Buckley PGY1 <Capri Hazel - Last Filed: 01/11/18 19:12> Objective - Vital Signs/Intake and Output Vital Signs (last 24 hours): Temp Pulse Resp BP Pulse Ox 98.4 F 82 18 113/60 98 01/11/18 16:00 01/11/18 16:00 01/11/18 16:00 01/11/18 16:00 01/11/18 16:00 - Medications Medications: Current Medications Alendronate Sodium (Fosamax) 70 mg PO Q7D@0600 [facility]; Protocol Amlodipine Besylate (Norvasc) 10 mg PO DAILY [facility]; Protocol Last Admin: 01/11/18 10:23 Dose: 10 mg Aspirin (Aspirin Chewable) 81 mg PO 0800 [facility]; Protocol Last Admin: 01/11/18 10:23 Dose: 81 mg Atorvastatin Calcium (Lipitor) 10 mg PO DIN [facility]; Protocol Last Admin: 01/11/18 17:29 Dose: 10 mg Clopidogrel Bisulfate (Plavix) 75 mg PO DAILY [facility]; Protocol Last Admin: 01/11/18 10:23 Dose: 75 mg Heparin Sodium (Porcine) (Heparin) 5,000 units SC Q8 [facility]; Protocol Last Admin: 01/11/18 14:10 Dose: 5,000 units Hydrochlorothiazide (Hydrodiuril) 25 mg PO 0800 [facility]; Protocol Last Admin: 01/11/18 10:22 Dose: 25 mg Ibuprofen (Motrin Tab) 600 mg PO Q6H PRN PRN Reason: Pain, Mild (1-3) Last Admin: 01/09/18 21:20 Dose: 600 mg Ketorolac Tromethamine (Toradol) 15 mg IVP Q6 [facility] Last Admin: 01/09/18 20:21 Dose: Not Given Levetiracetam (Keppra) 750 mg PO BID [facility] Last Admin: 01/11/18 17:28 Dose: 750 mg Lorazepam (Ativan) 1 mg PO Q6H PRN; Protocol PRN Reason: Agitation Last Admin: 01/08/18 21:06 Dose: 1 mg Memantine (Namenda) 10 mg PO DAILY [facility]; Protocol Last Admin: 01/11/18 10:23 Dose: 10 mg Potassium Phos/Sodium Phos (Neutra-Phos) 1 pkt PO BID [facility]; Protocol Last Admin: 01/11/18 17:29 Dose: 1 pkt - Labs Labs: 01/11/18 07:00 01/11/18 07:00 PT 12.2 SECONDS (9.4-12.5) 01/10/18 06:55 INR 1.06 01/10/18 06:55 APTT 37.8 Seconds (25.1-36.5) H 01/10/18 06:55 Attending/Attestation - Attestation I have personally seen and examined this patient.: Yes I have fully participated in the care of the patient.: Yes I have reviewed all pertinent clinical information, including history, physical exam and plan: Yes Notes (Text): 01/11/18 19:11 77 year old female with past medical history of hypertension, alzheimer's disease and seizure who initially presented with dizziness. While on floor she had episode of urinary retention, resolved. She also had seizure and was started on keppra. CT head and MRI brain were negative for acute findings. She was transferred to TCU for physical therapy rehabilitation. Continue with PT as tolerated. 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 Case was discussed with neurology today. Keppra dose is increased and EEG is ordered. Capri Hazel MD Hospitalist.
[2018-01-12 08:08] LABS: BASO # 0.02 K/mm3 (0.0-2.0); BASO % 0.3 % (0.0-3.0); EOS # 0.2 (0.0-0.7); EOS % 2.5 % (1.5-5.0); GRAN # 4.27 (1.4-6.5); GRAN % 60.1 % (50.0-68.0); LYMPH # 2.2 (1.2-3.4); LYMPH % 30.2 % (22.0-35.0); MEAN CORPUSCULAR HEMOGLOBIN 30.2 pg (25.0-35.0); MEAN CORPUSCULAR HGB CONC 32.2 g/dl (31.0-37.0); MEAN PLATELET VOLUME 9.8 fl (7.0-11.0); MONO # 0.5 (0.1-0.6); MONO % 6.9 % (1.0-6.0); RBC 3.31 10^6/uL (3.5-6.1); RED CELL DISTRIBUTION WIDTH 13.6 % (11.5-14.5); WHITE BLOOD COUNT 7.1 10^3/ul (4.5-11.0)
[2018-01-12 08:29] LABS: ALB/GLOB RATIO 1.1 (1.1-1.8); ALBUMIN 3.5 g/dL (3.0-4.8); CALCIUM 9.9 mg/dL (8.4-10.5)
--- NOTE | 2018-01-12 10:31 | CP.PCM.PN ---
<Lizeth Morales - Last Filed: 01/12/18 17:02> Subjective - Date & Time of Evaluation Date of Evaluation: 01/12/18 Time of Evaluation: 10:24 - Subjective Subjective: Lizeth Morales PGY2, Neurology Progress Note for Dr Hercules: Patient seen and examined while in the gym. No acute events overnight. Patient awake, alert, oriented x4. Denies further seizure episodes, nausea, vomiting, fevers, urinary symptoms. Objective - Vital Signs/Intake and Output Vital Signs (last 24 hours): Temp Pulse Resp BP Pulse Ox 98.4 F 82 18 113/60 98 01/11/18 16:00 01/11/18 16:00 01/11/18 16:00 01/11/18 16:00 01/11/18 16:00 - Medications Medications: Current Medications Alendronate Sodium (Fosamax) 70 mg PO Q7D@0600 [facility]; Protocol Last Admin: 01/12/18 05:52 Dose: 70 mg Amlodipine Besylate (Norvasc) 10 mg PO DAILY [facility]; Protocol Last Admin: 01/11/18 10:23 Dose: 10 mg Aspirin (Aspirin Chewable) 81 mg PO 0800 [facility]; Protocol Last Admin: 01/12/18 08:04 Dose: 81 mg Atorvastatin Calcium (Lipitor) 10 mg PO DIN [facility]; Protocol Last Admin: 01/11/18 17:29 Dose: 10 mg Clopidogrel Bisulfate (Plavix) 75 mg PO DAILY [facility]; Protocol Last Admin: 01/11/18 10:23 Dose: 75 mg Heparin Sodium (Porcine) (Heparin) 5,000 units SC Q8 [facility]; Protocol Last Admin: 01/12/18 05:52 Dose: 5,000 units Hydrochlorothiazide (Hydrodiuril) 25 mg PO 0800 [facility]; Protocol Last Admin: 01/12/18 08:05 Dose: Not Given Ibuprofen (Motrin Tab) 600 mg PO Q6H PRN PRN Reason: Pain, Mild (1-3) Last Admin: 01/12/18 01:59 Dose: 600 mg Ketorolac Tromethamine (Toradol) 15 mg IVP Q6 [facility] Last Admin: 01/09/18 20:21 Dose: Not Given Levetiracetam (Keppra) 750 mg PO BID [facility] Last Admin: 01/11/18 17:28 Dose: 750 mg Lorazepam (Ativan) 1 mg PO Q6H PRN; Protocol PRN Reason: Agitation Last Admin: 01/08/18 21:06 Dose: 1 mg Memantine (Namenda) 10 mg PO DAILY [facility]; Protocol Last Admin: 01/11/18 10:23 Dose: 10 mg Potassium Phos/Sodium Phos (Neutra-Phos) 1 pkt PO BID [facility]; Protocol Last Admin: 01/11/18 17:29 Dose: 1 pkt - Labs Labs: 01/12/18 07:30 01/12/18 07:30 PT 12.2 SECONDS (9.4-12.5) 01/10/18 06:55 INR 1.06 01/10/18 06:55 APTT 37.8 Seconds (25.1-36.5) H 01/10/18 06:55 - Additional Findings Additional findings: - Constitutional Appears: Non-toxic, No Acute Distress - Head Exam Head Exam: ATRAUMATIC, NORMOCEPHALIC - Eye Exam Eye Exam: EOMI, PERRL. absent: Conjunctival injection, Nystagmus, Scleral icterus Pupil Exam: NORMAL ACCOMODATION, PERRL. absent: Fixed, Irregular, Miosis, Unequal - ENT Exam ENT Exam: Mucous Membranes Moist - Neck Exam Neck exam: Positive for: Full Rom - Respiratory Exam Respiratory Exam: Clear to Auscultation Bilateral, NORMAL BREATHING PATTERN. absent: Accessory Muscle Use, Rhonchi, Wheezes, Stridor - Cardiovascular Exam Cardiovascular Exam: +S1, +S2. absent: Systolic Murmur - GI/Abdominal Exam GI & Abdominal Exam: Normal Bowel Sounds, Soft. absent: Firm, Guarding, R ebound, Rigid, Tenderness - Extremities Exam Extremities exam: Positive for: calf tenderness. Negative for: pedal edema - Back Exam Back exam: NORMAL INSPECTION - Neurological Exam Neurological exam: Alert, CN II-XII Intact, Reflexes Normal Additional comments: awake, alert, oriented to self, person, place, situation. Strength testing 5/5, equal BLE and BUE Sensation intact throughout. - Psychiatric Exam Psychiatric exam: Normal Affect - Skin Skin Exam: Normal Color, Warm Assessment and Plan - Assessment and Plan (Free Text) Assessment: 77 year old female with PMH HTN, GERD, RA, Alzheimer's Disease, UTI requiring hospitalization in Mar 2017, presents to ED initially for seizure like episode, found to have hyponatremia, LANDRY, UTI, urinary retention. Patient underwent treatment of underlying etiologies, patient however developed 2 seizures despite treatment of underlying etiologies (the second seizure while on keppra 500 BID); increased dosage of AED: - head CT 01/05 showed chronic microvascular changes. no acute changes. - Brain MRI 10/ negative - EEG 10/ normal awake/drowsy eeg - continue keppra to 750 mg PO BID - canceled EEG, as patient is fully awake, alert, Ox4 - ativan prn seizure - seizure precautions, fall precautions Discussed case with Dr Hercules. <Yosi Hercules - Last Filed: 01/15/18 19:20> Objective - Vital Signs/Intake and Output Vital Signs (last 24 hours): Temp Pulse Resp BP Pulse Ox 98.7 F 85 18 126/84 99 01/15/18 16:00 01/15/18 16:00 01/15/18 16:00 01/15/18 16:00 01/15/18 16:00 - Labs Labs: 01/15/18 08:55 01/15/18 08:55 PT 12.2 SECONDS (9.4-12.5) 01/10/18 06:55 INR 1.06 01/10/18 06:55 APTT 37.8 Seconds (25.1-36.5) H 01/10/18 06:55 Attending/Attestation - Attestation I have personally seen and examined this patient.: Yes I have fully participated in the care of the patient.: Yes I have reviewed all pertinent clinical information, including history, physical exam and plan: Yes Notes (Text): 01/15/18 19:20 I agree with the assessment and plan. Will continue current medications.
[2018-01-12] MEDS: Potassium & Sodium Phosphate PO SCH ×2 (10:39→17:47)
[2018-01-13] MEDS ORDERED: DiphenhydrAMINE 50 mg/ml Inj IVP ONE (08:46)
[2018-01-13] MEDS: Potassium & Sodium Phosphate PO SCH ×2 (09:27→17:16)
--- NOTE | 2018-01-13 15:21 | CP.PCM.PN ---
<Hola Buckley - Last Filed: 01/13/18 15:26> Subjective - Date & Time of Evaluation Date of Evaluation: 01/13/18 Time of Evaluation: 15:19 - Subjective Subjective: Pt seen and examined this morning in TCU, pt is complaining of itchiness. Objective - Vital Signs/Intake and Output Vital Signs (last 24 hours): Temp Pulse Resp BP Pulse Ox 98.1 F 75 18 148/81 99 01/13/18 10:00 01/13/18 10:00 01/13/18 10:00 01/13/18 10:00 01/13/18 10:00 - Medications Medications: Current Medications Acetaminophen (Tylenol 325mg Tab) 650 mg PO Q4H PRN PRN Reason: Pain, moderate (4-7) Alendronate Sodium (Fosamax) 70 mg PO Q7D@0600 [facility]; Protocol Last Admin: 01/12/18 05:52 Dose: 70 mg Amlodipine Besylate (Norvasc) 10 mg PO DAILY [facility]; Protocol Last Admin: 01/13/18 09:35 Dose: 10 mg Aspirin (Aspirin Chewable) 81 mg PO 0800 [facility]; Protocol Last Admin: 01/13/18 08:40 Dose: 81 mg Atorvastatin Calcium (Lipitor) 10 mg PO DIN [facility]; Protocol Last Admin: 01/12/18 17:47 Dose: 10 mg Clopidogrel Bisulfate (Plavix) 75 mg PO DAILY [facility]; Protocol Last Admin: 01/13/18 09:33 Dose: 75 mg Heparin Sodium (Porcine) (Heparin) 5,000 units SC Q8 [facility]; Protocol Last Admin: 01/13/18 13:57 Dose: Not Given Hydrochlorothiazide (Hydrodiuril) 25 mg PO 0800 [facility]; Protocol Last Admin: 01/13/18 08:40 Dose: 25 mg Ibuprofen (Motrin Tab) 600 mg PO Q6H PRN PRN Reason: Pain, Mild (1-3) Last Admin: 01/13/18 12:50 Dose: 600 mg Ketorolac Tromethamine (Toradol) 15 mg IVP Q6 [facility] Last Admin: 01/09/18 20:21 Dose: Not Given Levetiracetam (Keppra) 750 mg PO BID [facility] Last Admin: 01/13/18 09:26 Dose: Not Given Lorazepam (Ativan) 1 mg PO Q6H PRN; Protocol PRN Reason: Agitation Last Admin: 01/08/18 21:06 Dose: 1 mg Lorazepam (Ativan) 1 mg IVP ONCE PRN; Protocol PRN Reason: Seizure activity Memantine (Namenda) 10 mg PO DAILY [facility]; Protocol Last Admin: 01/13/18 09:27 Dose: 10 mg Potassium Phos/Sodium Phos (Neutra-Phos) 1 pkt PO BID [facility]; Protocol Last Admin: 01/13/18 09:27 Dose: 1 pkt - Labs Labs: 01/12/18 07:30 01/12/18 07:30 PT 12.2 SECONDS (9.4-12.5) 01/10/18 06:55 INR 1.06 01/10/18 06:55 APTT 37.8 Seconds (25.1-36.5) H 01/10/18 06:55 - Constitutional Appears: Non-toxic, No Acute Distress - Head Exam Head Exam: ATRAUMATIC, NORMOCEPHALIC - Eye Exam Eye Exam: EOMI - ENT Exam ENT Exam: Mucous Membranes Moist - Neck Exam Neck Exam: Full ROM - Respiratory Exam Respiratory Exam: Clear to Ausculation Bilateral, NORMAL BREATHING PATTERN. absent: Accessory Muscle Use, Wheezes, Respiratory Distress - Cardiovascular Exam Cardiovascular Exam: RRR, +S1, +S2. absent: Diastolic murmur - GI/Abdominal Exam GI & Abdominal Exam: Soft, Normal Bowel Sounds. absent: Rebound - Extremities Exam Extremities Exam: Full ROM - Neurological Exam Neurological Exam: Alert, Awake, Oriented x3 - Psychiatric Exam Psychiatric exam: Normal Affect, Normal Mood - Skin Skin Exam: Dry, Intact, Warm Assessment and Plan - Assessment and Plan (Free Text) Assessment: Patient is a 77 year old F with pmh HTN, GERD, RA, Alzheimer's Disease, UTI requiring hospitalization in Mar 2017, presented to [facility] ED with dizziness followed by episode of muscle clenching in which the patient denies LOC or memory as well as had urinary retention and hyponatremia. Pt reprots itchiness. Plan: Seizures - 01/05/18 CT head- no acute intracranial abnormalities - 01/04/18 Brain MRI- no acute intracranial abnormalities - will consider EEG as out pt or after discharge - Neuro, Dr. Santoyo, Keppra 750mg bid, Consider repeat EEG and increasing AED dosage, seizure precautions, fall precautions Itchiness - Benadryl PRN - continue to monitor Alzheimers Disease - Memantine 10 mg 1qd HTN - Amlodipine 10 mg po daily - HCTZ 25mg po daily Osteoporosis - alendronate 70 mg 1qw Ppx - Heparin 5000 units sc q8h Pt seen and examined, assessment and plan discussed with Dr Yasemin Buckley PGY1 <Capri Hazel - Last Filed: 01/13/18 15:39> Objective - Vital Signs/Intake and Output Vital Signs (last 24 hours): Temp Pulse Resp BP Pulse Ox 98.1 F 75 18 148/81 99 01/13/18 10:00 01/13/18 10:00 01/13/18 10:00 01/13/18 10:00 01/13/18 10:00 - Medications Medications: Current Medications Acetaminophen (Tylenol 325mg Tab) 650 mg PO Q4H PRN PRN Reason: Pain, moderate (4-7) Alendronate Sodium (Fosamax) 70 mg PO Q7D@0600 [facility]; Protocol Last Admin: 01/12/18 05:52 Dose: 70 mg Amlodipine Besylate (Norvasc) 10 mg PO DAILY [facility]; Protocol Last Admin: 01/13/18 09:35 Dose: 10 mg Aspirin (Aspirin Chewable) 81 mg PO 0800 [facility]; Protocol Last Admin: 01/13/18 08:40 Dose: 81 mg Atorvastatin Calcium (Lipitor) 10 mg PO DIN [facility]; Protocol Last Admin: 01/12/18 17:47 Dose: 10 mg Clopidogrel Bisulfate (Plavix) 75 mg PO DAILY [facility]; Protocol Last Admin: 01/13/18 09:33 Dose: 75 mg Heparin Sodium (Porcine) (Heparin) 5,000 units SC Q8 [facility]; Protocol Last Admin: 01/13/18 13:57 Dose: Not Given Hydrochlorothiazide (Hydrodiuril) 25 mg PO 0800 [facility]; Protocol Last Admin: 01/13/18 08:40 Dose: 25 mg Ibuprofen (Motrin Tab) 600 mg PO Q6H PRN PRN Reason: Pain, Mild (1-3) Last Admin: 01/13/18 12:50 Dose: 600 mg Ketorolac Tromethamine (Toradol) 15 mg IVP Q6 [facility] Last Admin: 01/09/18 20:21 Dose: Not Given Levetiracetam (Keppra) 750 mg PO BID [facility] Last Admin: 01/13/18 09:26 Dose: Not Given Lorazepam (Ativan) 1 mg PO Q6H PRN; Protocol PRN Reason: Agitation Last Admin: 01/08/18 21:06 Dose: 1 mg Lorazepam (Ativan) 1 mg IVP ONCE PRN; Protocol PRN Reason: Seizure activity Memantine (Namenda) 10 mg PO DAILY [facility]; Protocol Last Admin: 01/13/18 09:27 Dose: 10 mg Potassium Phos/Sodium Phos (Neutra-Phos) 1 pkt PO BID [facility]; Protocol Last Admin: 01/13/18 09:27 Dose: 1 pkt - Labs Labs: 01/12/18 07:30 01/12/18 07:30 PT 12.2 SECONDS (9.4-12.5) 01/10/18 06:55 INR 1.06 01/10/18 06:55 APTT 37.8 Seconds (25.1-36.5) H 01/10/18 06:55 Attending/Attestation - Attestation I have personally seen and examined this patient.: Yes I have fully participated in the care of the patient.: Yes I have reviewed all pertinent clinical information, including history, physical exam and plan: Yes Notes (Text): 01/13/18 15:32 77 year old female with past medical history of hypertension, alzheimer's disease and seizure who initially presented with dizziness. While on floor she had episode of urinary retention, resolved. She also had seizure and was started on keppra. CT head and MRI brain were negative for acute findings. She was transferred to TCU for physical therapy rehabilitation. Continue with PT as tolerated. 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 Neurology follow up was appreciated and keppra dose was increased. Recommended EEG which can be done this coming week. Daughter is at bedside and concerned regarding generalized itching complaint. No rash or erythema on exam. No wheezing or dyspnea. Discussed with nursing staff we can change linens, sheets and quilt in room. She is on benadryl prn. Will continue to monitor. Capri Hazel MD Hospitalist.
[2018-01-14 08:32] LABS: BASO # 0.02 K/mm3 (0.0-2.0); BASO % 0.3 % (0.0-3.0); EOS # 0.1 (0.0-0.7); EOS % 1.7 % (1.5-5.0); GRAN # 5.33 (1.4-6.5); GRAN % 69.1 % (50.0-68.0); HEMOGLOBIN 11.4 g/dL (12.0-16.0); LYMPH # 1.7 (1.2-3.4); LYMPH % 21.4 % (22.0-35.0); MEAN CELL VOLUME 92.2 fl (80.0-105.0); MEAN CORPUSCULAR HEMOGLOBIN 30.8 pg (25.0-35.0); MEAN CORPUSCULAR HGB CONC 33.4 g/dl (31.0-37.0); MONO # 0.6 (0.1-0.6); MONO % 7.5 % (1.0-6.0); RBC 3.7 10^6/uL (3.5-6.1); RED CELL DISTRIBUTION WIDTH 13.6 % (11.5-14.5); WHITE BLOOD COUNT 7.7 10^3/ul (4.5-11.0)
[2018-01-14 09:03] LABS: ALB/GLOB RATIO 1.2 (1.1-1.8); ALBUMIN 4.2 g/dL (3.0-4.8); CALCIUM 10.9 mg/dL (8.4-10.5)
[2018-01-14] MEDS: Potassium & Sodium Phosphate PO SCH ×2 (09:41→18:19)
[2018-01-14] MEDS ORDERED: Magnesium Oxide 400 mg Tab UD PO ONE (14:14)
[2018-01-15 09:04] LABS: BASO # 0.02 K/mm3 (0.0-2.0); BASO % 0.3 % (0.0-3.0); EOS # 0.2 (0.0-0.7); EOS % 2.3 % (1.5-5.0); GRAN # 4.99 (1.4-6.5); HEMOGLOBIN 11.1 g/dL (12.0-16.0); LYMPH # 2.1 (1.2-3.4); LYMPH % 26.9 % (22.0-35.0); MEAN CELL VOLUME 92.2 fl (80.0-105.0); MEAN CORPUSCULAR HEMOGLOBIN 30.8 pg (25.0-35.0); MEAN CORPUSCULAR HGB CONC 33.4 g/dl (31.0-37.0); MEAN PLATELET VOLUME 9.5 fl (7.0-11.0); MONO # 0.5 (0.1-0.6); MONO % 6.5 % (1.0-6.0); RBC 3.6 10^6/uL (3.5-6.1); RED CELL DISTRIBUTION WIDTH 13.5 % (11.5-14.5); WHITE BLOOD COUNT 7.8 10^3/ul (4.5-11.0)
[2018-01-15 09:15] LABS: ALB/GLOB RATIO 1.2 (1.1-1.8); ALBUMIN 4.3 g/dL (3.0-4.8); CALCIUM 10.9 mg/dL (8.4-10.5)
[2018-01-15] MEDS: Potassium & Sodium Phosphate PO SCH ×2 (10:54→17:43)
[2018-01-15] MEDS ORDERED: Influenza Vaccine 60 mcg/0.5 mL SYR (4YR UP) IM ONE (13:26)
[2018-01-15] MEDS ORDERED: Magnesium Oxide 400 mg Tab UD PO ONE (13:54)
[2018-01-15 16:50] VITALS: BP 126/84; PULSE 85; TEMP 98.7; O2SAT 99
--- NOTE | 2018-01-15 22:06 | CP.PCM.DIS ---
<Hola Buckley - Last Filed: 01/15/18 22:29> Provider - Provider Date of Admission: 01/07/18 20:28 Attending physician: Capri Hazel MD Primary care physician: NO PRIMARY CARE PROVIDER Time Spent in preparation of Discharge (in minutes): 45 Diagnosis - Discharge Diagnosis (1) Seizure Status: Acute Priority: High (2) Generalized pruritus Status: Acute Priority: Medium Hospital Course - Lab Results Lab Results: Most Recent Lab Values WBC 7.8 10^3/ul (4.5-11.0) 01/15/18 08:55 RBC 3.60 10^6/uL (3.5-6.1) 01/15/18 08:55 Hgb 11.1 g/dL (12.0-16.0) L 01/15/18 08:55 Hct 33.2 % (36.0-48.0) L 01/15/18 08:55 MCV 92.2 fl (80.0-105.0) 01/15/18 08:55 MCH 30.8 pg (25.0-35.0) 01/15/18 08:55 MCHC 33.4 g/dl (31.0-37.0) 01/15/18 08:55 RDW 13.5 % (11.5-14.5) 01/15/18 08:55 Plt Count 266 10^3/uL (120.0-450.0) 01/15/18 08:55 MPV 9.5 fl (7.0-11.0) 01/15/18 08:55 Gran % 64.0 % (50.0-68.0) 01/15/18 08:55 Lymph % (Auto) 26.9 % (22.0-35.0) 01/15/18 08:55 [place] % (Auto) 6.5 % (1.0-6.0) H 01/15/18 08:55 Eos % (Auto) 2.3 % (1.5-5.0) 01/15/18 08:55 Baso % (Auto) 0.3 % (0.0-3.0) 01/15/18 08:55 Gran # 4.99 (1.4-6.5) 01/15/18 08:55 Lymph # (Auto) 2.1 (1.2-3.4) 01/15/18 08:55 [place] # (Auto) 0.5 (0.1-0.6) 01/15/18 08:55 Eos # (Auto) 0.2 (0.0-0.7) 01/15/18 08:55 Baso # (Auto) 0.02 K/mm3 (0.0-2.0) 01/15/18 08:55 PT 12.2 SECONDS (9.4-12.5) 01/10/18 06:55 INR 1.06 01/10/18 06:55 APTT 37.8 Seconds (25.1-36.5) H 01/10/18 06:55 Sodium 137 mmol/L (132-148) 01/15/18 08:55 Potassium 4.5 mmol/L (3.6-5.0) 01/15/18 08:55 Chloride 103 mmol/L (98-107) 01/15/18 08:55 Carbon Dioxide 24 mmol/L (21-33) 01/15/18 08:55 Anion Gap 14 (10-20) 01/15/18 08:55 BUN 24 mg/dL (7-21) H 01/15/18 08:55 Creatinine 1.2 mg/dl (0.7-1.2) 01/15/18 08:55 Est GFR ( Amer) 53 01/15/18 08:55 Est GFR (Non-Af Amer) 43 01/15/18 08:55 Random Glucose 123 mg/dL (70-110) H 01/15/18 08:55 Calcium 10.9 mg/dL (8.4-10.5) H 01/15/18 08:55 Phosphorus 3.4 mg/dL (2.5-4.5) 01/14/18 07:00 Magnesium 1.5 mg/dL (1.7-2.2) L 01/14/18 07:00 Total Bilirubin 0.6 mg/dL (0.2-1.3) 01/15/18 08:55 AST 36 U/L (14-36) 01/15/18 08:55 ALT 22 U/L (7-56) 01/15/18 08:55 Alkaline Phosphatase 76 U/L (38-126) 01/15/18 08:55 Total Protein 7.8 g/dL (5.8-8.3) 01/15/18 08:55 Albumin 4.3 g/dL (3.0-4.8) 01/15/18 08:55 Globulin 3.5 gm/dL 01/15/18 08:55 Albumin/Globulin Ratio 1.2 (1.1-1.8) 01/15/18 08:55 Prolactin 16.0 ng/mL (3.0-18.9) 01/10/18 23:55 - Hospital Course Hospital Course: Pt is a 77 yo female with PMH of Alzheimer's Disease, HTN, RA, GERD who presented to ED after experiencing generalized muscle tightness and inability to talk. Patient was accompanied by her daughters. Patients daughter stated that patient was at home with home health aide when she an episode of bilious vomiting followed by whole body shaking movements. She had whole body muscle rigidity and had clenched jaws. She was not able to communicate with her daughters. Symptoms were waxing and waning and lasted for about 3 hours and resolved on their own. Patient denied LOC and was aware of her surroundings. She was able to talk and her muscles relaxed while she was in the ED. She was found to have hyponatremia (123) and episode of urinary retention, which resolved. She was also treated with Vantin for UTI. EEG showed normal results, no epileptiform activity. She however, had one episode of seizure on 01/05/18 while inpatient. She was started on Keppra [address] head and MRI brain were negative for acute findings. She was subsequently transferred to TCU for physical therapy rehab. While in TCU, rapid response was called on 01/09/18 for seizure activity lasting 1 minute. Pt was shaking with some excess sputum production at the mouth and moaining while lying in bed. No tongue biting or urinary/bowel incontinence. Nursing reported patient feeling full body pruritis along with feeling something stuck in her throat. She was given 3mg Ativan (2 mg IM, and 1mg IV) and started on fluids NS 100 cc/hr. CXR was ordered and showed. Neurology was following pt while in TCU and recommended increasing Keppra to 750 mg PO BID. Repeat EEG was ordered, but subsequently cancelled because patient became fully awake, alert, and oriented x4. She was given Benadryl prn for itching. She has not had repeat seizure activity since. She is stable for discharge on Keppra 750 mg PO BID and her benedryl was changed to Claritin due to lower side effect profile. Discharge Exam - Head Exam Head Exam: ATRAUMATIC, NORMAL INSPECTION, NORMOCEPHALIC - Eye Exam Eye Exam: EOMI. absent: Scleral icterus - ENT Exam ENT Exam: Mucous Membranes Moist - Neck Exam Neck exam: Full Rom - Respiratory Exam Respiratory Exam: NORMAL BREATHING PATTERN. absent: Accessory Muscle Use, Wheezes, Respiratory Distress Additional comments: clear to ausculation bilateral - Cardiovascular Exam Cardiovascular Exam: REGULAR RHYTHM, +S1, +S2. absent: Diastolic murmur - GI/Abdominal Exam GI & Abdominal Exam: Normal Bowel Sounds, Soft. absent: Rebound, Tenderness - Extremities Exam Extremities exam: full ROM Additional comments: no calf tenderness or edema - Neurological Exam Neurological exam: Alert, Oriented x3 Additional comments: awake - Psychiatric Exam Psychiatric exam: Normal Affect, Normal Mood - Skin Skin Exam: Dry, Intact, Normal Color, Warm Discharge Plan - Discharge Medications Prescriptions: RX: amLODIPine [Norvasc] 10 mg PO DAILY #30 tab RX: hydroCHLOROthiazide [Hydrodiuril] 25 mg PO DAILY #30 tab RX: levETIRAcetam [Keppra] 750 mg PO BID #60 tab Loratadine [Claritin] 10 mg PO DAILY #30 tab - Follow Up Plan Condition: GOOD Disposition: HOME/ ROUTINE Instructions: EEG, Seizures, Adult (DC), Altered Mental Status (DC) Additional Instructions: 1. please see your primary care physician within 1 week from discharge 2. please take your medications as prescribed, the dose of your anti-epileptic medication was increased to Keppra 750mg twice a day via mouth 3. discontinue Benadryl, because it may worsen your urinary retention 4. please take claritin 10mg by mouth once daily 5. please discontinue taking taking cyclobenzaprine, this may worsen your urinary retention 6. you are being discharged home with services 7. please follow up outpatient with your neurologist within 1 week 8. if your symptoms return or worsen, please go to the nearest emergency department Referrals: PCP,NO [Primary Care Provider] - <Alina Ledbetter - Last Filed: 01/16/18 14:08> Provider - Provider Date of Admission: 01/07/18 20:28 Attending physician: Capri Hazel MD Primary care physician: NO PRIMARY CARE PROVIDER Hospital Course - Lab Results Lab Results: Most Recent Lab Values WBC 7.8 10^3/ul (4.5-11.0) 01/15/18 08:55 RBC 3.60 10^6/uL (3.5-6.1) 01/15/18 08:55 Hgb 11.1 g/dL (12.0-16.0) L 01/15/18 08:55 Hct 33.2 % (36.0-48.0) L 01/15/18 08:55 MCV 92.2 fl (80.0-105.0) 01/15/18 08:55 MCH 30.8 pg (25.0-35.0) 01/15/18 08:55 MCHC 33.4 g/dl (31.0-37.0) 01/15/18 08:55 RDW 13.5 % (11.5-14.5) 01/15/18 08:55 Plt Count 266 10^3/uL (120.0-450.0) 01/15/18 08:55 MPV 9.5 fl (7.0-11.0) 01/15/18 08:55 Gran % 64.0 % (50.0-68.0) 01/15/18 08:55 Lymph % (Auto) 26.9 % (22.0-35.0) 01/15/18 08:55 [place] % (Auto) 6.5 % (1.0-6.0) H 01/15/18 08:55 Eos % (Auto) 2.3 % (1.5-5.0) 01/15/18 08:55 Baso % (Auto) 0.3 % (0.0-3.0) 01/15/18 08:55 Gran # 4.99 (1.4-6.5) 01/15/18 08:55 Lymph # (Auto) 2.1 (1.2-3.4) 01/15/18 08:55 [place] # (Auto) 0.5 (0.1-0.6) 01/15/18 08:55 Eos # (Auto) 0.2 (0.0-0.7) 01/15/18 08:55 Baso # (Auto) 0.02 K/mm3 (0.0-2.0) 01/15/18 08:55 PT 12.2 SECONDS (9.4-12.5) 01/10/18 06:55 INR 1.06 01/10/18 06:55 APTT 37.8 Seconds (25.1-36.5) H 01/10/18 06:55 Sodium 137 mmol/L (132-148) 01/15/18 08:55 Potassium 4.5 mmol/L (3.6-5.0) 01/15/18 08:55 Chloride 103 mmol/L (98-107) 01/15/18 08:55 Carbon Dioxide 24 mmol/L (21-33) 01/15/18 08:55 Anion Gap 14 (10-20) 01/15/18 08:55 BUN 24 mg/dL (7-21) H 01/15/18 08:55 Creatinine 1.2 mg/dl (0.7-1.2) 01/15/18 08:55 Est GFR ( Amer) 53 01/15/18 08:55 Est GFR (Non-Af Amer) 43 01/15/18 08:55 Random Glucose 123 mg/dL (70-110) H 01/15/18 08:55 Calcium 10.9 mg/dL (8.4-10.5) H 01/15/18 08:55 Phosphorus 3.4 mg/dL (2.5-4.5) 01/14/18 07:00 Magnesium 1.5 mg/dL (1.7-2.2) L 01/14/18 07:00 Total Bilirubin 0.6 mg/dL (0.2-1.3) 01/15/18 08:55 AST 36 U/L (14-36) 01/15/18 08:55 ALT 22 U/L (7-56) 01/15/18 08:55 Alkaline Phosphatase 76 U/L (38-126) 01/15/18 08:55 Total Protein 7.8 g/dL (5.8-8.3) 01/15/18 08:55 Albumin 4.3 g/dL (3.0-4.8) 01/15/18 08:55 Globulin 3.5 gm/dL 01/15/18 08:55 Albumin/Globulin Ratio 1.2 (1.1-1.8) 01/15/18 08:55 Prolactin 16.0 ng/mL (3.0-18.9) 01/10/18 23:55 Attending/Attestation - Attestation I have personally seen and examined this patient.: Yes I have fully participated in the care of the patient.: Yes I have reviewed all pertinent clinical information, including history, physical exam and plan: Yes Notes (Text): 01/16/18 14:03 Medical record note made by the resident after discussion with my direction and input after the patient was personally seen and examined by me. I have reviewed the chart and agree that the record accurately reflects by personal performance of the history, physical exam, data review, and medical decision-making, in the course for the patient. I have also personally directed the plan of care. 77 YRS old female with PMH HTN, GERD, RA?, Alzheimer's dementia, recurrent UTI , diastolic CHF was admitted to [facility] Inpatient with dizziness and Presyncope followed by episode of muscle clenching in which the patient denies LOC and has full memory .Patient was found to have acute renal failure, hyponatremia due to over diuresis which is resolved with IV hydration .Neurology work up MRI of Brain and EEG was negative. However on 01/05/18 night patient was found to be confused, Rapid response was called for possible seizure. CT scan of head was negative. Patient was started on Keppra. Urinary Retention likely due to Baclofen and Flexeril, Calderon catheter was discontinued and patient was discharged to to TCU today for rehabilitation. Keppra dose was increased to 750 mg BID as she was thought to have an other seizure in TCU. Patient is tolerating Keppra, despite minor itching on PRN Loratidine. Patient will follow up with Neurology and will have repeat EEG as out patient. Management plan was discussed in detail with patient. Education was provided.
== END 2018-01-15 18:24 | disposition home health service (06) | DRG 101 ==
LOC: TRCU 20:28
PROVIDERS: ADMIT Internal Medicine; ATTEND Internal Medicine
PROC: F07Z9FZ Gait Training/Functional Ambulation Treatment using Assistive, Adaptive, Supportive or Protective Equipment (ICD-10-PCS; principal; 2018-01-09)
PROC: F07Z5ZZ Bed Mobility Treatment (ICD-10-PCS; 2018-01-09)
PROC: F07Z8FZ Transfer Training Treatment using Assistive, Adaptive, Supportive or Protective Equipment (ICD-10-PCS; 2018-01-09)
PROC: F07L6YZ Therapeutic Exercise Treatment of Musculoskeletal System - Lower Back / Lower Extremity using Other Equipment (ICD-10-PCS; 2018-01-09)
PROC: F08Z2FZ Grooming/Personal Hygiene Treatment using Assistive, Adaptive, Supportive or Protective Equipment (ICD-10-PCS; 2018-01-10)
PROC: F08Z1FZ Dressing Techniques Treatment using Assistive, Adaptive, Supportive or Protective Equipment (ICD-10-PCS; 2018-01-10)
DX: R56.9 Unspecified convulsions (principal); E87.1 Hypo-osmolality and hyponatremia; I50.30 Unspecified diastolic (congestive) heart failure; N39.0 Urinary tract infection, site not specified; I11.0 Hypertensive heart disease with heart failure; G30.9 Alzheimer's disease, unspecified; F02.80 Dementia in other diseases classified elsewhere, unspecified severity, without behavioral disturbance, psychotic disturbance, mood disturbance, and anxiety; M06.9 Rheumatoid arthritis, unspecified; L29.9 Pruritus, unspecified; K21.9 Gastro-esophageal reflux disease without esophagitis; M17.10 Unilateral primary osteoarthritis, unspecified knee; M81.0 Age-related osteoporosis without current pathological fracture; R33.0 Drug induced retention of urine; T42.8X5A Adverse effect of antiparkinsonism drugs and other central muscle-tone depressants, initial encounter; T48.1X5A Adverse effect of skeletal muscle relaxants [neuromuscular blocking agents], initial encounter

== ENCOUNTER 2018-04-23 14:15 | Outpatient (CLI) | payer MEDICARE, MEDICAID | END 2018-04-23 14:16 | disposition home or self-care (01) | LOC: RAD 14:15 ==

== ENCOUNTER 2018-05-03 11:52 | Emergency (ER) | payer MEDICAID ==
[2018-05-03 11:53] VITALS: BMI 28.3
[2018-05-03 12:12] VITALS: RESP 18; TEMP 97.6
[2018-05-03 12:37] VITALS: O2SAT 100
[2018-05-03] MEDS ORDERED: DiphenhydrAMINE 50 mg/ml Inj IVP STA (12:42)
--- NOTE | 2018-05-03 12:42 | ED PDOC ---
Arrival/HPI - General Chief Complaint: Chest Pain Time Seen by Provider: 05/03/18 12:03 Historian: Patient - History of Present Illness Narrative History of Present Illness (Text): 05/03/18 12:31 78 year old female, primarily Occitan speaking, whose past medical history includes hypertension, GERD, RA, and Alzheimer's disease, who presents to the emergency department complaining of chest pain, palpitations, and sorethroat. Patient states the chest pain and palpitations began last night. She describes the chest pain as constant with intermittent sharp pain. She notes she took 4 aspirins with little to no improvement. Patient has been experiencing sore throat for the past 2 weeks, she has difficulty swallowing. She reports secondary sinus congestion, rash, and itchy skin all over her body. Patient denies fevers, chills, headache, dizziness, shortness of breath, dyspnea on exertion, cough, abdominal pain, nausea, vomiting, diarrhea, back pain, neck pain, or any other complaint. PMD: Dr. Xie Symptom Onset: Gradual Symptom Course: Unchanged Activities at Onset: Light Context: Home Past Medical History - Provider Review Nursing Documentation Reviewed: Yes - Infectious Disease Hx of Infectious Diseases: None - Cardiac Hx Hypertension: Yes - Pulmonary Hx Respiratory Disorders: No - Neurological Hx Alzheimer's Disease: Yes - HEENT Hx Cataracts: Yes (sx ou) - Renal Hx Renal Disorder: No - Endocrine/Metabolic Hx Endocrine Disorders: No - Hematological/Oncological Hx Blood Disorders: No - Integumentary Hx Dermatological Disorder: No - Musculoskeletal/Rheumatological Hx Rheumatoid Arthritis: Yes - Gastrointestinal Hx Gastrointestinal Disorders: No - Genitourinary/Gynecological Hx Reproductive Disorders: No - Psychiatric Hx Psychophysiologic Disorder: No Hx Substance Use: No - Surgical History Hx Appendectomy: Yes - Anesthesia Hx Anesthesia: Yes Hx Anesthesia Reactions: No Hx Malignant Hyperthermia: No Family/Social History - Physician Review Nursing Documentation Reviewed: Yes Family/Social History: No Known Family HX Smoking Status: Never Smoked Hx Alcohol Use: No Hx Substance Use: No Allergies/Home Meds Allergies/Adverse Reactions: Allergies Iodinated Contrast- Oral and IV Dye [Iodinated Contrast Media - IV Dye] Allergy (Verified 10/07/15 14:42) RASH iodine Adverse Reaction (Verified 10/28/16 13:41) SWELLING Home Medications: Home Meds Medication Instructions Recorded Confirmed Clopidogrel [Plavix] 75 mg PO DAILY 02/03/17 01/07/18 Folic Acid 1 mg PO DAILY 02/03/17 01/03/18 Ascorbic Acid [Vitamin C with Zita 1 tab PO DAILY 01/03/18 01/03/18 Hips] Cyanocobalamin [Vitamin B12 1000 1 tab PO DAILY 01/03/18 01/03/18 mcg Tab] Diclofenac Sodium [Voltaren] 1 tab PO BID 01/03/18 01/03/18 Enalapril Maleate [Vasotec] 20 mg PO DAILY 01/03/18 01/03/18 Fish Oil/Dha/Epa [Fish Oil 1,200 1 cap PO DAILY 01/03/18 01/03/18 mg Fish Oil] Vitamin B Complex [Super B-50 1 cap PO DAILY 01/03/18 01/03/18 Complex] Review of Systems - Physician Review All systems were reviewed & negative as marked: Yes - Review of Systems Constitutional: absent: Fevers ENT: Sore Throat, Sinus Congestion Respiratory: absent: SOB, Cough Cardiovascular: Chest Pain, Palpitations Gastrointestinal: absent: Abdominal Pain, Diarrhea, Nausea, Vomiting Musculoskeletal: absent: Back Pain, Neck Pain Skin: Rash Neurological: absent: Headache, Dizziness Physical Exam Vital Signs Reviewed: Yes Vital Signs Temp Pulse Resp BP Pulse Ox 05/03/18 11:53 97.6 F 87 18 151/83 H 99 Temperature: Afebrile Blood Pressure: Hypertensive Pulse: Regular Respiratory Rate: Normal Appearance: Positive for: Well-Appearing, Non-Toxic, Comfortable Pain Distress: None Mental Status: Positive for: Alert and Oriented X 3 - Systems Exam Head: Present: Atraumatic, Normocephalic Pupils: Present: PERRL Extroacular Muscles: Present: EOMI Conjunctiva: Present: Normal Mouth: Present: Moist Mucous Membranes Pharnyx: Present: ERYTHEMA, TONSILS ENLARGED Neck: Present: Normal Range of Motion Respiratory/Chest: Present: Clear to Auscultation, Good Air Exchange, Tender to Palpation (to mid sternum). No: Respiratory Distress, Accessory Muscle Use Cardiovascular: Present: Regular Rate and Rhythm, Normal S1, S2. No: Murmurs Abdomen: No: Tenderness, Distention, Peritoneal Signs Back: Present: Normal Inspection Upper Extremity: Present: Normal Inspection. No: Cyanosis, Edema Lower Extremity: Present: Normal Inspection. No: Edema Neurological: Present: GCS=15, CN II-XII Intact, Speech Normal Skin: Present: Warm, Dry, Normal Color. No: Rashes Psychiatric: Present: Alert, Oriented x 3, Normal Insight, Normal Concentration Medical Decision Making ED Course and Treatment: 05/03/18 12:31 Impression: 78 year old female who presents to the emergency department complaining of chest pain, palpitations, and sore throat. Differential Diagnosis included but are not limited to: --Costochonditis --Gastritis --Esophagitis Plan: -- Labs -- Chest X-ray -- Benadryl -- Toradol -- Rapid Strep -- Urinalysis -- Reassess and disposition Prior Visits: Notes and results from previous visits were reviewed. Progress Notes: 05/03/18 14:41 Labs reviewed with no acute abnormalities. CXR shows no infiltrates or evidence of PTX. Patient noted to be sleeping comfortably at the bedside. - Lab Interpretations I have reviewed the lab results: Yes - RAD Interpretation Narrative RAD Interpretations (Text): 05/03/18 16:14 Chest X-ray reviewed, shows: IMPRESSION: No interval acute cardiopulmonary disease appreciated. Settlement Technician: Radiologist - EKG Interpretation EKG Interpretation (Text): 05/03/18 12:31 EKG reviewed by me, shows: NSR at 75bpm with 7 degree AV block and no ST elevations. Interpreted by ED Physician: Yes Type: 12 lead EKG - Scribe Statement The provider has reviewed the documentation as recorded by the Scribe Jocelyn Lopez Provider Scribe Attestation: All medical record entries made by the Scribe were at my direction and personally dictated by me. I have reviewed the chart and agree that the record accurately reflects my personal performance of the history, physical exam, medical decision making, and the department course for this patient. I have also personally directed, reviewed, and agree with the discharge instructions and disposition. Disposition/Present on Arrival - Present on Arrival Any Indicators Present on Arrival: Yes History of DVT/PE: No History of Uncontrolled Diabetes: No Urinary Catheter: Yes History of Decub. Ulcer: No History Surgical Site Infection Following: None - Disposition Have Diagnosis and Disposition been Completed?: Yes Diagnosis: Costochondral chest pain, Viral pharyngitis, Allergic reaction Disposition: HOME/ ROUTINE Disposition Time: 14:43 Patient Plan: Discharge Patient Problems: Current Active Problems Problem Status Onset Allergic reaction Acute Costochondral chest pain Acute Viral pharyngitis Acute Condition: STABLE Discharge Instructions (ExitCare): Chest Pain That Is Not Caused by the Heart (DC), Chest Pain (ED) Print Language: SAO TOMEAN Additional Instructions: All medical record entries made by the Titiibe were at my direction and personally dictated by me. I have reviewed the chart and agree that the record accurately reflects my personal performance of the history, physical exam, medical decision making, and the department course for this patient. I have also personally directed, reviewed, and agree with the discharge instructions and disposition. Please follow up with your PCP in 3-5 days Please monitor your symptoms for any worsening like fevers, nausea, emesis, or inability to tolerate food. Prescriptions: DiphenhydrAMINE [Benadryl] 50 mg PO Q6H #12 cap Mag&Al/Simet/Diphen/Lido [First Magic Mouthwash] 5 ml MM Q2H #1 kit Methylprednisolone [Medrol Dose Pack (21 tabs)] 4 mg PO DAILY #21 mg Forms: [employer] (Bengali)
[2018-05-03 12:49] LABS: VENOUS BLOOD GAS BASE EXCESS 0.7 mmol/L (0.0-2.0); VENOUS BLOOD GAS PO2 24 mm/Hg (30-55); VENOUS BLOOD PH 7.32 (7.32-7.43)
[2018-05-03 13:06] LABS: BASO # 0.02 K/mm3 (0.0-2.0); BASO % 0.2 % (0.0-3.0); EOS # 0.2 (0.0-0.7); EOS % 2.3 % (1.5-5.0); HEMOGLOBIN 11.4 g/dL (12.0-16.0); LYMPH # 2.5 (1.2-3.4); LYMPH % 30.4 % (22.0-35.0); MEAN CELL VOLUME 93.5 fl (80.0-105.0); MEAN CORPUSCULAR HEMOGLOBIN 30.7 pg (25.0-35.0); MEAN CORPUSCULAR HGB CONC 32.9 g/dl (31.0-37.0); MEAN PLATELET VOLUME 10.6 fl (7.0-11.0); MONO # 0.6 (0.1-0.6); MONO % 7.8 % (1.0-6.0); RBC 3.71 10^6/uL (3.5-6.1); RED CELL DISTRIBUTION WIDTH 13.3 % (11.5-14.5); WHITE BLOOD COUNT 8.1 10^3/uL (4.5-11.0)
[2018-05-03 13:14] LABS: INR 1.09; PARTIAL THROMBOPLASTIN TIME 30.6 Seconds (26.9-38.3); PROTHROMBIN TIME 12.3 SECONDS (9.4-12.5)
[2018-05-03 13:20] LABS: ALB/GLOB RATIO 1.3 (1.1-1.8); ALBUMIN 4.2 g/dL (3.0-4.8); BLOOD UREA NITROGEN 19 mg/dL (7-21); CALCIUM 10.3 mg/dL (8.4-10.5); GFR NON-AFRICAN AMERICAN 53
[2018-05-03 13:21] LABS: ALT/SGPT 17 U/L (7-56); AST/SGOT 33 U/L (14-36)
[2018-05-03 13:31] LABS: B-TYPE NATRIURETIC PEPTIDE 255 pg/mL (0-450); TROPONIN I < 0.01 ng/mL
--- NOTE | 2018-05-03 15:42 | RAD ---
Date of service: 05/03/2018 HISTORY: chest pain COMPARISON: Portable chest 01/10/2018. FINDINGS: LUNGS: No active pulmonary disease. PLEURA: No significant pleural effusion identified, no pneumothorax apparent. CARDIOVASCULAR: No aortic atherosclerotic calcification present. Normal cardiac size. No pulmonary vascular congestion. OSSEOUS STRUCTURES: No significant abnormalities. VISUALIZED UPPER ABDOMEN: Normal. OTHER FINDINGS: None. IMPRESSION: No interval acute cardiopulmonary disease appreciated.
--- NOTE | 2018-05-03 16:24 | CARD ---
APPROVED REPORT Date of service: 05/03/2018 EKG Measurement Heart [id number] <Conclusion> Sinus rhythm with 1st degree AV block Cannot rule out Anterior infarct, age undetermined Abnormal ECG
[2018-05-03 16:38] VITALS: BP 152/87; PULSE 84
== END 2018-05-03 16:41 | disposition home or self-care (01) ==
LOC: ED 11:52
DX: R07.9 Chest pain, unspecified (principal); J02.9 Acute pharyngitis, unspecified; T78.40XA Allergy, unspecified, initial encounter; X58.XXXA Exposure to other specified factors, initial encounter; G30.9 Alzheimer's disease, unspecified; I10 Essential (primary) hypertension; M06.9 Rheumatoid arthritis, unspecified
CPT/HCPCS: 71045; 80053; 82803; 83735; 83880; 84484; 85025; 85610; 85730; 93005; 96374; 96375; 99284; J1200; J1885

== ENCOUNTER 2018-05-30 08:33 | Outpatient (CLI) | payer MEDICAID | END 2018-05-30 08:34 | disposition home or self-care (01) | LOC: RAD 08:33 ==

== ENCOUNTER 2018-06-01 15:29 | Emergency (ER) | payer MEDICAID ==
[2018-06-01 15:30] VITALS: BMI 28.3
[2018-06-01 16:07] VITALS: RESP 18
--- NOTE | 2018-06-01 16:23 | ED PDOC ---
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 Patient reports experiencing associated headache and itching. Patient notes she was seen in the ER a few weeks ago for a sore throat and was given medication that provided some relief however her symptoms returned. Patient denies any diarrhea, nausea, urinary frequency, urinary output changes, or any other complaints. PMD: Dr. Xie Time/Duration: > week (2 weeks) Symptom Onset: Gradual Symptom Course: Unchanged Activities at Onset: Light Context: Work Past Medical History - Provider Review Nursing Documentation Reviewed: Yes - Infectious Disease Hx of Infectious Diseases: None - Reproductive Menopause: Yes - Cardiac Hx Cardiac Disorders: Yes Hx Hypertension: Yes - Pulmonary Hx Respiratory Disorders: No - Neurological Hx Alzheimer's Disease: Yes - HEENT Hx Cataracts: Yes (sx ou) - Renal Hx Renal Disorder: No - Endocrine/Metabolic Hx Endocrine Disorders: No - Hematological/Oncological Hx Blood Disorders: No - Integumentary Hx Dermatological Disorder: No - Musculoskeletal/Rheumatological Hx Rheumatoid Arthritis: Yes - Gastrointestinal Hx Gastrointestinal Disorders: No - Genitourinary/Gynecological Hx Reproductive Disorders: No - Psychiatric Hx Psychophysiologic Disorder: No Hx Substance Use: No - Surgical History Hx Appendectomy: Yes - Anesthesia Hx Anesthesia: Yes Hx Anesthesia Reactions: No Hx Malignant Hyperthermia: No Family/Social History - Physician Review Nursing Documentation Reviewed: Yes Family/Social History: No Known Family HX Smoking Status: Never Smoked Hx Alcohol Use: No Hx Substance Use: No Allergies/Home Meds Allergies/Adverse Reactions: Allergies Iodinated Contrast- Oral and IV Dye [Iodinated Contrast Media - IV Dye] Allergy (Verified 06/01/18 15:54) RASH iodine Adverse Reaction (Verified 06/01/18 15:54) SWELLING Home Medications: Home Meds Medication Instructions Recorded Confirmed Atorvastatin [Lipitor] 10 mg PO DIN 06/01/18 06/01/18 Enalapril Maleate [Vasotec] 20 mg PO DAILY 06/01/18 06/01/18 Folic Acid 1 mg PO DAILY 06/01/18 06/01/18 Furosemide [Lasix] 40 mg PO DAILY 06/01/18 06/01/18 Loratadine [Claritin] 10 mg PO DAILY 06/01/18 06/01/18 amLODIPine [Norvasc] 10 mg PO DAILY 06/01/18 06/01/18 Review of Systems - Physician Review All systems were reviewed & negative as marked: Yes - Review of Systems ENT: Sore Throat Gastrointestinal: Abdominal Pain. absent: Diarrhea, Nausea Genitourinary Female: absent: Frequency, Urine Output Changes Skin: Other (itching) Neurological: Headache Physical Exam Vital Signs Reviewed: Yes Vital Signs Temp Pulse Resp BP Pulse Ox 06/01/18 15:50 98.5 F 80 18 114/75 97 Temperature: Afebrile Blood Pressure: Normal Pulse: Regular Appearance: Positive for: Well-Appearing, Non-Toxic Mental Status: Positive for: Alert and Oriented X 3 - Systems Exam Head: Present: Atraumatic, Normocephalic Pupils: Present: PERRL Extroacular Muscles: Present: EOMI Conjunctiva: Present: Normal Mouth: Present: Moist Mucous Membranes Respiratory/Chest: Present: Clear to Auscultation, Good Air Exchange. No: Respiratory Distress, Accessory Muscle Use Cardiovascular: Present: Regular Rate and Rhythm, Normal S1, S2. No: Murmurs Abdomen: Present: Tenderness (mild to moderate left lower quadrant tenderness), Guarding (some gaurding). No: Rebound, Other (no rigidity) Upper Extremity: Present: Normal Inspection. No: Cyanosis, Edema Lower Extremity: Present: Normal Inspection. No: Edema Neurological: Present: GCS=15, CN II-XII Intact, Speech Normal Skin: Present: Warm, Dry, Normal Color. No: Rashes Psychiatric: Present: Alert, Oriented x 3, Normal Insight, Normal Concentration Medical Decision Making ED Course and Treatment: 06/01/18 16:20 Impression: Patient is a 78 year old female presenting to the emergency room complaining of abdominal pain and sore throat. Plan: -- CT of abdomen and pelvis -- EKG -- CMP -- Lipase -- CBC -- Urinalysis -- Reassess and disposition Prior Visits: Notes and results from previous visits were reviewed. Progress Notes: 06/01/18 19:27 patient was seen for multiple nonspecific complaints. CT was done to rule out diverticulitis, labs ok, ua neg. patient still reports skin itchiness as she ran out of her prescribed benadryl. - Scribe Statement The provider has reviewed the documentation as recorded by the Titiibanabelle Bosch All medical record entries made by the Scribe were at my direction and personally dictated by me. I have reviewed the chart and agree that the record accurately reflects my personal performance of the history, physical exam, medical decision making, and the department course for this patient. I have also personally directed, reviewed, and agree with the discharge instructions and disposition. Disposition/Present on Arrival - Present on Arrival Any Indicators Present on Arrival: No History of DVT/PE: No History of Uncontrolled Diabetes: No Urinary Catheter: Yes History of Decub. Ulcer: No History Surgical Site Infection Following: None - Disposition Have Diagnosis and Disposition been Completed?: Yes Diagnosis: Itching, Abdominal pain Disposition: HOME/ ROUTINE Disposition Time: 19:34 Patient Plan: Discharge Condition: STABLE Discharge Instructions (ExitCare): Acute Abdomen (Belly Pain), Adult (DC), Itchy Skin Prescriptions: DiphenhydrAMINE [Benadryl] 50 mg PO QID #30 cap Forms: [employer] (Micronesian)
[2018-06-01 17:37] LABS: BASO # 0.03 {null, K/mm3} (0.0-2.0); BASO % 0.5 % (0.0-3.0); EOS # 0.2 (0.0-0.7); EOS % 3.3 % (1.5-5.0); HEMOGLOBIN 10.8 g/dL (12.0-16.0); LYMPH # 2.4 (1.2-3.4); MEAN CELL VOLUME 94.7 fl (80.0-105.0); MEAN CORPUSCULAR HEMOGLOBIN 30.2 pg (25.0-35.0); MEAN CORPUSCULAR HGB CONC 31.9 g/dl (31.0-37.0); MEAN PLATELET VOLUME 10.5 fl (7.0-11.0); MONO # 0.5 (0.1-0.6); MONO % 7.5 % (1.0-6.0); RBC 3.58 {null, 10^6/uL} (3.5-6.1); WHITE BLOOD COUNT 6.4 {null, 10^3/uL} (4.5-11.0)
--- NOTE | 2018-06-01 18:13 | CT ---
Date of service: 06/01/2018 PROCEDURE: CT Abdomen and Pelvis without intravenous contrast HISTORY: diffuse lower abdominal pain COMPARISON: Abdomen ultrasound 05/30/2018. Abdomen pelvis CT without contrast 06/10/2017. TECHNIQUE: Helical CT of the abdomen and pelvis was performed without oral or intravenous contrast as per referring physician request. Coronal and sagittal reformats were generated.. Contrast dose: None Radiation dose: Total exam DLP = 712.48 mGy-cm. This CT exam was performed using one or more of the following dose reduction techniques: Automated exposure control, adjustment of the mA and/or kV according to patient size, and/or use of iterative reconstruction technique. FINDINGS: LOWER THORAX: Mild cardiomegaly reiterated with limited bibasilar dependent atelectasis present. LIVER: Unremarkable. No gross lesion or ductal dilatation. GALLBLADDER AND BILE DUCTS: Unremarkable. PANCREAS: Unremarkable. No gross lesion or ductal dilatation. SPLEEN: Unremarkable. ADRENALS: Unremarkable. No mass. KIDNEYS AND URETERS: Unremarkable. No hydronephrosis. No solid mass. VASCULATURE: Nonaneurysmal abdominal aortic calcific atherosclerotic changes are identified. Iliac arterial system atherosclerosis reiterated. BOWEL: Stomach is collapsed. Majority of bowel is collapsed including large-bowel. Limited sigmoid diverticulosis is reiterated without diverticulitis. APPENDIX: No CT evidence of appendicitis. PERITONEUM: Tiny umbilical hernia identified containing only fat. No measure edema, ascites or free intra peritoneal gas collection. LYMPH NODES: Unremarkable. No enlarged lymph nodes. BLADDER: Unremarkable. REPRODUCTIVE: Prior hysterectomy reiterated. BONES: No acute fracture. OTHER FINDINGS: None. IMPRESSION: No acute abdominal or pelvic findings. Nonacute sigmoid diverticular change identified. No bowel obstruction, measure edema, ascites or free intrarenal gas collection. Small umbilical hernia again identified containing only fat.
[2018-06-01 18:16] LABS: ALB/GLOB RATIO 1.3 (1.1-1.8); ALBUMIN 4.1 g/dL (3.0-4.8); CALCIUM 10.5 mg/dL (8.4-10.5)
[2018-06-01 18:49] VITALS: BP 127/53; PULSE 67; TEMP 98.3; O2SAT 100
[2018-06-01 19:00] LABS: PH,URINE 6.5 (4.7-8.0); URINE APPEARANCE CLEAR (CLEAR); URINE BILIRUBIN NEGATIVE (NEGATIVE); URINE BLOOD MODERATE (NEGATIVE); URINE COLOR STRAW (YELLOW); URINE GLUCOSE (UA) NEGATIVE (NEGATIVE); URINE LEUKOCYTE ESTERASE NEGATIVE Leu/uL (NEGATIVE); URINE PROTEIN NEGATIVE mg/dL (<30 mg/dL); URINE UROBILINOGEN 0.2 E.U./dL (<1 E.U./dL)
[2018-06-01 19:04] LABS: URINE RBC 25 - 30 /hpf (0-2)
--- NOTE | 2018-06-03 07:51 | CARD ---
APPROVED REPORT Date of service: 06/01/2018 EKG Measurement Heart [id number] <Conclusion> Normal sinus rhythm Normal ECG
== END 2018-06-01 19:50 | disposition home or self-care (01) ==
LOC: ED 15:29
DX: R10.9 Unspecified abdominal pain (principal); L29.9 Pruritus, unspecified; I10 Essential (primary) hypertension; K21.9 Gastro-esophageal reflux disease without esophagitis; G30.9 Alzheimer's disease, unspecified

== ENCOUNTER 2018-07-08 10:09 | Emergency (ER) | payer MEDICAID ==
[2018-07-08 10:22] VITALS: RESP 18; TEMP 98.2; O2SAT 100
[2018-07-08 10:27] VITALS: BMI 32.2
[2018-07-08] MEDS ORDERED: Sodium Chloride 0.9% 1,000 ML IV STA (10:27)
--- NOTE | 2018-07-08 10:40 | ED PDOC ---
Arrival/HPI - General Chief Complaint: Abdominal Pain Time Seen by Provider: 07/08/18 10:12 Historian: Patient - History of Present Illness Narrative History of Present Illness (Text): 07/08/18 10:36 A 78 year old female, whose past medical history includes dementia (baseline oriented x 3), appendectomy, hypertension, and hyperlipidemia, presents to the emergency department complaining of lower abdominal pain worsening for the past 3 days and subjective fever at night. Patient denies any vomiting, diarrhea, or any other complaints at this time. Time/Duration: < week (3 days) Past Medical History - Provider Review Nursing Documentation Reviewed: Yes - Infectious Disease Hx of Infectious Diseases: None - Cardiac Hx Cardiac Disorders: Yes Hx Hypertension: Yes - Pulmonary Hx Respiratory Disorders: No - Neurological Hx Alzheimer's Disease: Yes - HEENT Hx Cataracts: Yes (sx ou) - Renal Hx Renal Disorder: No - Endocrine/Metabolic Hx Endocrine Disorders: No - Hematological/Oncological Hx Blood Disorders: No - Integumentary Hx Dermatological Disorder: No - Musculoskeletal/Rheumatological Hx Osteoporosis: Yes Hx Rheumatoid Arthritis: Yes - Gastrointestinal Hx Gastrointestinal Disorders: No - Genitourinary/Gynecological Hx Reproductive Disorders: No - Psychiatric Hx Psychophysiologic Disorder: No Hx Substance Use: No - Surgical History Hx Appendectomy: Yes Other/Comment: Oopherectomy - Anesthesia Hx Anesthesia: Yes Hx Anesthesia Reactions: No Hx Malignant Hyperthermia: No Family/Social History - Physician Review Nursing Documentation Reviewed: Yes Family/Social History: No Known Family HX Smoking Status: Never Smoked Hx Alcohol Use: No Hx Substance Use: No Allergies/Home Meds Allergies/Adverse Reactions: Allergies Iodinated Contrast- Oral and IV Dye [Iodinated Contrast Media - IV Dye] Allergy (Verified 06/01/18 15:54) RASH iodine Adverse Reaction (Verified 06/01/18 15:54) SWELLING Home Medications: Home Meds Medication Instructions Recorded Confirmed Atorvastatin [Lipitor] 10 mg PO DIN 06/01/18 07/08/18 Enalapril Maleate [Vasotec] 20 mg PO DAILY 06/01/18 07/08/18 Folic Acid 1 mg PO DAILY 06/01/18 07/08/18 Furosemide [Lasix] 40 mg PO DAILY 06/01/18 07/08/18 Loratadine [Claritin] 10 mg PO DAILY 06/01/18 07/08/18 amLODIPine [Norvasc] 10 mg PO DAILY 06/01/18 07/08/18 Tramadol HCl [Ultram] 50 mg PO TID PRN 07/08/18 07/08/18 Review of Systems - Physician Review All systems were reviewed & negative as marked: Yes - Review of Systems Constitutional: Fevers (subjective fever) Gastrointestinal: Abdominal Pain (lower region). absent: Diarrhea, Vomiting Physical Exam Vital Signs Reviewed: Yes Vital Signs Temp Pulse Resp BP Pulse Ox 07/08/18 10:18 98.2 F 67 18 125/70 100 Temperature: Afebrile Blood Pressure: Normal Pulse: Regular Respiratory Rate: Normal Appearance: Positive for: Well-Appearing, Non-Toxic, Comfortable Pain Distress: None Mental Status: Positive for: Alert and Oriented X 3 - Systems Exam Head: Present: Atraumatic, Normocephalic Pupils: Present: PERRL Extroacular Muscles: Present: EOMI Conjunctiva: Present: Normal Mouth: Present: Moist Mucous Membranes Neck: Present: Normal Range of Motion Respiratory/Chest: Present: Clear to Auscultation, Good Air Exchange. No: Respiratory Distress, Accessory Muscle Use Cardiovascular: Present: Regular Rate and Rhythm, Normal S1, S2. No: Murmurs Abdomen: Present: Tenderness (lower abdominal region). No: Distention, Peritoneal Signs, Rebound, Guarding Back: Present: Normal Inspection Upper Extremity: Present: Normal Inspection. No: Cyanosis, Edema Lower Extremity: Present: Normal Inspection. No: Edema Neurological: Present: GCS=15, CN II-XII Intact, Speech Normal Skin: Present: Warm, Dry, Normal Color. No: Rashes Psychiatric: Present: Alert, Oriented x 3, Normal Insight, Normal Concentration Medical Decision Making ED Course and Treatment: 07/08/18 10:38 Impression: 78 year old female with lower abdominal pain worsening for the past 3 days and subjective fever at night. ro uti, colitis, diverticulitis Plan: -- EKG -- Abd/Pelvis CT -- Chest X-ray -- Labs -- IV Fluids -- Tylenol -- Urinalysis -- Reassess and disposition Progress Notes: EKG: Ordered, reviewed, and independently interpreted the EKG. Rate : 67 BPM Rhythm : NSR Interpretation : Non-specific ST- and T wave changes. Comparison : No previous EKG for comparison. 07/08/18 13:06 pt reassesd. pain improved. ct neg for acute pahtology. urine treated. no leukoctyosis, no fever in ner. vitals stable. stable for dc. return precautions advised. - RAD Interpretation Radiology Orders: 07/08/18 10:27 ABD & PELVIS W/O PO OR IV CONT [CT] Stat CHEST PORTABLE [RAD] Stat - Medication Orders Current Medication Orders: Sodium Chloride (Sodium Chloride 0.9%) 1,000 mls @ 100 mls/hr IV .Q10H STA Stop: 07/08/18 20:26 Discontinued Medications Acetaminophen (Tylenol 325mg Tab) 975 mg PO STAT STA Stop: 07/08/18 10:29 - Scribe Statement The provider has reviewed the documentation as recorded by the Roscoe Bell Provider Scribe Attestation: All medical record entries made by the Scribe were at my direction and personally dictated by me. I have reviewed the chart and agree that the record accurately reflects my personal performance of the history, physical exam, medical decision making, and the department course for this patient. I have also personally directed, reviewed, and agree with the discharge instructions and disposition. Disposition/Present on Arrival - Present on Arrival Any Indicators Present on Arrival: No History of DVT/PE: No History of Uncontrolled Diabetes: No Urinary Catheter: Yes History of Decub. Ulcer: No History Surgical Site Infection Following: None - Disposition Have Diagnosis and Disposition been Completed?: Yes Diagnosis: Abdominal pain, UTI (urinary tract infection) Disposition: HOME/ ROUTINE Disposition Time: 12:00 Condition: STABLE Discharge Instructions (ExitCare): Urinary Tract Infections in Adults, Acute Abdomen (Belly Pain), Adult (DC) Print Language: ENGLISH Additional Instructions: please follow up with your doctor/clinic and specialists in next 1- 2 days. return to any er with worsening. Prescriptions: Cefpodoxime [Vantin] 100 mg PO BID #14 tab Referrals: Marlee Lee MD [Staff Provider] - Follow up with primary Orquidea Lee MD [Medical Doctor] - Follow up with primary Tricia Xie MD [Primary Care Provider] - Follow up with primary Thom Barlow MD [Staff Provider] - Follow up with primary Forms: [employer] (Swiss)
[2018-07-08 11:07] LABS: ALB/GLOB RATIO 1.2 (1.1-1.8); ALBUMIN 3.3 g/dL (3.0-4.8); ALT/SGPT 19 U/L (7-56); AMYLASE 68 U/L (35-125); AST/SGOT 19 U/L (14-36); BLOOD UREA NITROGEN 16 mg/dL (7-21); CALCIUM 10.7 mg/dL (8.4-10.5); GFR NON-AFRICAN AMERICAN > 60; LIPASE 74 U/L (23-300)
[2018-07-08 11:14] LABS: BASO # 0.02 K/mm3 (0.0-2.0); BASO % 0.3 % (0.0-3.0); EOS # 0.2 (0.0-0.7); EOS % 3.7 % (1.5-5.0); HEMOGLOBIN 10.4 g/dL (12.0-16.0); LYMPH # 1.9 (1.2-3.4); LYMPH % 32.5 % (22.0-35.0); MEAN CELL VOLUME 92.7 fl (80.0-105.0); MEAN CORPUSCULAR HEMOGLOBIN 30.5 pg (25.0-35.0); MEAN CORPUSCULAR HGB CONC 32.9 g/dl (31.0-37.0); MEAN PLATELET VOLUME 10.4 fl (7.0-11.0); MONO # 0.6 (0.1-0.6); RBC 3.41 10^6/uL (3.5-6.1); RED CELL DISTRIBUTION WIDTH 13.8 % (11.5-14.5); WHITE BLOOD COUNT 5.7 10^3/uL (4.5-11.0)
[2018-07-08 11:18] LABS: INR 1.01; PARTIAL THROMBOPLASTIN TIME 24.2 Seconds (26.9-38.3); PROTHROMBIN TIME 11.4 SECONDS (9.4-12.5); TROPONIN I < 0.01 ng/mL
--- NOTE | 2018-07-08 11:44 | CT ---
PROCEDURE: CT Abdomen and Pelvis without Oral or IV contrast. HISTORY: lower abd pain h/o of diverticulitis COMPARISON: CT abdomen and pelvis without contrast performed 06/01/18 TECHNIQUE: Contiguous axial images of the abdomen and pelvis. No oral or IV contrast administered. Coronal and Sagittal reformats generated and reviewed. Radiation dose: Total exam DLP = 644.61 mGy-cm. This CT exam was performed using one or more of the following dose reduction techniques: Automated exposure control, adjustment of the mA and/or kV according to patient size, and/or use of iterative reconstruction technique. FINDINGS: There is limited evaluation of the solid organs without the administration of IV contrast. LOWER THORAX: Mild bibasilar atelectasis. No visible pleural effusion or pneumothorax. LIVER: Unremarkable unenhanced appearance. GALLBLADDER AND BILE DUCTS: Unremarkable unenhanced appearance. PANCREAS: Atrophy. Calcifications at the pancreatic tail presumed vascular. SPLEEN: Unremarkable unenhanced appearance. ADRENALS: 1.8 x 1.5 cm right adrenal gland nodule measures approximately 1 HU consistent with adenoma. Hypertrophy of the left adrenal gland. KIDNEYS AND URETERS: No hydronephrosis or obstructing renal calculus. BLADDER: Mildly thick-walled under distended urinary bladder. REPRODUCTIVE: Uterus is not identified presumably due to hysterectomy. APPENDIX: No secondary signs of acute appendicitis. BOWEL: The stomach is nondistended. Lack of oral contrast limits evaluation for bowel pathology. The bowel loops appear within normal limits of caliber without evidence of intestinal obstruction. PERITONEUM: No significant free fluid. No definite free air. LYMPH NODES: No bulky lymphadenopathy identified. VASCULATURE: Atherosclerotic calcifications of the aorta branches. No aortic aneurysm. BONES: Degenerative changes. 6 mm anterolisthesis of L5 on S1. OTHER FINDINGS: Small fat containing umbilical hernia. IMPRESSION: Mildly thick-walled under distended urinary bladder; correlate with urinalysis. 1.8 x 1.5 cm right adrenal gland nodule measures approximately 1 HU consistent with adenoma. Hypertrophy of the left adrenal gland. Additional findings as above.
[2018-07-08 12:14] LABS: URINE BILIRUBIN NEGATIVE (NEGATIVE); URINE BLOOD SMALL (NEGATIVE); URINE GLUCOSE (UA) NEGATIVE (NEGATIVE); URINE LEUKOCYTE ESTERASE SMALL Leu/uL (NEGATIVE); URINE PROTEIN NEGATIVE mg/dL (<30 mg/dL); URINE UROBILINOGEN 0.2 E.U./dL (<1 E.U./dL)
[2018-07-08 12:19] LABS: URINE APPEARANCE CLEAR (CLEAR); URINE COLOR YELLOW (YELLOW)
[2018-07-08 12:20] VITALS: BP 128/59; PULSE 66
[2018-07-08 12:23] LABS: URINE AMORPHOUS SEDIMENT FEW /hpf; URINE BACTERIA MANY /hpf
--- NOTE | 2018-07-08 12:29 | RAD ---
HISTORY: abd pain COMPARISON: Chest x-ray performed 05/03/18 and 09/22/17 TECHNIQUE: Chest, one view. FINDINGS: Examination limited by habitus. LUNGS: No focal consolidation. Please note that chest x-ray has limited sensitivity for the detection of pulmonary masses. PLEURA: No significant pleural effusion identified. No definite pneumothorax . CARDIOVASCULAR: Heart size appears top normal. 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 Atherosclerotic calcifications of the aorta. Alternatives such as adenopathy cannot be excluded. OSSEOUS STRUCTURES: Degenerative changes. VISUALIZED UPPER ABDOMEN: Unremarkable. OTHER FINDINGS: None. IMPRESSION: Heart size appears top normal. Stable appearance of the mediastinum possibly related to aortic ectasia. Alternatives including adenopathy cannot be excluded.
--- NOTE | 2018-07-08 20:33 | CARD ---
APPROVED REPORT Date of service: 07/08/2018 EKG Measurement Heart [id number] <Conclusion> Poor data quality, interpretation may be adversely affected Sinus rhythm with marked sinus arrhythmia with 1st degree AV block Otherwise normal ECG
== END 2018-07-08 13:00 | disposition home or self-care (01) ==
LOC: ED 10:09
DX: N39.0 Urinary tract infection, site not specified (principal); R10.30 Lower abdominal pain, unspecified; I10 Essential (primary) hypertension; E78.5 Hyperlipidemia, unspecified; G30.9 Alzheimer's disease, unspecified; M06.9 Rheumatoid arthritis, unspecified
CPT/HCPCS: 71045; 74176; 80053; 81001; 82150; 82550; 83615; 83690; 84484; 85025; 85610; 85730; 87086; 93005; 99284; J7030